=== PATIENT | female | born 1985 | race Caucasian/White ===

== ENCOUNTER 2023-03-07 10:08 | Outpatient (CLI) | payer BC, SELFPAY ==
--- NOTE | 2023-03-07 10:15 | CRLHL7_ITS ---
For Patients: As a result of the Century Cures Act, medical imaging exams and procedure reports are released immediately into your electronic medical record. You may view this report before your referring provider. If you have questions, please contact your health care provider. INDICATION: VAGINAL BLEEDING COMPARISON: None. TECHNIQUE: Real-time leonardo-scale imaging of the pelvis was performed. FINDINGS: Sonographic imaging demonstrates a single living intrauterine gestation. The embryo demonstrates a regular cardiac rate measuring 123 beats per minute. The embryo`s crown-rump length measurement of 0.7 cm corresponds to a gestational age of 6 weeks 4 days with a sonographic due date of 10/27/2023. There is a normal-appearing yolk sac. There are no gross abnormalities noted within the embryo at this early state of development. The gestational sac has a normal appearance. There is a 1.3 x 1.5 x 0.9 cm perigestational hemorrhage. The amount of fluid within the sac appears appropriate for gestational age. The cervix is closed. The myometrium appears normal. The ovaries are of normal size. Corpus luteal cyst left ovary. There are no suspicious fluid collections noted in the cul-de-sac. IMPRESSION: Single living intrauterine with sonographic gestational age 6 weeks 4 days and sonographic due date 10/27/2023. Left fundal subchorionic hemorrhage measuring 1.3 x 1.5 x 0.9 cm. Dictated by Koby Burks MD @ 03/07/2023 10:51:36 AM (Electronically Signed)
== END 2023-03-07 10:09 | disposition home or self-care (01) ==
LOC: US 10:09
PROVIDERS: Visit Provider Physician Assistant
DX: O09.521 Supervision of elderly multigravida, first trimester (principal); Z3A.01 Less than 8 weeks gestation of pregnancy
CPT/HCPCS: 76817; 86703; 86803; 86850; 86900; 86901; 87086; 87340

== ENCOUNTER 2023-03-07 11:25 | Outpatient (CLI) | payer BC, SELFPAY | END 2023-03-07 11:26 | disposition home or self-care (01) | PROVIDERS: Visit Provider Advanced Practice Midwife | DX: Z34.91 Encounter for supervision of normal pregnancy, unspecified, first trimester (principal); Z3A.01 Less than 8 weeks gestation of pregnancy | CPT/HCPCS: 86592; 86703; 86762; 86787; 86803; 86850; 86900; 86901; 87086; 87340 ==

== ENCOUNTER 2023-07-22 15:32 | Outpatient (CLI) | payer BC, SELFPAY ==
--- OUTSIDE RECORDS SUMMARY | 2023-07-22 15:36 | XMS_ITS | Clinical Summary ---
Author Name Unknown Organization [email or web address] [facility] Address [place], [place] [address] Care Team Providers Care Cello Teacher Name Role Phone Brayan, Jerri Petty CNM Primary Care Provider +1- [phone] Allergies No known active allergies Medications Medication Sig Dispensed Refills Start Date End Date Status PHENERGAN-CODEINE 6.25 MG-10 MG/5 ML SYRUP take 5 milliliters by oral route every 6 hours as needed, not to exceed 30 ml in 24 hours 180 0 11/18/2008 Active Active Problems Problem Noted Date Diagnosed Date Multigravida of advanced maternal age in second trimester 05/30/2023 History of delivery, antepartum 023 History of gestational hypertension 05/30/2023 MPP Supervision of high-risk 3 Overview: Bárbara Camposllo : 1985 MPP ULTRASOUND/TESTING PATIENT MPP CONSULT ON Support person name: ULTRASOUND TYPE: L2 REASON FOR VISIT: AMA NEXT VISIT ALERTS: NURSING VISIT ALERT: Create and link episode at day of visit. Document in Dating section. GA: 18w6d Final VON by LMP LMP Date: 01/18/23 VON: 10/25/23 Early US: Date: GA: 6w4d VON: 10/27/23 PrePregnancy Weight: 161 Height: 5'4 BMI: 27.6 PLANS & FUTURE APPOINTMENTS: ULTRASOUND/GROWTH PLAN: - Through: - Growth: Next TESTING PLAN: - Testing: Through DELIVERY PLAN: - Scheduled delivery: - Preferred delivery location: PRIMARY DIAGNOSIS: 37 y.o. . Estimated Date of Delivery: 10/25/23. MATERNAL AMA (38 at delivery) 202 - Term LTCS for NRFHT, GHTN, was on labetalol and stopped 6 weeks PREVIOUS ULTRASOUNDS: 03/07/23 6w4d CRL (PCP) ECHO: REFERRING PHYSICIAN/PHONE/LAST UPDATE: Marifer Morrissey Primary MD approves scheduling of recommended ultrasounds/testing: Not specified SPECIALISTS/CONSULTS: Include: Specialty MD Clinic Name Phone# [place] and ADDED TO PATIENT CARE TEAM GENETICS: Declines/Not Done CARE COORDINATION: PERTINENT LABS: Labs reviewed? Normal? Blood type: O Positive Antibody screen: Negative Non-[facility] labs need to be entered in [email or web address]? Yes PERTINENT MEDS: bASA PROCEDURES: IF FGR <10% or EFW <2000 grams: Add FGRPCOM PLAN OF CARE: Original and updated POC Comments Yes Encounters Date Type Department Care Team Description 06/03/2023 Telephone [facility] [address] [place] [phone] Jo Cueto MBBS Appointment 06/03/2023 Travel 05/30/2023 2:13 PM RECYCLING OPERATOR - 05/30/2023 11:59 PM RECYCLING OPERATOR Hospital Encounter [facility] [address] [place] [address] Jerri Schmidt CNM Supervision of high risk in second trimester (Primary Dx); High risk , antepartum; Multigravida of advanced maternal age in second trimester; History of delivery, antepartum; History of gestational hypertension 05/30/2023 Travel 04/30/2023 Transcribe Orders [facility] [address] [address] Jerri Schmidt CNM 04/30/2023 Transcribe Orders [facility] [address] [address] Consuelo Bailey HUC from Last 3 Months Immunizations Name Administration Dates Next Due Tdap 01/14/2008 Social History Tobacco Use Types Packs/Day Years Used Date Smoking Tobacco: Every Day Cigarettes Comments Yes Sex and Gender Information Value Date Recorded Sex Assigned at Not on file Gender Identity Not on file Sexual Orientation Not on file Obstetrics History Para Term AB IAB SAB Ectopic Multiple Livin g Live Births 4 1 1 2 1 1 1 1 Date Outcome GA Total Labor Labor/2nd/3rd Weight Sex Delivery Anes PTL Raina A1 A5 Name Cl in IAB SAB 03/09 Term 37w 1d 0h 02m 0h 02m 2.42 kg (5 lb 5.4 oz) M CS-Unspec Epidu ral N Brielle ng 9 9 LIANNA TOMI,B SAGE BOY David servin MD Complications:-alen barbara hypertension Delivery Location:[facility] [place]) Current Last Filed Vital Signs Vital Sign Reading Time Taken Comments Blood Pressure 120/70 11/18/2008 3:59 PM CDT Pulse - - Temperature 37.6 ??C (99.7 ??F) 11/18/2008 3:59 PM CD T Respiratory Rate - - Oxygen Saturation - - Inhaled Oxygen Concentration - - Weight 65.9 kg (145 lb 3.2 oz) 11/18/2008 3:59 P M CDT Height - - Body Mass Index - - Plan of Treatment Health Maintenance Due Date Last Done Comments Depression screening for age 12+ 1997 HIV for age 15-65 2000 BMI (ht and wt on same day) for age 18+ 2003 Hepatitis C screening for age 18-79 2003 Pap test for age 21-65 2006 Tetanus booster 01/13/2018 01/14/2008 Influenza for age 9-49 03/01/2023 Tdap Completed 01/14/2008 COVID-19 vaccine series Completed 05/17/20 23, 02/07/2022, 11/12/2020, Additional history exists Pneumococcal series for age 6-64 Aged Out No longer eligible based on patient's age to complete this topic Procedures Procedure Name Priority Date/Time Associated Diagnosis Comments US OB DETAIL ANATOMY SINGLE Routine 05/30/2023 3:14 PM RECYCLING OPERATOR High risk , antepartum from Last 3 Months Results * US OB DETAIL ANATOMY SINGLE (05/30/2023 3:14 PM RECYCLING OPERATOR) Anatomical Region Laterality Modality , 2or 3 TRIMESTER Ultrasound 05/30/2023 3:02 PM RECYCLING OPERATOR Narrative 05/30/2023 3:55 PM RECYCLING OPERATOR Referred By: JERRI ??BRAYAN ??CNM Indications Code 18 weeks gestation of Z3A.18 Advanced maternal age, multigravida 40806 Hx of small baby Previous C/S Low risk NIPT IMPRESSION: Intrauterine at 18w 6d. presentation is Variable. EFW 260 grams, percentile: 45. ?? Growth parameters and estimated weight are appropriate for gestational age. ? No major structural anomalies identified. No markers for aneuploidy identified. Normal Deepest Vertical Pocket of amniotic fluid: 4.8 ??cm. Placental location: Anterior. ?? There is no evidence of placenta previa. The placental edge is 2.0cm from the internal os. There are no signs of placenta accreta spectrum. The transabdominal cervical length is 3 cm. ?? RECOMMENDATIONS: -Return to primary provider for continued care. -No alterations in the delivery plan are necessary. -No medication changes are indicated. Continue aspirin until delivery. -No BPPs or NSTs suggested. -The option of amniocentesis was presented and Bárbara asked multiple thoughtful questions. For genetic counseling visit if she would like to pursue amniocentesis, she will call our office. -Recommend a growth ultrasound at 32-34 weeks' due to history of a prior SGA infant and hypertensive disorder of . -OK to perform the recommended follow up growth US in the primary OB office with referral back to [facility] if growth restriction is identified. COMMENT: The patient was seen by the Perinatologist today. ??The previous ultrasound and the records were reviewed. ??The results of today's ultrasound were communicated to the patient. ?? Alternatives available for detecting anomalies, aneuploidy and predicting developmental outcome for this were ??discussed as indicated. ??The risks, benefits and limitations of maternal serum screening, ultrasound, and genetic amniocentesis were reviewed with the patient. ??At the conclusion of our visit the patient declined any further genetic screening or testing, being satisfied by the risk reduction of today's normal ultrasound study. She reports a low risk NIPT result, though this was not sent to our office for review at the time of her referral. Bárbara asked multiple thoughtful questions about amniocentesis, including the information obtained, the risks of the procedure, and she is considering an amnio for reassurance purposes. We reviewed the option of a virtual genetic counseling appointment to further discuss the potential information gained from amnio, the risk of an uninterpretable or unclear result (such as a variant of unknown significance). Bárbara & her partner will discuss further and call our office if they would like to proceed with amniocentesis. We reviewed her history of gestational hypertension and SGA infant, her son was 5.5 lbs at at 37 weeks. She is taking low dose aspirin which I recommend she continue until delivery. Unclear if SGA was related to placental dysfunction or hypertension but, given the recurrence risk of poor growth, a 3rd trimester scan is reasonable. We reviewed her history of . No signs of placenta previa, placenta accreta spectrum, or complication of the prior hysterotomy. She is undecided on mode of delivery and will continue to discuss with the primary OB team. All questions answered. New government regulations related to the Cures act require that this note be released to the patient immediately, sometimes before the referring provider has been contacted. ??A portion of the information was presented verbally to the patient. ??The remainder is submitted as background for the referring provider, to be discussed as needed. Medical Decision Making: Moderate Level 79783 ?Multiple Diagnoses including with AMA, history of gHTN, history of SGA, history of ?Moderate Data including review of prior ultrasound and review of prior external notes, personal review/interpretation of labs and records ?Low risk of mortality to the fetus from amniocentesis which was considered and declined. Services Provided: Procedures Code DETAIL ANATOMY 76525.0 Procedure Note Maite Adamson MD - 05/30/2023 Referred By: JERRI SCHMIDT [facility] IndicationsCode 18 weeks gestation of cbdhgvfaxF1Q.18 Advanced maternal age, [id number] Hx of small baby Previous C/S Low risk NIPT IMPRESSION: Intrauterine at 18w 6d. presentation is Variable. EFW 260 grams, percentile: 45. Growth parameters and estimated weight are appropriate forgestational age. No major structural anomalies identified. No markers for aneuploidy identified. Normal Deepest Vertical Pocket of amniotic fluid: 4.8 cm. Placental location: Anterior. There is no evidence of placenta previa. The placental edge is 2.0cm fromthe internal os. There are no signs of placenta accreta spectrum. The transabdominal cervical length is 3 cm. RECOMMENDATIONS: -Return to primary provider for continued care. -No alterations in the delivery plan are necessary. -No medication changes are indicated. Continue aspirin until delivery. -No BPPs or NSTs suggested. -The option of amniocentesis was presented and Bárbara asked multiplethoughtful questions. For genetic counseling visit if she would like to pursue amniocentesis, [place] call our office. -Recommend a growth ultrasound at 32-34 weeks' due to history of a priorSGA infant and hypertensive disorder of . -OK to perform the recommended follow up growth US in the primary OBoffice with referral back to [facility] if growth restriction is identified. COMMENT: The patient was seen by the Perinatologist today. The previous ultrasoundand the records were reviewed. The results of today's ultrasound werecommunicated to the patient. Alternatives available for detecting anomalies, aneuploidy andpredicting developmental outcome for this were discussed as indicated. The risks,benefits and limitations of maternal serum screening, ultrasound, and genetic amniocentesis werereviewed with the patient. At the conclusion of our visit the patient declined any furthergenetic screening or testing, being satisfied by the risk reduction of today's normalultrasound study. She reports a low risk NIPT result, though this was not sent to our office for reviewat the time of her referral. Bárbara asked multiple thoughtful questions about amniocentesis,including the information obtained, the risks of the procedure, and she is consideringan amnio for reassurance purposes. We reviewed the option of a virtual geneticcounseling appointment to further discuss the potential information gained from amnio, the risk ofan uninterpretable or unclear result (such as a variant of unknown significance). Bárbara & herpartner will discuss further and call our office if they would like to proceed withamniocentesis. We reviewed her history of gestational hypertension and SGA , renetta was 5.5 lbs at at 37 weeks. She is taking low dose aspirin which I recommend shecontinue until delivery. Unclear if SGA was related to placental dysfunction orhypertension but, given the recurrence risk of poor growth, a 3rd trimester scan is reasonable. We reviewed her history of . No signs of placenta previa,placenta accreta spectrum, or complication of the prior hysterotomy. She is undecided on mode ofdelivery and will continue to discuss with the primary OB team. All questions answered. New government regulations related to the Cures act requirethat this note be released to the patient immediately, sometimes before the referringprovider has been contacted. A portion of the information was presented verbally to thepatient. The remainder is submitted as background for the referring provider, to be discussed asneeded. Medical Decision Making: Moderate Level 21843 Multiple Diagnoses including with AMA, history of gHTN,history of SGA, history of Moderate Data including review of prior ultrasound and review of priorexternal notes, personal review/interpretation of labs and records Low risk of mortality to the fetus from amniocentesis which wasconsidered and declined. Services Provided: ProceduresCode DETAIL [id number] Jerri Schmidt CNM from Last 3 Months Care Teams Cello Teacher Relationship Specialty Start Date End Date Jerri Schmidt CNM [address] [place] [phone] PCP - General Certified Nurse Alteration Tailor 05/30/23
== END 2023-07-22 15:33 | disposition home or self-care (01) ==
PROVIDERS: Visit Provider Advanced Practice Midwife
DX: O09.522 Supervision of elderly multigravida, second trimester (principal); O13.2 Gestational [pregnancy-induced] hypertension without significant proteinuria, second trimester; Z3A.26 26 weeks gestation of pregnancy
CPT/HCPCS: 82565; 82570; 84156; 84450; 84460; 84520; 84550

== ENCOUNTER 2023-07-25 06:00 | Outpatient (CLI) | payer BC, SELFPAY ==
--- OUTSIDE RECORDS SUMMARY | 2023-07-26 06:49 | XMS_ITS | Clinical Summary ---
Author Name Unknown Organization [employer] [facility] [employer] [facility] Address [place], [place] [address] Care Team Providers Care Dope Maintenance Worker Name Role Phone Brayan, Jerri Petty CNM Primary Care Provider +1- [phone] Allergies No known active allergies Medications Medication [...] MPP Supervision of high-risk 3 Overview: Bárbara Mix Fuller : 1985 MPP ULTRASOUND/TESTING PATIENT MPP CONSULT [...] [facility] labs need to be entered in [employer]? Yes PERTINENT MEDS: bASA PROCEDURES: IF FGR <10% or EFW <2000 grams: Add FGRPCOM PLAN OF CARE: Original and updated POC Comments Yes Encounters Date Type Department Care Team Description 06/03/2023 Telephone [facility] [address] [place] [phone] Jo Cueto MBBS Appointment 06/03/2023 Travel 05/30/2023 2:13 PM SOCIAL WORKER HEALTH SERVICES - 05/30/2023 11:59 PM SOCIAL WORKER HEALTH SERVICES Hospital Encounter [facility] [address] [place] [address] Jerri Schmidt CNM Supervision of high risk in second trimester (Primary Dx); High risk , antepartum; Multigravida of advanced maternal age in second trimester; History of delivery, antepartum; History of gestational hypertension 05/30/2023 Travel 04/30/2023 Transcribe Orders [facility] [address] [address] Jerri Schmidt CNM 04/30/2023 Transcribe Orders [facility] [address] [address] Consuelo Bailey HUC from Last 3 Months [...] David servin MD Complications:-alen barbara hypertension Delivery Location:[facility] [place]) Current Last Filed Vital Signs Vital [...] DETAIL ANATOMY SINGLE Routine 05/30/2023 3:14 PM SOCIAL WORKER HEALTH SERVICES High risk , antepartum from Last 3 Months Results * US OB DETAIL ANATOMY SINGLE (05/30/2023 3:14 PM SOC[facility]) Anatomical Region Laterality Modality , 2or 3 TRIMESTER Ultrasound 05/30/2023 3:02 PM SOCIAL WORKER [facility] Narrative 05/30/2023 3:55 PM SOCIAL WORKER HE[facility] SERVICES Referred By: JERRI ??BRAYAN ??CNM Indications Code 18 weeks gestation of Z3A.18 Advanced maternal age, multigravida 14096 Hx of small baby Previous C/S Low [...] primary OB office with referral back to [facility] if growth restriction is identified. COMMENT: The [...] as needed. Medical Decision Making: Moderate Level 46328 ?Multiple Diagnoses including with AMA, history of gHTN, history of SGA, history of ?Moderate Data including review of prior ultrasound and review of prior external notes, personal review/interpretation of labs and records ?Low risk of mortality to the fetus from amniocentesis which was considered and declined. Services Provided: Procedures Code DETAIL ANATOMY 22960.0 Procedure Note Maite Adamson MD - 05/30/2023 Referred By: JERRI SCHMIDT [facility] IndicationsCode 18 weeks gestation of rrckyyzbsI3F.18 Advanced maternal age, [id number] Hx of small baby Previous C/S Low [...] the primary OBoffice with referral back to [facility] if growth restriction is identified. COMMENT: The [...] discussed asneeded. Medical Decision Making: Moderate Level 85705 Multiple Diagnoses including with AMA, history of gHTN,history of SGA, history of Moderate Data including review of prior ultrasound and review of priorexternal notes, personal review/interpretation of labs and records Low risk of mortality to the fetus from amniocentesis which wasconsidered and declined. Services Provided: ProceduresCode DETAIL [id number] Jerri Shcmidt CNM from Last 3 Months Care Teams Dope Maintenance Worker Relationship Specialty Start Date End Date Jerri Schmidt CNM [address] [place] [phone] PCP - General Certified Nurse Insurance Representative 05/30/23
== END 2023-07-25 06:01 | disposition home or self-care (01) ==
LOC: NFLDREF 07-26 06:47
PROVIDERS: Visit Provider Advanced Practice Midwife
DX: O09.522 Supervision of elderly multigravida, second trimester (principal); G43.909 Migraine, unspecified, not intractable, without status migrainosus; R80.9 Proteinuria, unspecified
CPT/HCPCS: 82570; 84156

== ENCOUNTER 2023-08-02 14:49 | Outpatient (CLI) | payer BC, SELFPAY ==
--- OUTSIDE RECORDS SUMMARY | 2023-08-02 14:50 | XMS_ITS | Clinical Summary ---
Author Name Unknown Organization [employer] [facility] [employer] Address [place], [place] [address] Care Team Providers Care Psychiatric Orderly Name Role Phone Brayan, Jerri Petty CNM Primary Care Provider +1- [phone] Allergies No known active allergies Medications Medication [...] MPP Supervision of high-risk 3 Overview: Bárbara Fuller : 1985 MPP ULTRASOUND/TESTING PATIENT MPP [...] Delivery: 10/25/23. MATERNAL AMA (38 at delivery) 2021 - Term LTCS for NRFHT, GHTN, was [...] [facility] labs need to be entered in [employer]? Yes PERTINENT MEDS: bASA PROCEDURES: IF FGR <10% or EFW <2000 grams: Add FGRPCOM PLAN OF CARE: Original and updated POC Comments Yes Encounters Date Type Department Care Team Description 06/03/2023 Telephone [facility] [address] [place] [address] Jo Cueto MBBS Appointment 06/03/2023 Travel 05/30/2023 2:13 PM BARREL BUILDER - 05/30/2023 11:59 PM BARREL BUILDER Hospital Encounter [facility] [address] [facility] [address] [place], [place] [id number] Jerri Schmidt CNM Supervision of high risk in second trimester (Primary Dx); High risk , antepartum; Multigravida of advanced maternal age in second trimester; History of delivery, antepartum; History of gestational hypertension 05/30/2023 Travel from Last 3 Months Immunizations Name Administration [...] 9 9 LIANNA TOMI,B SAGE BOY David medel Zheng servin MD Complications:-alen barbara hypertension Delivery [facility]) Current Last Filed Vital Signs Vital [...] Tdap Completed 01/14/2008 COVID-19 vaccine series Completed 05/17/20, 02/07/2022, 11/12/2020, Additional history exists Pneumococcal series for age 6-64 Aged Out No longer eligible based on patient's age to complete this topic Procedures Procedure Name Priority Date/Time Associated Diagnosis Comments US OB DETAIL ANATOMY SINGLE Routine 05/30/2023 3:14 PM BARREL BUILDER High risk , antepartum from Last 3 Months Results * US OB DETAIL ANATOMY SINGLE (05/30/2023 3:14 PM BARREL BUILDER) Anatomical Region Laterality Modality , 2or 3 TRIMESTER Ultrasound 05/30/2023 3:02 PM BARREL BUILDER Narrative 05/30/2023 3:55 PM BARREL BUILDER Referred By: JERRI ??BRAYAN ??CNM Indications Code 18 weeks gestation of Z3A.18 Advanced maternal age, multigravida 86755 Hx of small baby Previous C/S Low [...] due to history of a prior SGA and hypertensive disorder of . -OK to perform the recommended follow up growth US in the primary OB office with referral back to [facility] if growth restriction is identified. COMMENT: [...] as needed. Medical Decision Making: Moderate Level 95649 ?Multiple Diagnoses including with AMA, history of gHTN, history of SGA, history of ?Moderate Data including review of prior ultrasound and review of prior external notes, personal review/interpretation of labs and records ?Low risk of mortality to the fetus from amniocentesis which was considered and declined. Services Provided: Procedures Code DETAIL ANATOMY 99471.0 Procedure Note Maite Adamson MD - 05/30/2023 Referred By: JERRI SCHMIDT [facility] IndicationsCode 18 weeks gestation of [id number].18 Advanced maternal age, [id number] Hx of small baby Previous C/S Low [...] weeks' due to history of a priorSGA and hypertensive disorder of . -OK to perform the recommended follow up growth US in the primary OBoffice with referral back to [facility] if growth restriction is identified. COMMENT: [...] a variant of unknown significance). Bárbara & ivon will discuss further and call our office if they would like to proceed withamniocentesis. We reviewed her history of gestational hypertension and SGA infant, renetta was 5.5 lbs at at 37 [...] answered. New government regulations related to the 21st Century Cures act requirethat this note be released to the patient immediately, sometimes before the referringprovider has been contacted. A portion of the information was presented verbally to thepatient. The remainder is submitted as background for the referring provider, to be discussed asneeded. Medical Decision Making: Moderate Level 10869 Multiple Diagnoses including with AMA, history of gHTN,history of SGA, history of Moderate Data including review of prior ultrasound and review of priorexternal notes, personal review/interpretation of labs and records Low risk of mortality to the fetus from amniocentesis which wasconsidered and declined. Services Provided: ProceduresCode DETAIL [id number] Jerri cShmidt CNM from Last 3 Months Care Teams Psychiatric Orderly Relationship Specialty Start Date End Date Jerri Schmidt CNM [address] [place] [phone] PCP - General Certified Nurse Plumbing Installer 05/30/23
--- NOTE | 2023-08-02 15:00 | CRLHL7_ITS ---
For Patients: As a result of the Cures Act, medical imaging exams and procedure reports are released immediately into your electronic medical record. You may view this report before your referring provider. If you have questions, please contact your health care provider. OB ULTRASOUND LMP: 01/18/2023. VON by LMP: 10/25/2023. GA: 28 w, 0 d. Single. COMPARISON: No. INDICATION: Essential hypertension. CERVIX: Not visualized. POSITIONING: Breech, transverse. AMNIOTIC FLUID: 7.4 cm. PLACENTA: Technique: Transabdominal. PLACENTA POSITION: Anterior. DOPPLER: heart rate: 132 bpm. Biometry: BPD: 7.3 cm. 29 w, 1 d, 75 percent. HC: 26.9 cm. 29 w, 2 d, 60 percent. AC: 24.6 cm. 28 w, 6 d, 67 percent. FL: 5.2 cm. 27 w, 4 d, 24 percent. FL/AC ratio: 21.06 percent. HC/AC ratio: 1.09. EFW: 1233 g. Weight: 2 lbs, 11 oz. age by this US: 28 w, 5 d. VON by this US: 10/20/2023. Percentile by VON: 56 percent. IMPRESSION: Single live intrauterine gestation at 28 weeks 5 days. VON of 10/20/2023. Single deepest pocket measures 7.4 cm bordering on polyhydramnios. Cristy Suarez M.D. Diagnostic/Breast Radiologist [email or web address] LEON/[email or web address] singh/Dictated by: Cristy Suarez MD @ 08/05/2023 5:55:00 AM (Electronically Signed)
== END 2023-08-02 14:50 | disposition home or self-care (01) ==
LOC: US 14:49
PROVIDERS: Visit Provider Obstetrics & Gynecology
DX: O10.913 Unspecified pre-existing hypertension complicating pregnancy, third trimester (principal); O40.3XX0 Polyhydramnios, third trimester, not applicable or unspecified; O09.523 Supervision of elderly multigravida, third trimester; Z3A.28 28 weeks gestation of pregnancy
CPT/HCPCS: 76815; 86592

== ENCOUNTER 2023-08-30 12:13 | Outpatient (CLI) | payer BC, SELFPAY ==
--- NOTE | 2023-08-30 12:15 | US_ITS ---
Patient: JODEE PEREZ Facility:?[facility] RIS Patient ID:?[id number] Site Patient ID:?[id number]. Site :?1985 Study:?US-OB Pelvis BPP W GROWTH-08/30/2023 12:49:39 PM Ordering Physician:?REJI SINGH Final Report: Indication: Gestational proteinuria Technique: Transabdominal grayscale and color Doppler ultrasound of the gravid uterus and fetus Comparison: None Findings: Provided gestational age: 32 weeks and 0 days. Intrauterine gestation in transverse lie. The heart rate is 145 beats per minute and regular. Biparietal diameter: 8.1 centimeters Head circumference: 30.4 centimeters Abdominal circumference: 29.4 centimeters Femur length: 6.0 centimeters. Composite sonographic estimated gestational age 32 weeks and 5 days. The estimated weight is 2037 grams or 4 pounds and 8 ounces. This is the 63rd percentile for gestational age. movement: 2/2 tone: 2/2 Respiratory activity: 2/2 Amniotic Fluid: 2/2 Deepest vertical pocket: 4.4 centimeters. Anterior placenta. No previa. The maternal cervix was not seen. Impression: Viable intrauterine gestation with growth concordant with dates and a biophysical profile score of 8/8. Dictated by Jerri Jules MD @ 08/31/2023 8:06:26 AM Signed by:?Jerri Jules MD @08/31/2023 8:06:26 AM (Electronic Signature)
== END 2023-08-30 12:14 | disposition home or self-care (01) ==
LOC: US 12:13
PROVIDERS: Visit Provider Obstetrics & Gynecology
DX: O12.13 Gestational proteinuria, third trimester (principal); Z3A.32 32 weeks gestation of pregnancy
CPT/HCPCS: 76816; 76819

== ENCOUNTER 2023-09-06 08:15 | Outpatient (CLI) | payer BC, SELFPAY ==
--- NOTE | 2023-09-06 08:15 | US_ITS ---
Patient: JODEE PEREZ Facility:?[facility] Patient ID:?[id number] Site Patient ID:?[id number]. Site :?1985 Study:?US-OB Pelvis BPP-09/06/2023 9:43:36 AM Ordering Physician:?Darya Thomson Final Report: INDICATION: Gestational Proteinuria COMPARISON: 08/30/2023 TECHNIQUE: Real time leonardo scale imaging of the fetus was performed. Without non-stress testing. FINDINGS: Sonographic imaging demonstrates a single living intrauterine gestation. Fetus demonstrates a regular cardiac rate of 135 beats per minute. Fetus has a vertex position. The amniotic fluid volume appears normal and there is a single deepest pocket measurement of 6.8 cm. The fetus was active and demonstrated normal breathing movements. There was normal flexion and extension of the trunk and extremities. IMPRESSION: Normal biophysical profile score of 8 out of 8. Dictated by Koby Burks MD @ 09/06/2023 10:06:10 AM Signed by:?Koby Burks MD @09/06/2023 10:06:10 AM (Electronic Signature)
== END 2023-09-06 08:16 | disposition home or self-care (01) ==
LOC: US 08:15
PROVIDERS: Visit Provider Obstetrics & Gynecology
DX: O12.10 Gestational proteinuria, unspecified trimester (principal)
CPT/HCPCS: 76819

== ENCOUNTER 2023-09-13 12:56 | Outpatient (CLI) | payer BC, SELFPAY ==
--- NOTE | 2023-09-13 13:00 | US_ITS ---
Patient: JODEE PEREZ Facility:?[facility] RIS Patient ID:?[id number] Site Patient ID:?[id number]. Site :?1985 Study:?US-OB Pelvis BPP-09/13/2023 1:33:31 PM Ordering Physician:?REJI SINGH Final Report: INDICATION: Gestational proteinuria. COMPARISON: OB ultrasound 09/06/2023. TECHNIQUE: Ultrasound OB pelvis biophysical profile. Real time leonardo scale imaging of the fetus was performed without non-stress testing. FINDINGS: Sonographic imaging demonstrates a single living intrauterine gestation. The fetus demonstrates a regular cardiac rate of 134 beats per minute. The fetus has a cephalic orientation. The placenta lies anteriorly. Single deepest pocket measures 6.8 cm (2/2). The fetus was active (2/2). There was normal flexion and extension of the trunk and extremities (2/2). The fetus demonstrated normal breathing movements (2/2). IMPRESSION: Normal biophysical profile score 8 out of 8. Dictated by Rosa Parry MD @ 09/14/2023 2:49:46 AM Signed by:?Rosa Parry MD @09/14/2023 2:49:46 AM (Electronic Signature)
== END 2023-09-13 12:57 | disposition home or self-care (01) ==
LOC: US 12:57
PROVIDERS: Visit Provider Obstetrics & Gynecology
DX: O12.10 Gestational proteinuria, unspecified trimester (principal)
CPT/HCPCS: 76819; 82565; 82570; 84156

== ENCOUNTER 2023-09-19 12:14 | Outpatient (CLI) | payer BC, SELFPAY ==
--- NOTE | 2023-09-19 12:15 | US_ITS ---
Patient: JODEE PEREZ Facility:?[facility] Patient ID:?[id number] Site Patient ID:?[id number]. Site :?1985 Study:?US-OB Pelvis BPP-09/19/2023 1:02:26 PM Ordering Physician:?Darya Thomson Final Report: INDICATION: Hypertension COMPARISON: 09/13/2019 TECHNIQUE: Real time leonardo scale imaging of the fetus was performed. Without non-stress testing. FINDINGS: Sonographic imaging demonstrates a single living intrauterine gestation. Fetus demonstrates a regular cardiac rate of 149 beats per minute. Fetus has a vertex position. The amniotic fluid volume appears normal and there is a single deepest pocket measurement of 5.0 cm. The fetus was active and demonstrated normal breathing movements. There was normal flexion and extension of the trunk and extremities. IMPRESSION: Normal biophysical profile score of 8 out of 8. Dictated by Koby Burks MD @ 09/20/2023 9:56:03 AM Signed by:?Koby Burks MD @09/20/2023 9:56:03 AM (Electronic Signature)
== END 2023-09-19 12:15 | disposition home or self-care (01) ==
LOC: US 12:15
PROVIDERS: Visit Provider Obstetrics & Gynecology
DX: O16.9 Unspecified maternal hypertension, unspecified trimester (principal); O12.10 Gestational proteinuria, unspecified trimester
CPT/HCPCS: 76819; 80069; 82043; 82570; 87086

== ENCOUNTER 2023-09-27 13:01 | Outpatient (CLI) | payer BC, SELFPAY ==
--- NOTE | 2023-09-27 13:00 | US_ITS ---
Patient: JODEE PEREZ Facility:?[facility] RIS Patient ID:?[id number] Site Patient ID:?[id number]. Site :?1985 Study:?US-OB Pelvis BPP W GROWTH-09/27/2023 1:46:21 PM Ordering Physician:?REJI SINGH Final Report: BIOPHYSICAL PROFILE AND FOLLOW-UP LIMITED OB US INDICATION: Chronic HTN in . VON by LMP: 10/25/2023. GA: 36 weeks 0 days. Christensen. COMPARISON: 09/19/2023, 09/13/2023 and 09/06/2023. CERVIX: Not visualized. Positioning: Vertex. Amniotic Fluid: 7 cm SDP. Placenta Technique: TA. Placenta Position: Anterior. Heart Rate: 144 bpm. BPD: 8.7 cm, 35 weeks 2 days, 36%. HC: 32.5, 36 weeks 6 days, 38%. AC: 33.5 cm, 37 weeks 3 days, 90%. FL: 6.9 cm, 35 weeks 4 days, 34%. FL/AC Ratio: 20.71. HC/AC Ratio Percentage: 0.97. EFW: 2988 grams, 6 lb, 9 oz. Age by this US: 36 weeks 2 days. VON by this US: 10/23/2023. Percentile by VON: 69%. BIOPHYSICAL PROFILE Gross Body Movements: 2. Tone: 2. Respiratory Activity: 2. Amniotic Fluid SDP: 2. TOTAL: 8/8. IMPRESSION: 1. Single live intrauterine gestation at 36 weeks 2 days. VON of 10/23/2023. 2. Biophysical profile score 8 out of 8. Cristy Suarez M.D. Diagnostic/Breast Radiologist [email or web address] LEON/[email or web address] / DW/Dictated by: Cristy Suarez MD @ 09/29/2023 8:42:00 AM Signed by:Antonio Suarez MD @09/29/2023 5:35:13 PM (Electronic Signature)
== END 2023-09-27 13:02 | disposition home or self-care (01) ==
LOC: US 13:01
PROVIDERS: Visit Provider Obstetrics & Gynecology
DX: O10.913 Unspecified pre-existing hypertension complicating pregnancy, third trimester (principal); Z3A.36 36 weeks gestation of pregnancy
CPT/HCPCS: 76816; 76819; 87081; 87653

== ENCOUNTER 2023-10-18 15:18 | Outpatient (CLI) | payer BC, SELFPAY ==
--- OUTSIDE RECORDS SUMMARY | 2023-10-18 15:21 | XMS_ITS | Referral Summary ---
Author Name Unknown Organization [facility] Address [address] [place] [address] Care Team Providers Care Atmospheric Sciences Professor Name Role Phone Unavailable Primary Care Provider Unavailabl e Source Comments Patient records contain information from all sites at [facility]. For routine questions regarding patient records, call [phone] during business hours, M-F 8:00 AM - 5:00 PM Central Time. Record requests for emergency care only can be directed to [phone] at any time.[facility] Encounters Date Type Department Care Team Description 09/30/2023 2:30 PM CDT External Outreach Division of Nephrology and Hypertension in [place], [place] [address] [place] [phone] Abhishek Bullock Jr., D.O. Gestational Proteinuria First Trimester (HCC) (Primary Dx) 08/20/2023 2:30 PM PRECISION AIRCRAFT STRUCTURE ASSEMBLER External Outreach Division of Nephrology and Hypertension in [place], [place] [address] [place] [phone] Liliana Lee M.D., Ph.D. Proteinuria (Primary Dx); With Personal History Gestational Hypertension (HCC) from Last 3 Months Active Problems Problem Noted Date Diagnosed Date Gestational Proteinuria First Trimester 09/30/19 24 Comments Yes Social History Tobacco Use Types Packs/Day Years Used Date Smoking Tobacco: Never Assessed Nutrition Answer Date Recorded Nutrition: EVOO Fat Source Unknown 08/15 Nutrition: Servings of Fruits/Vegetables per Day Not on file 08/15/2023 Dental Answer Date Recorded Dental: Regular Dentist Unknown 08/15/19 24 Comments Yes Sex and Gender Information Value Date Recorded Sex Assigned at Not on file Gender Identity Not on file Sexual Orientation Not on file Last Filed Vital Signs Vital Sign Reading Time Taken Comments Blood Pressure 122/72 09/30/2023 2:59 PM CDT Pulse 97 09/30/2023 2:59 PM CDT Temperature - - Respiratory Rate - - Oxygen Saturation - - Inhaled Oxygen Concentration - - Weight - - Height 162.5 cm (5' 3.98) 09/30/2023 2:59 PM CD T Body Mass Index - - Plan of Treatment Not on file
--- OUTSIDE RECORDS SUMMARY | 2023-10-18 15:21 | XMS_ITS ---
Author Name Unknown Organization [facility] Address [address] [place] [address] Care Team Providers Care Set Up Inspector Name Role Phone Unavailable Unavailable Unavailable Surgery Details Not on file Complications Check Surgery Details section. Procedure Estimated Blood Loss Check Surgery Details section. Procedure Findings Check Surgery Details section. Procedure Specimens Taken Check Surgery Details section.
--- OUTSIDE RECORDS SUMMARY | 2023-10-18 15:21 | XMS_ITS | Encounter Summary ---
Author Name Unknown Organization [facility] Address [address] [place] [address] Care Team Providers Care Whiskey Regauger Name Role Phone Unavailable Primary Care Provider Unavailabl e Reason for Visit * Appointment Request (Routine) - Closed Specialty Diagnoses / Procedures Referred By Contjulia teague Referred To Contact Nephrology and Hypertension Referral ID Status Reason Start Date Expiration Date Visits Re quested Visits Authorized [id number] Closed 08/29/2023 08/28/2024 1 1 Encounter Details Date Type Department Care Team (Latest Contact Info) Description 09/30/2023 2:30 PM CDT External Outreach Division of Nephrology and Hypertension in [place], [place] [address] [place] [phone] Abhishek Bullock Jr., D.O. [address] [place] [phone] Gestational Proteinuria First Trimester (HCC) (Primary Dx) Social History Tobacco Use Types Packs/Day Years [...] on file Sexual Orientation Not on file documented as of this encounter Last Filed Vital Signs Vital Sign Reading Time Taken Comments Blood Pressure 122/72 09/30/2023 2:59 PM CDT Pulse 97 09/30/2023 2:59 PM CDT Temperature - - Respiratory Rate - - Oxygen Saturation - - Inhaled Oxygen Concentration - - Weight - - Height 162.5 cm (5' 3.98) 09/30/2023 2:59 PM CD T Body Mass Index - - documented in this encounter Progress Notes * Abhishek Bullock Jr., D.O. - 09/30/2023 2:30 PM CDT Referring Provider: DR Sam SUBJECTIVE REASON FOR VISIT [facility] Follow-up regards proteinuria in HISTORY OF PRESENT ILLNESS Ms. Fuller is a 38 y.o. female who presents with proteinuria complicating her current . This is her 4th , she had 1 live . She is currently at 36 weeks. We are visiting with her on the background of proteinuria discovered at 26 weeks, which was over 400 mg in 24 hours. She was subsequently rechecked at 518 mg in 24 hours on the 12 of September. She hasnot had lower extremity swelling, she has not had any elevation blood pressure. Home blood pressures have been in the 118-120 range. She does not have any right upper quadrant pain, she does not haveany shortness of breath at rest. She is feeling quite nauseated often, and has GERD symptoms. During her which completed in March of 2022, she underwent C- section and had elevatedblood pressures without proteinuria during that . Unfortunately baseline proteinuria was not done between her 2021 and the current . She is currently being treated with asp irin. She is excellent movements, and the size seems to be appropriate. She is planning on a on the 10 of October, likely [facility] where there is a intensive care unit. She is drinking plenty of fluids, no changes in urine character or quantity, her urine is not foamy, she does not have any dysuria urgency or frequency, no fevers no chills. Appreciate she saw obstetrics team on the 26 of September. No past medical history on file. No current outpatient medications on file. REVIEW OF SYSTEMS All other systems reviewed and are negative. OBJECTIVE BP 122/72 Pulse 97 Ht 162.5 cm PHYSICAL EXAMINATION General: Awake alert oriented HEENT: BAM, EOMI, Mucous membranes moist, no oral lesions Neck: No Masses, No Bruits Lungs: Clear to ascultation Heart: Regular Rate and Rhythm, No ectopy Murmurs or rubs Abdomen: Gravid abdomen Extremities: No cyanosis, No clubbing: No edema Neuro: Cranial Nerves intact, Gait is normal, strength grossly normal Skin: no suspicious lesions identified Psychiatric: Normal affect DIAGNOSTICS Note hemoglobin 11.6, serum sodium 132, creatinine 0.6 mg/dL, on the background of a substantial urine volume of over 3.9 L, she has 518 mg of proteinuria in 24 hours, of September 13, 2023 her protein to creatinine ratio 0.4 milligrams/gram ASSESSMENT / PLAN #1 Gestational Proteinuria First Trimester (HCC) She is sub nephrotic range proteinuria associated with the . Her previous in March of 2022 was complicated by hypertension, without proteinuria. Going forward: 1. Daily blood pressure management, initiate labetalol if blood pressure rises above 140 systolic 2. Continue aspirin 3. Continue vitamins 4. Continue with plan towards delivery in a center with capacity to handle NICU. She is planning toproceed with a trial of labor prior to the . 5. No NSAIDs or Mims 2 inhibitors 6. I have asked her to be extremely careful with sodium 7. Agree with her drinking fluids to the extent that she is manufacturing at least 3.5 L of urine. 8. Agree with a urinalysis with microalbumin to creatinine ratio and a 24 hour urine proximally 2-3months following her delivery. This was ordered by Dr. Stone. Total time: 30 minutes Counseling Time: 20 minutes Abhishek Bullock Jr., D.O. documented in this encounter Plan of Treatment Not on file documented as of this encounter Visit Diagnoses Diagnosis Gestational Proteinuria First Trimester (HCC)- Primary documented in this encounter
--- OUTSIDE RECORDS SUMMARY | 2023-10-18 15:21 | XMS_ITS | Encounter Summary ---
Author Name Unknown Organization [facility] Address [address] [place] [id number] Care Team Providers Care Bingo Manager Name Role Phone Unavailable Primary Care Provider Unavailabl e Reason for Visit * Appointment Request (Routine) - Closed Specialty Diagnoses / Procedures Referred By Sultana t Referred To Contact Nephrology and Hypertension Fallon Rueda M.D. [address] [place] [address] Referral ID Status Reason Start Date Expiration Date Visits Re quested Visits Authorized [id number] Closed 08/15/2023 08/14/2024 1 1 Encounter Details Date Type Department Care Team (Latest Contact Info) Description 08/20/2023 2:30 PM BLEACH LIQUOR MAKER External Outreach Division of Nephrology and Hypertension in [place], [place] [address] [place] [phone] Liliana Lee M.D., Ph.D. [address] [place] [phone] Proteinuria (Primary Dx); With Personal History Gestational Hypertension (HCC) Social History Tobacco Use Types Packs/Day Years Used Date Smoking Tobacco: Never Assessed Nutrition Answer Date Recorded Nutrition: EVOO Fat Source Unknown 08/15 Nutrition: Servings of Fruits/Vegetables per Day Not on file 08/15/2023 Dental Answer Date Recorded Dental: Regular Dentist Unknown 08/15/19 Comments Yes Sex and Gender Information Value Date Recorded Sex Assigned at Not on file Gender Identity Not on file Sexual Orientation Not on file documented as of this encounter Last Filed Vital Signs Vital Sign Reading Time Taken Comments Blood Pressure 130/80 08/20/2023 3:24 PM BLEACH LIQUOR MAKER Pulse 90 08/20/2023 3:24 PM BLEACH LIQUOR MAKER Temperature - - Respiratory Rate - - Oxygen Saturation - - Inhaled Oxygen Concentration - - Weight - - Height - - Body Mass Index - - documented in this encounter Consult Notes * Liliana Lee M.D., Ph.D. - 08/20/2023 2:30 PM CST Referring Provider: Fallon Rueda M.D. SUBJECTIVE REASON FOR CONSULT Proteinuria during . HISTORY OF PRESENT ILLNESS Mrs. Fuller is a 38-year-old lady with a prior history of gestational hypertension during her last . Patient recalls presenting uncontrolled hypertension by the end of her previous , and she was started on labetalol in the period, which was discontinued by 6 weeks after delivery. Last was complicated with small gestational age and she delivered at 37 weeksand baby weight was 5 pounds and 5 ounces. Patient was found to have proteinuria, first noticed at 26 weeks of gestation during her current . However, no prior baseline proteinuria measurement at the beginning of or prior to this . She has been monitoring her blood pressure at home, and it has been at goal. She remains normotensive, without requiring antihypertensive medications. She is taking aspirin 81 mg daily. She is monitored by our colleagues in [facility]. She is referred to Nephrology for monitoring and evaluation of her sub-nephrotic range proteinuria.Her proteinuria has remained unchanged, with a voocbxv-dm-eiozgrqwct ratio of 0.3, and she had a 24-hour collection that showed a proteinuria of 120 mg in 24 hours. She feels well and does not have any current concerns. She does not have any family history of preeclampsia and no family history of CKD, although her maternal grandmother was found to have renal cancer in her late 70s. REVIEW OF SYSTEMS All other systems were reviewed and are negative, rest as per HPI. OBJECTIVE BP 130/80 Pulse 90 PHYSICAL EXAMINATION General: No acute distress, breathing comfortably. Heart: Regular rate and rhythm. No murmurs, rubs or gallops. Respiratory: Regular inspiratory effort. No wheezes, no rhonchi. Abdomen: Soft, not tender, not distended. Present bowel sounds. Extremities: Full range of motion. Normal gait. No edema in lower extremities Neuro: No focal deficits. Alert and oriented X 4. Skin: Warm. No rashes. Psych: Answers questions appropriately. No signs of anxiety or depression noted. DIAGNOSTICS Labs: I have reviewed available labs in detail with patient. ASSESSMENT / PLAN #1 Proteinuria #2 Thirty weeks of gestational age #3 History of gestational hypertension The patient is referred to Nephrology for evaluation of her proteinuria during . It is sub-nephrotic ranging in the 400 mg by PCR, and 700 confirmed by 24 hour urine collection. I have recommended the patient to continue close monitoring. We will order labs for next month to repeat 24-hoururine collection and creatinine in serum and posteriorly, in September, we will repeat a creatinine along with a wnxvkuy-ya-qqagfuylub ratio. She is expected to deliver mid-September. She will follow up with my colleague, Dr. Bullock, in the week of September, expected to be seen prior to her delivery date. I appreciate Dr. Bullock's coverage during that week. I will follow up with her after delivery to monitor her proteinuria after . I have recommended the patient to continue to monitor her blood pressure at home. We have discussedproper blood pressure measurement technique. She will keep a log and keep us informed if her blood pressure presents to be elevated above 140/90 persistently, at which time I will recommend starting a ntihypertensive therapy. I have also recommended her to follow a low-salt diet and to increase her fruits and vegetables in her diet, as studies have shown that a plant-based diet may be beneficial to prevent preeclampsia and improve outcomes during . All questions were answered. Marli Correa M.D., Ph.D. CT CT Job ID: [id number] CH LIQUOR MAKER documented in this encounter Plan of Treatment Not on file documented as of this encounter Visit Diagnoses Diagnosis Proteinuria- Primary With Personal History Gestational Hypertension (HCC) documented in this encounter
--- OUTSIDE RECORDS SUMMARY | 2023-10-18 15:21 | XMS_ITS | Clinical Summary ---
Author Name Unknown Organization [facility] Address [address] [place] [id number] Care Team Providers Care Permit Review Assistant Name Role Phone Unavailable Primary Care Provider Unavailabl e Source Comments Patient records contain information from all sites at [facility]. For routine questions regarding patient records, call [phone] during business hours, M-F 8:00 AM - 5:00 PM Central Time. Record requests for emergency care only can be directed to [phone] at any time.[facility] Active Problems Problem Noted Date Diagnosed Date Gestational Proteinuria First Trimester 09/30/19 24 Comments Yes Encounters Date Type Department Care Team Description 09/30/2023 2:30 PM CDT External Outreach Division of Nephrology and Hypertension in [place], [place] [address] [place] [address] Abhishek Bullock Jr., D.O. Gestational Proteinuria First Trimester (HCC) (Primary Dx) 08/20/2023 2:30 PM FISH PITCHER External Outreach Division of Nephrology and Hypertension in [place], [place] [address] [place] [phone] Liliana Lee M.D., Ph.D. Proteinuria (Primary Dx); With Personal History Gestational Hypertension (HCC) from Last 3 Months Social History Tobacco Use Types Packs/Day Years [...] Health Maintenance Due Date Last Done Comments HIV Screening 1985 Hepatitis C Screening 1985 Lipid (Cholesterol) Screening 1985 Cervical Cancer Screening 03/11/2022 03/11/2019 Depression Screening (Annual PHQ-2) 07/01/2023 DTaP,Tdap,and Td Vaccines (10 - Td or Tdap) 08/15/2033 08/15/2023, 01/04/2022, 02/17/2018, Additional history exists RSV vaccine - (32-36 weeks) or 60+ years (1 - 1-dose 60+ series) 2045 Hepatitis B Vaccines Completed 03/29/1997, 10/22/1996, 10/13/1994, Additional history exists COVID-19 Vaccine Completed 05/17/2023, 03/2022, 11/12/2020, Additional history exists Influenza Vaccine Completed 05/17/2023 HPV Vaccines Aged Out No longer eligi ble based on patient's age to complete this topic Pneumococcal vaccine (0-64 years) Aged Out No longer eligible based on patient's age to complete this topic
--- OUTSIDE RECORDS SUMMARY | 2023-10-18 15:22 | XMS_ITS | Encounter Summary ---
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 Name Role Phone No Ref-Primary, Physician Primary Care Provider Reason for Visit * Auth/Cert (Routine) Specialty Diagnoses / Procedures Referred By Contjulia t Referred To Contact entry writer Diagnoses Previous section Sterilization Previous section [Z98.891] Sterilization [Z30.2] Procedures SC LIGATION,FALLOPIAN TUBE W/ SC REMOVAL OF FALLOPIAN TUBE SC W/ASSIST SPLIT SC DELIVERY ONLY SC DELIVERY+ CARE Repeat Section, bilateral Salpingectomy [facility] Delivery [address] [place] [address] Referral ID Status Reason Start Date Expiration Date Visits Re quested Visits Authorized [id number] 1 1 Encounter Details Date Type Department Care Team (Late st Contact Info) Description 10/11/2023 8:54 AM CDT Anesthesia Event [facility] [address] [place] [address] Mukesh Moralez MD [facility] [id number] [place], [place] [address] Derrick Cottrell MD [facility] [address] [place], [place] [id number] Anesthesia Record Procedure Summary Procedure Name Responsible Anesthesiologist Anesthesia Start Time Anesthesia Stop Time Repeat Section, bilateral Salpingectomy (Abdomen) Mukesh Moralez MD 10/11/23 0854 10/11/23 1023 Events Date Time Event Comment 10/11/2023 0804 0854 An Start 0854 An Start Data 0854 AN REASSESS I attest that I have identified and re-evaluated the patient immediately before the induction of anesthesia and I am satisfied that the anesthetic plan is suitable for the patient's condition and procedure. The first vital signs recorded are pre- induction. Angie Beach APRN [facility] 0854 Anesthesia Ready for Procedu re 0854 MD Present 0854 MD Present 0859 MD Present 0903 MD Present 0907 MD Present 0914 MD Present 0920 Uterine Incision 0921 MD Present 0921 Baby Delivered 09 MD Present 0923 Placenta Delivered 09 [facility] Ready for Procedure 0929 MD Present 0931 MD Present 0938 MD Present 1019 an stop data 1023 An Stop Electronically signed by Angie Beach APRN [facility] on October 11, 2023 10:26 AM Meds Name Total ketorolac 30 mg/mL 30 mg phenylephrine (JESUS-SYNEPHRINE) injection 300 mcg phenylephrine 0.1 mg/mL infusion (mcg/kg /min) 0.77 mg dexamethasone (DECADRON) 4 mg/mL 4 mg ondansetron 2 mg/mL 4 mg oxytocin 30 units in 500 mL 0.9% NaCl in fusion 500 mL 0.75% Hyperbaric Bupivacaine (Intratheca l) 1.8 mL Morphine PF 1 mg/mL (Intrathecal) 0.15 m g ceFAZolin Sodium (ANCEF) injection 2 g 2 g lactated ringers infusion 1,300 mL * Agents Name O2 N2O Air * Blood No blood administrations on file. Lines, Drains, and Airways Type Details Placement Removal Incision/Surgical Site 10/11/23; 1003; Lower; Abdomen; sutures/dermabond 10/11/23 1003 by Nicki Vazquez RN Peripheral IV 10/11/23; 0745; 20 G ; Right, Dorsal; Hand; Chlorhexidine; 1 10/11/23 0745 by Jordyn Espinosa RN 10/12/23 1040 by Vianca Coreas RN Urethral Catheter 10/11/23; 0902; Surgical procedure; 16 fr; POD 1 10/11/23 0902 by Nicki Vazquez RN 10/11/23 1820 by Kate Acosta RN documented in this encounter Social History Tobacco Use Types Packs/Day Years Used Date Smoking Tobacco: Former Cigarettes Alcohol Use Standard Drinks/Week Comments Not Currently 0 (1 standard drink = 0.6 oz pur e alcohol) Adolescent Education Answer Date Record ed Getting School Help Needed Not on file 10/02 Sex and Gender Information Value Date Recorded Sex Assigned at Not on file Gender Identity Not on file Sexual Orientation Not on file documented as of this encounter OR Notes * Anesthesia Postprocedure Evaluation - Mukesh Moralez MD - 10/11/2023 1:49 PM CDT Patient: Bárbara Fuller Procedure: Procedure(s): Repeat Section, bilateral Salpingectomy Anesthesia Type: Spinal Note: Disposition: Inpatient Postop Pain Control: Uneventful Sign Out: Well controlled pain PONV: No Neuro/Psych: Uneventful Sign Out: Acceptable/Baseline neuro status Airway/Respiratory: Uneventful Sign Out: Acceptable/Baseline resp. status CV/Hemodynamics: Uneventful Sign Out: Acceptable CV status Other NRE: NONE DID A NON-ROUTINE EVENT OCCUR? No Last vitals: Vitals Value Taken Time BP 95/51 10/11/23 1123 Temp 96.7 ??F (35.9 ??C) 10/11/23 1038 Pulse Resp 17 10/11/23 1053 SpO2 98 % 10/11/23 1123 Electronically Signed By: Mukesh Moralez MD October 11, 2023 1:49 PM * Anesthesia Procedure Notes - Angie Beach APRN [facility] - 10/11/2023 9:01 AM CDTAssociated Order(s): Spinal Block Intrathecal injection Procedure Note Pre-Procedure Staff - Anesthesiologist: Derrick Cottrell MD Performed By: anesthesiologist Pre-Anesthestic Checklist: patient identified, IV checked, risks and benefits discussed, informed consent, monitors and equipment checked, pre-op evaluation, at physician/surgeon's request and post-op pain management Timeout: Correct Patient: Yes Correct Procedure: Yes Correct Site: Yes Correct Position: Yes Procedure Documentation Procedure: intrathecal injection Patient Position: sitting Patient Prep/Sterile Barriers: sterile gloves, mask Skin prep: Betadine Insertion Site: L3-4. (midline approach). Needle Gauge: 24. Needle Length (Inches): 3.5 Spinal Needle Type: Pencan Introducer used Introducer: 20 G # of attempts: 3 and # of redirects: 3 Assessment/Narrative Paresthesias: No. CSF fluid: clear. Medication(s) Administered 0.75% Hyperbaric Bupivacaine (Intrathecal) - Intrathecal 1.8 mL - 10/11/2023 9:02:00 AM Morphine PF 1 mg/mL (Intrathecal) - Intrathecal 0.15 mg - 10/11/2023 9:02:00 AM FOR [facility] ([facility]) ONLY: Pain Team Contact information: please page the Pain Team Via [employer] Pain. During daytime hours, please page the attending first. At night please page the resident first. * Anesthesia Preprocedure Evaluation - Derrick Cottrell MD - 10/11/2023 8:02 AM CDT Anesthesia Pre-Procedure Evaluation Patient: Bárbara Fuller : 1985 Procedure : Procedure(s): Repeat Section, bilateral Salpingectomy Past Medical History: Diagnosis Date Hypertension during Past Surgical History: Procedure Laterality Date C/SECTION, CLASSICAL No Known Allergies Social History Tobacco Use Smoking status: Former Types: Cigarettes Smokeless tobacco: Not on file Substance Use Topics Alcohol use: Not Currently Wt Readings from Last 1 Encounters: 11/22/15 70.3 kg (155 lb) Anesthesia Evaluation Pt has had prior anesthetic. Type: Regional. ROS/MED HX ENT/Pulmonary: - neg pulmonary ROS Neurologic: - neg neurologic ROS Cardiovascular: (+) hypertension- - - - - METS/Exercise Tolerance: Hematologic: Comments: Lab Test 10/10/23 10/07/23 10/01/23 1239 1407 1121 WBC 14.1* 10.8 11.9* HGB 11.5* 11.2* 12.0 MCV 88 90 89 PLT 364 327 352 Lab Test 04/02/2110/01/23 03/16/22 1407 1121 1551 CR 0.61 0.63 0.67 - neg hematologic ROS Musculoskeletal: - neg musculoskeletal ROS GI/Hepatic: - neg GI/hepatic ROS Renal/Genitourinary: - neg Renal ROS Endo: - neg endo ROS Psychiatric/Substance Use: - neg psychiatric ROS Infectious Disease: - neg infectious disease ROS Malignancy: - neg malignancy ROS Other: (+) Possibly , , , Physical Exam Airway Mallampati: II TM distance: > 3 FB Neck ROM: full Mouth opening: > 3 cm Respiratory Devices and Support Dental (+) Minor Abnormalities - some fillings, tiny chips Cardiovascular cardiovascular exam normal Pulmonary pulmonary exam normal OUTSIDE LABS: CBC: Lab Results Component Value Date WBC 14.1 (H) 10/10/2023 WBC 10.8 10/07/2023 HGB 11.5 (L) 10/10/2023 HGB 11.2 (L) 10/07/2023 HCT 36.6 10/10/2023 HCT 34.6 (L) 10/07/2023 PLT 364 10/10/2023 PLT 327 10/07/2023 BMP: Lab Results Component Value Date CR 0.61 10/07/2023 CR 0.63 10/01/2023 COAGS: No results found for: PTT, INR, FIBR POC: Lab Results Component Value Date BGM 91 11/22/2015 HCG Negative 01/10/2005 HEPATIC: Lab Results Component Value Date ALT 11 10/07/2023 AST 18 10/07/2023 OTHER: No results found for: PH, LACT, A1C, DANNY, PHOS, MAG, LIPASE, AMYLASE, TSH,T4, T3, CRP, SED Anesthesia Plan ASA Status: 2 Anesthesia Type: Spinal. Induction: N/a. Maintenance: N/A. Consents Anesthesia Plan(s) and associated risks, benefits, and realistic alternatives discussed. Questions answered and patient/insurance account representative(s) expressed understanding. - Discussed: - Discussed with: Patient - Extended Intubation/Ventilatory Support Discussed: No. - Patient is DNR/DNI Status: No Use of blood products discussed: Yes. - Discussed with: Patient. - Consented: consented to blood products Postoperative Care Pain management: IV analgesics. PONV prophylaxis: Dexamethasone or Solumedrol, Ondansetron (or other 5HT-3) Comments: Derrick Cottrell MD I have reviewed the pertinent notes and labs in the chart from the past 30 days and (re)examined the patient. Any updates or changes from those notes are reflected in this note. # Drug Induced Platelet Defect: home medication list includes an antiplatelet medication documented in this encounter Miscellaneous Notes * Anesthesia Care Transfer Note - Angie Beach APRN CRNA - 10/11/2023 10:25 AM CDT Patient: Bárbara Fuller Procedure: Procedure(s): Repeat Section, bilateral Salpingectomy Diagnosis: Previous section [Z98.891] Sterilization [Z30.2] Diagnosis Additional Information: No value filed. Anesthesia Type: Spinal Note: Oropharynx: oropharynx clear of all foreign objects Level of Consciousness: awake Oxygen Supplementation: room air Independent Airway: airway patency satisfactory and stable Dentition: dentition unchanged Vital Signs Stable: post-procedure vital signs reviewed and stable Report to RN Given: handoff report given Patient transferred to: Labor and Delivery Handoff Report: Identifed the Patient, Identified the Reponsible Provider, Reviewed the pertinent medical history, Discussed the surgical course, Reviewed Intra-OP anesthesia mangement and issues during anesthesia, Set expectations for post-procedure period and Allowed opportunity for questions andacknowledgement of understanding Vitals: Vitals Value Taken Time BP 95/53 10/11/23 1023 Temp Pulse Resp SpO2 94 % 10/11/23 1022 Vitals shown include unfiled device data. Electronically Signed By: Angie Beach APRN CRNA October 11, 2023 10:25 AM documented in this encounter Plan of Treatment Not on file documented as of this encounter Procedures Procedure Name Priority Date/Time Associated Diagnosis Comments ANE SPINAL BLOCK FORM Routine 10/11/2023 9:01 AM CDT documented in this encounter Results * Spinal Block (10/11/2023 9:01 AM CDT) Narrative Angie Beach APRN CRNA - 10/11/2023 9:01 AM CDT Angie Beach APRN CRNA ? 10/11/2023 ??9:02 AM Intrathecal injection Procedure Note Pre-Procedure Staff - ? Anesthesiologist: ??Derrick Cottrell MD ? Performed By: anesthesiologist ? Pre-Anesthestic Checklist: patient identified, IV checked, risks and benefits discussed, informed consent, monitors and equipment checked, pre-op evaluation, at physician/surgeon's request and post-op pain management Timeout: ? Correct Patient: Yes ? Correct Procedure: Yes ? Correct Site: Yes ? Correct Position: Yes Procedure Documentation Procedure: intrathecal injection ? Patient Position: sitting ? Patient Prep/Sterile Barriers: sterile gloves, mask ? Skin prep: Betadine ? Insertion Site: L3-4. (midline approach). ? Needle Gauge: 24. ? Needle Length (Inches): 3.5 ? Spinal Needle Type: Pencan ? Introducer used ? Introducer: 20 G ? # of attempts: 3 and ??# of redirects: ??3 Assessment/Narrative ? Paresthesias: No. ? CSF fluid: clear. Medication(s) Administered 0.75% Hyperbaric Bupivacaine (Intrathecal) - Intrathecal 1.8 mL - 10/11/2023 9:02:00 AM Morphine PF 1 mg/mL (Intrathecal) - Intrathecal 0.15 mg - 10/11/2023 9:02:00 AM FOR [facility] ([facility]) ONLY: ?? Pain Team Contact information: please page the Pain Team Via [employer] Search Pain. During daytime hours, please page the attending first. At night please page the resident first. Derrick Cottrell MD [facility] documented in this encounter Visit Diagnoses Not on filedocumented in this encounter Administered Medications Inactive Administered Medications - up to 3 most recent administrations Medication Order MAR Action Action Date Dose Rate Site BUPivacaine 0.75% in dextrose 8.25% (intrathecal) (SENSORCAINE) 0.75-8.25 % injection Intrathecal, Starting on Sat10/11/23 at 0902, Anesthesia Intra-op $Given 10/11/2023 9:02 AM CDT 1.8 mLs ceFAZolin Sodium (ANCEF) injection 2 g Routine, 2 g, Intravenous, PRE-OP/PRE-PROCEDURE, Starting on Sat10/11/23 at 0756, For 1 dose, Give no sooner than 60 minutes prior to incision., Indications: Perioperative Pharmacoprophylaxis, Pre-procedure $Given 10/11/2023 8:54 AM CDT 2 g dexAMETHasone (DECADRON) injection Intravenous, PRN, Administer over 1 Minutes, Starting on Sat10/11/23 at 0908, Anesthesia Intra-op $Given 10/11/2023 9:08 AM CDT 4 mg ketorolac (TORADOL) injection Intravenous, PRN, Administer over 2 Minutes, Starting on Sat10/11/23 at 0956, Anesthesia Intra-op $Given 10/11/2023 9:56 AM CDT 30 mg lactated ringers infusion at 100 mL/hr, Intravenous, CONTINUOUS, Pre-operative maintenance fluid., Pre-procedure, Starting on Sat10/11/23 at 0800, Until Sat10/11/23 at 1058 $New Bag 10/11/2023 9:40 AM CDT Rate/Dose Change 10/11/2023 8:30 AM CDT 100 mL/ hr morphine (PF) (DURAMORPH) injection Intrathecal, Administer over 4-5 Minutes, Starting on Sat10/11/23 at 0902, Anesthesia Intra-op $Given 10/11/2023 9:02 AM CDT 0.15 mg ondansetron (ZOFRAN) injection Intravenous, PRN, Administer over 2-5 Minutes, Starting on Sat10/11/23 at 0857, Anesthesia Intra-op $Given 10/11/2023 8:57 AM CDT 4 mg oxytocin (PITOCIN) 30 units in 500 mL 0.9% NaCl infusion Intravenous, PRN, Starting on Sat10/11/23 at 0923, Anesthesia Intra-op $Given 10/11/2023 9:23 AM CDT 500 mLs phenylephrine (JESUS-SYNEPHRINE) injection Intravenous, CONTINUOUS PRN, Starting on Sat10/11/23 at 0904, Anesthesia Intra-op $Bolus 10/11/2023 9:05 AM CDT 200 mcg $New Bag 10/11/2023 9:04 AM CDT 100 mcg phenylephrine 0.1 mg/mL infusion (mcg/kg/min) Intravenous, CONTINUOUS PRN, Starting on Sat10/11/23 at 0904, Anesthesia Intra-op Rate/Dose Change 10/11/2023 9:37 AM CDT 0.1 mcg/kg/min 4.2 mL/hr Rate/Dose Change 10/11/2023 9:32 AM CDT 0.15 mcg/kg/min 6. 3 mL/hr Rate/Dose Change 10/11/2023 9:25 AM CDT 0.2 mcg/kg/min 8.4 mL/hr documented in this encounter Additional Health Concerns Infection Onset Date Last Indicated Resolved Time Rule Out COVID-19 10/11/2023 10/11/2023 10/11/2023 9:17 AM CDT documented as of this encounter Care Teams Machinist Job Setter Relationship Specialty Start Date End Date No Ref-Primary, Physician PCP - General 10/11/23 documented as of this encounter
--- OUTSIDE RECORDS SUMMARY | 2023-10-18 15:22 | XMS_ITS | Clinical Summary ---
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 Role Phone No Ref-Primary, Physician Primary Care Provider Allergies No known active allergies Medications Medication Sig Dispensed Refills Start Date End Date Status aspirin 81 MG EC tablet Take 81 mg by mouth daily Active magnesium oxide 400 MG CAPS Take 1 capsule by mouth daily Active Vit-Fe Fumarate-FA ( MULTIVITAMIN PLUS IRON) 27-1 MG TABS Take 1 tablet by mouth daily Active acetaminophen (TYLENOL) 325 MG tabletIndications:S /P section Take 3 tablets (975 mg) by mouth every 6 hours 10/13/2023 Active ibuprofen (ADVIL/MOTRIN) 800 MG tabletIndications:S /P section Take 1 tablet (800 mg) by mouth every 6 hours 10/13/2023 Active oxyCODONE (ROXICODONE) 5 MG tabletIndications:S /P section Take 1 tablet (5 mg) by mouth every 4 hours as needed 8 tablet 10/13/2023 Active Ferrous Sulfate (IRON PO) Take 1 tablet by mouth daily 10/04/2023 Discontinued (Med Rec(No AVS / No eCancel)) Active Problems Problem Noted Date Diagnosed Date Chronic hypertension affecting 024 S/P 10/11/2023 Encounters Date Type Department Care Team Description 10/13/2023 Encounter [facility] [address] [place] [address] 10/11/2023 9:00 AM CDT - 10/11/2023 10:30 AM CDT Surgery [facility] [address] [place] [address] Brittany Fenton MD Repeat Section, bilateral Salpingectomy 10/11/2023 8:54 AM CDT Anesthesia Event [facility] [address] [place] [address] Mukesh Moralez MD Allen, Brian J, MD 10/11/2023 7:05 AM CDT - 10/13/2023 12:13 PM CDT Hospital Encounter [facility] [address] [place] [address] Brittany Fenton MD S/P section (Primary Dx) Discharge Disposition: Home or Self Care 10/08/2023 1:30 PM CDT - 10/08/2023 11:59 PM CDT Hospital Encounter [facility] [id number] [place] [address] [address] [place] [address] Brittany Fenton MD Chest pain Discharge Disposition: Home or Self Care 10/08/2023 12:13 PM CDT - 10/08/2023 1:29 PM CDT Hospital Encounter [facility] [id number] [place] [address] [address] [place] [address] Brittany Fenton MD Chest pain Discharge Disposition: Home or Self Care 10/08/2023 Orders Only [address] [place] [address] Brittany Fenton MD Chest pain (Primary Dx) 10/08/2023 Orders Only [facility] [address] [place] [address] Brittany Fenton MD Chest pain (Primary Dx) 10/08/2023 Travel 10/07/2023 External Order Results [facility] [address] [place] [phone] Outside, Provider 10/04/2023 Travel 10/03/2023 Orders Only [facility] [address] [place] [phone] Brittany Fenton MD Pre-op exam (Primary Dx) from Last 3 Months Social History Tobacco Use Types Packs/Day Years Used Date Smoking Tobacco: Former Cigarettes Tobacco Cessation:Counseling Given: Not Answered Alcohol Use Standard Drinks/Week Comments Not Currently 0 (1 standard drink = 0.6 oz pur e alcohol) Thebes Depression Scale Answer Date Recorded Last EPDS Total Score Not on file 10/13/2023 The thought of harming myself has occurred to me . Never 10/13/2023 Adolescent Education Answer Date Record ed Getting School Help Needed Not on file 10/02 Sex and Gender Information Value Date Recorded Sex Assigned at Not on file Gender Identity Not on file Sexual Orientation Not on file Last Filed Vital Signs Vital Sign Reading Time Taken Comments Blood Pressure 138/79 10/13/2023 10:37 AM CDT Pulse 89 10/13/2023 10:37 AM CDT Temperature 36.6 ??C (97.8 ??F) 10/13/2023 1:14 AM CD T Respiratory Rate 18 10/13/2023 10:37 AM CDT Oxygen Saturation 98% 10/12/2023 12:25 AM CDT Inhaled Oxygen Concentration - - Weight 90.4 kg (199 lb 4.8 oz) 10/13/2023 11:00 AM CDT Height 162.6 cm (5' 4) 10/11/2023 10:38 AM CDT Body Mass Index 34.21 10/11/2023 10:38 AM CDT Plan of Treatment Health Maintenance Due Date Last Done Comments ADVANCE CARE PLANNING 1985 ANNUAL REVIEW OF HM ORDERS 1985 Pneumococcal Vaccine: Pediatrics (0 to 5 Years) and At-Risk Patients (6 to 64 Years) (1 of 2 - PCV) 1991 HEPATITIS C SCREENING 2003 GLUCOSE 11/21/2018 11/22/2015 YEARLY PREVENTIVE VISIT 02/15/2022 02/16/20, 03/11/2019, 02/17/2018, Additional history exists PAP 03/11/2022 03/11/2019 PHQ-2 (once per calendar year) 2023 DTAP/TDAP/TD IMMUNIZATION (11 - Td or Tdap) 08/15/2033 08/15/2023, 01/04/2022, 02/17/2018, Additional history exists IPV IMMUNIZATION Completed 02/10/1987, , 02/15/1986, Additional history exists HEPATITIS B IMMUNIZATION Completed 997, 10/22/1996, 10/13/1994, Additional history exists HIV SCREENING Completed 03/07/2023 COVID-19 Vaccine Completed 05/17/2023, 03/2022, 11/12/2020, Additional history exists INFLUENZA VACCINE Completed 05/17/2023 HPV IMMUNIZATION Aged Out No longer e ligible based on patient's age to complete this topic MENINGITIS IMMUNIZATION Aged Out No l onger eligible based on patient's age to complete this topic RSV MONOCLONAL ANTIBODY Aged Out No l onger eligible based on patient's age to complete this topic Procedures Procedure Name Priority Date/Time Associated Diagnosis Comments HEMOGLOBIN Routine 10/12/2023 6:46 AM CDT SURGICAL PATHOLOGY EXAM Routine 10/11/2023 9:33 AM CDT ANE SPINAL BLOCK FORM Routine 10/11/2023 9:01 AM CDT SECTION, WITH BILATERAL SALPINGECTOMY 10/11/2023 8:54 AM CDT Previous section Sterilization Special Needs 90min req INFLUENZA A/B, RSV, & SARS-COV2 PCR STAT 10/11/2023 8:25 AM CDT COVID-19 VIRUS (CORONAVIRUS) BY PCR STAT 10/11/2023 8:25 AM CDT ABO/RH TYPE AND SCREEN Routine 10/10/2023 12:39 PM CDT Encounter for other specified screening TYPE AND SCREEN, ADULT Routine 10/10/2023 12:39 PM CDT Encounter for other specified screening CBC WITH PLATELETS Routine 10/10/2023 12:39 PM CDT Encounter for other specified screening RAPID PLASMA REAGIN WITH REFLEX TO TITER AND TREPONEMA ANTIBODIES - OUTREACH ONLY Routine 10/10/2023 12:39 PM CDT Encounter for other specified screening EKG 12-LEAD, TRACING ONLY STAT 10/08/2023 1:44 PM CDT Chest pain ECHO COMPLETE STAT 10/08/2023 1:05 PM CDT Chest pain TROPONIN T, HIGH SENSITIVITY Routine 10/07/2023 3:27 PM CDT Other chest pain CBC WITH PLATELETS Routine 10/07/2023 2: 07 PM CDT Excessive weight gain in , third trimester CREATININE Routine 10/07/2023 2:07 PM CDT Excessive weight gain in , third trimester ALT Routine 10/07/2023 2:07 PM CDT Excessive weight gain in , third trimester AST Routine 10/07/2023 2:07 PM CDT Excessive weight gain in , third trimester EXTRA GREEN TOP TUBE (LAB USE ONLY) Routine 10/01/2023 11:21 AM CDT Pre-existing hypertensive heart disease complicating , third trimester (CODE) CREATININE Routine 10/01/2023 11:21 AM CDT Pre-existing hypertensive heart disease complicating , third trimester (CODE) CBC WITH PLATELETS Routine 10/01/2023 11:21 AM CDT Pre-existing hypertensive heart disease complicating , third trimester (CODE) AST Routine 10/01/2023 11:21 AM CDT Pre-existing hypertensive heart disease complicating , third trimester (CODE) ALT Routine 10/01/2023 11:21 AM CDT Pre-existing hypertensive heart disease complicating , third trimester (CODE) URIC ACID Routine 10/01/2023 11:21 AM CDT Pre-existing hypertensive heart disease complicating , third trimester (CODE) PROTEIN RANDOM URINE Routine 10/01/2023 11:20 AM CDT Pre-existing hypertensive heart disease complicating , third trimester (CODE) HIV 1&2 ANTIBODY (EXTERNAL RESULT) Routine 03/07/2023 12:16 PM CDT GROUP B STREP PCR Routine 03/01/2022 2:0 4 PM CDT Encounter for screening for Streptococcus B [ICD-10-CM] GLUCOSE BY METER Routine 11/22/2015 12:56 PM CDT from Last 3 Months or Most Recently Relevant to Health Maintenance Results * (ABNORMAL) Hemoglobin (10/12/2023 6:46 AM CDT) Hemoglobin 8.6(L) 11.7 - 15.7 g/dL 10/12/2023 7:36 AM CDT LABORATORY Blood STRUCTURE OF LEFT UPPER LIMB / Unknown Venipuncture / Unknown 10/12/2023 6:46 AM CDT 10/12/2023 7:34 AM CDT Brittany Fenton MD LAB - BLOOD ORDERA BLES LABORATORY [facility] [address] [facility] (1st floor, no room number) [place] [address], [facility] * Surgical Pathology Exam (10/11/2023 9:33 AM CDT) Case Report Surgical Pathology Report ? Case: [id number] ? Authorizing Provider: ??Brittany Fenton MD ?Collected: ? 10/11/2023 09:33 AM ? Ordering Location: ? [facility] ?? Received: ?10/11/2023 09:54 AM ? [facility] ? Pathologist: ? Rosa Alonzo MD ? Specimen: ?Fallopian Tube, Bilateral ? 10/14/2023 1:46 PM CDT LABORATORY Final Diagnosis A. Bilateral fallopian tubes, bilateral salpingectomy: -Complete cross section of both fallopian tubes identified. -Fimbriated ends of both fallopian tubes without histopathologic abnormality. -Benign paratubal cysts. 10/14/2023 1:46 PM CDT LABORATORY Clinical Information pt desires permanent sterilization 10/14/2023 1:46 PM CDT LABORATORY Gross Description A(A). Fallopian Tube, Bilateral, : The specimen is received in formalin, labeled with the patient's name, medical record number and other identifying information designated bilateral fallopian tubes. It consists of bilateral unoriented fallopian tubes. The first, 8.5 x 0.8 cm purple-pink, fimbriated fallopian tube is entirely inked black, sectioned and displays a stellate lumen. The second, 8.3 x 1.0 cm purple-pink, fimbriated fallopian tube has two, 0.1 cm paratubal cysts, is sectioned and displays a stellate lumen. Janitor sections of the specimen are submitted as follows: A1-first described unoriented fallopian tube (inked black-fimbriated end submitted entirely) [id number] described unoriented fallopian tube to include paratubal cysts (paratubal cysts and fimbriated end submitted entirely) (ROBERT Smith (ASCP) 10/14/2023 1:46 PM CDT LABORATORY Microscopic Description Microscopic examination was performed. Results are incorporated into the final diagnosis. All controls stained appropriately. 10/14/2023 1:46 PM CDT LABORATORY Performing Labs The technical component of this testing was completed at [facility] 10/14/2023 1:46 PM CDT LABORATORY Case Images 10/14/2023 1:46 PM CDT LABORATORY Tissue BOTH FALLOPIAN TUBES / Unknown Non-blood Collection / Unknown 10/11/2023 9:33 AM CDT 10/11/2023 9:54 AM CDT Brittany CLAUDIO - [facility] [address] 1st floor, [address] [place] [address], [facility] [address] [facility] (1st floor, no room number) [place] [address], [facility] * Spinal Block (10/11/2023 9:01 AM CDT) Narrative Angie Beach APRN SUGAR CONTROLLER - 10/11/2023 9:01 AM CDT Angie Beach APRN SUGAR CONTROLLER ? 10/11/2023 ??9:02 AM Intrathecal injection Procedure [...] 0.15 mg - 10/11/2023 9:02:00 AM FOR [facility] ([facility] ONLY: ?? Pain Team Contact information: please page the Pain Team Via [employer]. Search Pain. During daytime hours, please page the attending first. At night please page the resident first. Derrick Cottrell MD MS ANESTHESIA * Symptomatic COVID-19 Virus (Coronavirus) by PCR Nasopharyngeal (10/11/2023 8:25 AM CDT) SARS CoV2 PCR Negative Negative 10/11/2023 9:17 AM CDT LABORATORY Comment:NEGATIVE: SARS-CoV-2 (COVID-19) RNA not detected, presumed negative. Swab NASOPHARYNGEAL STRUCTURE / Unknown Non-blood Collection / Unknown 10/11/2023 8:25 AM CDT 10/11/2023 8:34 AM CDT Narrative LABORATORY - 10/11/2023 9:17 AM CDT Testing was performed using the Xpert Xpress SARS-CoV-2 Assay on the [employer]. Additional information about this Emergency Use Authorization (EUA) assay can be found via the Lab Guide. This test should be ordered for the detection of SARS-CoV-2 in individuals who meet SARS-CoV-2 clinical and/or epidemiological criteria as well as from individuals without symptoms or other reasons to suspect COVID-19. Test performance for asymptomatic patients has only been established in anterior nasal swab specimens. This test is for in vitro diagnostic use under the FDA EUA for laboratories certified under CLIA to perform high complexity testing. This test has not been FDA cleared or approved. A negative result does not rule out the presence of PCR inhibitors in the specimen or target RNA concentration below the limit of detection for the assay. The possibility of a false negative should be considered if the patient's recent exposure or clinical presentation suggests COVID-19. This test was validated by the [facility]. This laboratory is certified under the Clinical Laboratory Improvement Amendments (CLIA) as qualified to perform high complexity laboratory testing. Brittany Fenton MD LAB - MICRO GENERA L ORDERABLES [facility] [address] [facility] (1st floor, no room number) [place] [address], [facility] * Symptomatic Influenza A/B, RSV, & SARS-CoV2 PCR (COVID-19) Nasopharyngeal (10/11/2023 8:25 AM CDT) Influenza A PCR Negative Negative 10/11/2023 9:17 AM CDT LABORATORY Influenza B PCR Negative Negative 10/11/2023 9:17 AM CDT LABORATORY RSV PCR Negative Negative 10/11/2023 9:17 AM CDT LABORATORY SARS CoV2 PCR Negative Negative 10/11/2023 9:17 AM CDT LABORATORY Comment:NEGATIVE: SARS-CoV-2 (COVID-19) RNA not detected, presumed negative. Swab NASOPHARYNGEAL STRUCTURE / Unknown Non-blood Collection / Unknown 10/11/2023 8:25 AM CDT 10/11/2023 8:34 AM CDT [facility] LABORATORY - 10/11/2023 9:17 AM CDT Testing was performed using the Xpert Xpress CoV2/Flu/RSV Assay on the [employer] Instrument. This test should be ordered for the detection of SARS-CoV-2, influenza, and RSV viruses in individuals who meet clinical and/or epidemiological criteria. Test performance is unknown in asymptomatic patients. This test is for in vitro diagnostic use under the FDA EUA for laboratories certified under CLIA to perform high or moderate complexity testing. This test has not been FDA cleared or approved. A negative result does not rule out the presence of PCR inhibitors in the specimen or target RNA in concentration below the limit of detection for the assay. If only one viral target is positive but coinfection with multiple targets is suspected, the sample should be re-tested with another FDA cleared, approved, or authorized test, if coinfection would change clinical management. This test was validated by the [facility]. These laboratories are certified under the Clinical Laboratory Improvement Amendments of 1988 (CLIA-88) as qualified to perform high complexity laboratory testing. Brittany Fenton MD LAB - MICRO GENERA L ORDERABLES [facility] [address] [facility] (1st floor, no room number) [place] [address] * Adult Type and Screen (10/10/2023 12:39 PM CDT) ABO/RH(D) O POS 10/10/2023 11:24 PM CDT [facility] B[facility]OD BANK Antibody Screen Negative Negative 10/10/2023 11:24 PM CDT [facility] BLO[facility] BANK SPECIMEN EXPIRATION DATE [id number] 10/10/2023 11:24 PM CDT [facility] BLOOD B[facility] Blood BLOOD SPECIMEN / Unknown Client Draw / Unknown 10/10/2023 12:39 PM CDT 10/10/2023 2:35 PM CDT Shanta Denis MD LAB - BLOOD BANK TE ST ORDER [facility] [address] [place] [address] * Rapid Plasma Reagin with Reflex to Titer and Treponema Antibodies (10/10/2023 12:39 PM CDT) [facility] Rapid Plasma Reagin Nonreactive Nonreactive 10/11/2023 10:28 AM CDT SPECIALTY CORE/PROT/EN DO Blood BLOOD SPECIMEN / Unknown Client Draw / Unknown 10/10/2023 12:39 PM CDT 10/10/2023 2:35 PM CDT Narrative SPECIALTY CORE/PROT/ENDO - 10/11/2023 10:28 AM CDT Biological false-positive reactions with cardiolipin-type antigens have been reported in disease such as infectious mononucleosis, leprosy, malaria, lupus erythematosus, vaccinia, and viral pneumonia. ??, autoimmune diseases, and narcotic additions may give false-positives. Pinta, yaws, bejel, and other treponemal diseases may also produce false-positive results with this test. Shanta Denis MD LAB - BLOOD ORDERAB LES SPECIALTY CORE/PROT/ENDO Specialty Core/Prot/Endo [address] [facility], Room [address] * (ABNORMAL) CBC with platelets (10/10/2023 12:39 PM CDT) Only the most recent of3 resultswithin the time period is included. [facility] WBC Count 14.1(H) 4.0 - 11.0 10e3/uL 10/10/2023 3:04 PM CDT [facility] LABORATORY RBC Count 4.17 3.80 - 5.20 10e6/uL 10/10/2023 3:04 PM CDT [facility] LAB[facility]ATORY Hemoglobin 11.5(L) 11.7 - 15.7 g/dL 10/10/2023 3:04 PM CDT [facility] LAB[facility] Hematocrit 36.6 35.0 - 47.0 % 10/10/2023 3:04 PM CDT [facility] MCV 88 78 - 100 fL 10/10/2023 3:04 PM CDT [facility] MCH 27.6 26.5 - 33.0 pg 10/10/2023 3:04 PM CDT [facility] MCHC 31.4(L) 31.5 - 36.5 g/dL 10/10/2023 3:04 PM CDT [facility] RDW 13.2 10.0 - 15.0 % 10/10/2023 3:04 PM CDT [facility] Platelet Count 364 150 - 450 10e3/uL 10/10/2023 3:04 PM CDT [facility] LAB[facility]ATORY Blood BLOOD SPECIMEN / Unknown Client Draw / Unknown 10/10/2023 12:39 PM CDT 10/10/2023 2:35 PM CDT Shanta Denis MD LAB - BLOOD ORDERAB LES [facility] LABORATORY [facility] [place] [facility] [address] [facility], Room [address] [id number] * EKG 12-lead, tracing only (10/08/2023 1:44 PM CDT) Systolic Blood Pressure mmHg RADIOLOGY RESULTS Diastolic Blood Pressure mmHg RADIOLOGY RESULTS Ventricular Rate 75 BPM RAD IOLOGY RESULTS Atrial Rate 75 BPM RADIOLOG Y RESULTS MS Interval 138 ms RADIOLOG Y RESULTS QRS Duration 80 ms RADIOLO GY RESULTS QT 388 ms RADIOLOGY RESULTS QTc 433 ms RADIOLOGY RESULTS P [place] 35 degrees RADIOLOGY RESULTS R AXIS 21 degrees RADIOLOGY RESULTS T [place] 8 degrees RADIOLOGY RESULTS Interpretation ECG Sinus rhythm Normal ECG Confirmed by MD YOLY, NOELLE ([id number]) on 10/11/2023 4:21:24 PM RADIOLOGY RESULTS 10/08/2023 1:44 PM CDT 10/11/2023 4:21 PM CDT Brittany Fenton MD ECG ORDERABLES RADIOLOGY RESULTS * ECHO COMPLETE (10/08/2023 1:05 PM CDT) LVEF 55-60% CARDIOLOGY RESULTS Anatomical Region Laterality Modality Echocardiography 10/08/2023 12:2 7 PM CDT Narrative 10/08/2023 1:40 PM T [id number]^ELICEO^BRITTANY^[facility] [address] [place] [address] Name: BÁRBARA PEREZ : 1985 Study Date: 10/08/2023 12:27 PM Age: 38 yrs Gender: Female Patient Location: [facility] Reason For Study: Chest pain Ordering Physician: BRITTANY FENTON Referring Physician: BRITTANY FENTON Performed By: Srini Laura RDCS BSA: 1.8 m2 Height: 64 in Weight: 155 lb HR: 77 BP: 124/67 mmHg Procedure Complete Echo Adult. Interpretation Summary The visual ejection fraction is 55-60%. Left ventricular systolic function is normal. There is mild to moderate (1-2+) tricuspid regurgitation. Left Ventricle The left ventricle is normal in size. There is normal left ventricular wall thickness. Diastolic Doppler findings (E/E' ratio and/or other parameters) suggest left ventricular filling pressures are normal. Left ventricular systolic function is normal. The visual ejection fraction is 55-60%. Right Ventricle The right ventricle is normal in size and function. Atria Normal left atrial size. Right atrial size is normal. There is no color Doppler evidence of an atrial shunt. Mitral Valve There is trace mitral regurgitation. Tricuspid Valve There is mild to moderate (1-2+) tricuspid regurgitation. Aortic Valve The aortic valve is not well visualized. No aortic regurgitation is present. No hemodynamically significant valvular aortic stenosis. Pulmonic Valve There is trace pulmonic valvular regurgitation. Normal pulmonic valve velocity. Vessels The aortic root is normal size. IVC diameter <2.1 cm collapsing >50% with sniff suggests a normal RA pressure of 3 mmHg. Pericardium There is no pericardial effusion. Rhythm Sinus rhythm was noted. MMode/2D Measurements & Calculations IVSd: 1.0 cm LVIDd: 4.4 cm LVPWd: 0.77 cm IVC diam: 1.2 cm LV mass(C)d: 127.5 grams LV mass(C)dI: 72.6 grams/m2 Ao root diam: 2.5 cm LVOT diam: 1.8 cm LVOT area: 2.6 cm2 Ao root diam index Ht(cm/m): 1.5 Ao root diam index BSA (cm/m2): 1.4 LA Volume (BP): 36.9 ml LA Volume Index (BP): 21.0 ml/m2 RWT: 0.34 TAPSE: 2.1 cm Time Measurements Aortic HR: 87.0 BPM Doppler Measurements & Calculations MV E max selwyn: 84.4 cm/sec MV A max selwyn: 78.6 cm/sec MV E/A: 1.1 MV max P.4 mmHg MV mean P.4 mmHg MV V2 VTI: 28.2 cm MVA(VTI): 2.0 cm2 MV dec time: 0.21 sec LV V1 max P.2 mmHg LV V1 max: 114.0 cm/sec LV V1 VTI: 21.9 cm CO(LVOT): 5.0 l/min CI(LVOT): 2.8 l/min/m2 SV(LVOT): 56.9 ml SI(LVOT): 32.4 ml/m2 TR max selwyn: 251.9 cm/sec TR max P.4 mmHg E/E' av.1 Lateral E/e': 4.0 Medial E/e': 8.2 RV S Selwyn: 14.0 cm/sec Report approved by: Lizbeth Nieves 10/08/2023 01:40 PM Procedure Note Shakeel Burrows MD - 10/08/2023 [id number]^ELICEO^BRITTANY^[facility] [address] [place] [address] Name: BÁRBARA PEREZ : 1985 Study Date: 10/08/2023 12:27 PM Age: 38 yrs Gender: Female Patient Location: [facility] Reason For Study: Chest pain Ordering Physician: BRITTANY FENTON Referring Physician: BRITTANY FENTON Performed By: Srini Laura RDCS BSA: 1.8 m2 Height: 64 in Weight: 155 lb HR: 77 BP: 124/67 mmHg Procedure Complete Echo Adult. Interpretation Summary The visual ejection fraction is 55-60%. Left ventricular systolic function is normal. There is mild to moderate (1-2+) tricuspid regurgitation. Left Ventricle The left ventricle is normal in size. There is normal left ventricularwall thickness. Diastolic Doppler findings (E/E' ratio and/or otherparameters) suggest left ventricular filling pressures are normal. Left ventricular systolic function is normal. The visual ejection fraction is 55-60%. Right Ventricle The right ventricle is normal in size and function. Atria Normal left atrial size. Right atrial size is normal. There is no color Doppler evidence of an atrial shunt. Mitral Valve There is trace mitral regurgitation. Tricuspid Valve There is mild to moderate (1-2+) tricuspid regurgitation. Aortic Valve The aortic valve is not well visualized. No aortic regurgitation ispresent. No hemodynamically significant valvular aortic stenosis. Pulmonic Valve There is trace pulmonic valvular regurgitation. Normal pulmonic valve velocity. Vessels The aortic root is normal size. IVC diameter <2.1 cm collapsing >50%with sniff suggests a normal RA pressure of 3 mmHg. Pericardium There is no pericardial effusion. Rhythm Sinus rhythm was noted. MMode/2D Measurements & Calculations IVSd: 1.0 cm LVIDd: 4.4 cm LVPWd: 0.77 cm IVC diam: 1.2 cm LV mass(C)d: 127.5 grams LV mass(C)dI: 72.6 grams/m2 Ao root diam: 2.5 cm LVOT diam: 1.8 cm LVOT area: 2.6 cm2 Ao root diam index Ht(cm/m): 1.5 Ao root diam index BSA (cm/m2): 1.4 LA Volume (BP): 36.9 ml LA Volume Index (BP): 21.0 ml/m2 RWT: 0.34 TAPSE: 2.1 cm Time Measurements Aortic HR: 87.0 BPM Doppler Measurements & Calculations MV E max selwyn: 84.4 cm/sec MV A max selwyn: 78.6 cm/sec MV E/A: 1.1 MV max P.4 mmHg MV mean P.4 mmHg MV V2 VTI: 28.2 cm MVA(VTI): 2.0 cm2 MV dec time: 0.21 sec LV V1 max P.2 mmHg LV V1 max: 114.0 cm/sec LV V1 VTI: 21.9 cm CO(LVOT): 5.0 l/min CI(LVOT): 2.8 l/min/m2 SV(LVOT): 56.9 ml SI(LVOT): 32.4 ml/m2 TR max selwyn: 251.9 cm/sec TR max P.4 mmHg E/E' av.1 Lateral E/e': 4.0 Medial E/e': 8.2 RV S Selwyn: 14.0 cm/sec Report approved by: Lizbeth Nieves 10/08/2023 01:40 PM Brittany Fenton MD CV ECHO ORDERABLES * Troponin T, High Sensitivity (10/07/2023 3:27 PM CDT) Troponin T, High Sensitivity <6 <=14 ng/L 10/07/2023 4:13 PM CDT [facility] Comment: Either a High Sensitivity Troponin T baseline (0 hours) value = 100 ng/L, or an increase in High Sensitivity Troponin T = 7 ng/L at 2 hours compared to 0 hours (2-0 hours), suggests myocardial injury, and urgent clinical attention is required. ?? If the 2-0 hours increase is <7 ng/L, a High Sensitivity Troponin T result above gender-specific reference ranges warrants further evaluation. Recommendations for further evaluation include correlation with clinical decision-making tool (e.g., HEART), a 3rd High Sensitivity Troponin T test 2 hours after the 2nd (a 20% change from baseline would represent concern), admission for observation, close PCC/cardiology follow-up, or urgent outpatient provocative testing. Blood BLOOD SPECIMEN / Unknown Client Draw / Unknown 10/07/2023 3:27 PM CDT 10/07/2023 3:29 PM CDT Brittany Fenton MD LAB - BLOOD ORDERA BLES Performing Organization Address City/[facility]/ZIP Co de Phone Number U [facility] [place] [facility] [address] [facility], [address] [id number] * Creatinine (10/07/2023 2:07 PM CDT) Only the most recent of2 resultswithin the time period is included. Creatinine 0.61 0.51 - 0.95 mg/dL 10/07/2023 4:17 PM CDT [facility] GFR Estimate >90 >60 mL/min/1.73 m2 10/07/2023 4:17 PM CDT [facility] Blood BLOOD SPECIMEN / Unknown Client Draw / Unknown 10/07/2023 2:07 PM CDT 10/07/2023 3:46 PM CDT Brittany Fenton MD LAB - BLOOD ORDERA BLES [facility] [place] [facility] [address] [facility], [address] [id number] * AST (10/07/2023 2:07 PM CDT) Only the most recent of2 resultswithin the time period is included. AST 18 0 - 45 U/L 10/07/2023 4:1 7 PM CDT U LABORATORY Blood BLOOD SPECIMEN / Unknown Client Draw / Unknown 10/07/2023 2:07 PM CDT 10/07/2023 3:46 PM CDT Brittany Fenton MD LAB - BLOOD ORDERA BLES [facility]ATORY [facility] [place] [facility] [address] [facility], [address] * ALT (10/07/2023 2:07 PM CDT) Only the most recent of2 resultswithin the time period is included. ALT 11 0 - 50 U/L 10/07/2023 4:1 7 PM CDT LABORATORY Blood BLOOD SPECIMEN / Unknown Client Draw / Unknown 10/07/2023 2:07 PM CDT 10/07/2023 3:46 PM CDT Brittany Fenton MD LAB - BLOOD ORDERA BLES [facility]AT[facility] [place] [facility] [address] [facility], [address] [id number] * Extra Green Top Tube (LAB USE ONLY) (10/01/2023 11:21 AM CDT) Hold Specimen JIC 10/01/2023 4:08 PM CDT LABORATORY Blood BLOOD SPECIMEN / Unknown Client Draw / Unknown 10/01/2023 11:21 AM CDT 10/01/2023 3:03 PM CDT Hanna JALLOH LAB - BLOOD ORDE TIFFANIE LABORATORY [facility] [place] [facility] [address] [facility] [address], [address] [id number] * Uric acid (10/01/2023 11:21 AM CDT) Uric Acid 4.2 2.4 - 5.7 mg/dL 10/01/2023 6:53 PM CDT [facility] Blood BLOOD SPECIMEN / Unknown Client Draw / Unknown 10/01/2023 11:21 AM CDT 10/01/2023 3:03 PM CDT Hanna Jerome APRN [facility] LAB - BLOOD ORDE TIFFANIE [facility] [place] [facility] [address] [facility], [address] * Protein random urine (10/01/2023 11:20 AM CDT) Total Protein Urine mg/dL 6.4 mg/dL 10/01/2023 3:38 PM CDT [facility] Comment:The reference ranges have not been established in urine protein. The results should be integrated into the clinical context for interpretation. Total Protein Urine mg/mg Creat 0.17 0.00 - 0.20 mg/mg Cr 10/01/2023 3:38 PM CDT [facility] Creatinine Urine mg/dL 36.7 mg/dL 10/01/2023 3:38 PM CDT [facility] Comment:The reference ranges have not been established in urine creatinine. The results should be integrated into the clinical context for interpretation. Urine MID-STREAM URINE SPECIMEN / Unknown Non-blood Collection / Unknown 10/01/2023 11:20 AM CDT 10/01/2023 3:02 PM CDT Hanna Jerome APRN [facility] LAB - URINE ORDE IVAALEXSANDRA [facility] [place] [facility] [address] [facility], [address] [phone] * HIV-1 Antibody (External Result) (03/07/2023 12:16 PM CDT) HIV 1&2 Antibody (External) Negative Nonreactive EXTERNAL LAB 03/07/2023 12:1 6 PM CDT Patient Reported LAB - HIM EXTERNAL R ESULT EXTERNAL LAB External Lab * (ABNORMAL) Group B strep PCR (03/01/2022 2:04 PM CDT) Pathologist [facility] Group B Strep PCR Positive( A) Negative 03/03/2022 12:07 AM CDT [facility] Comment:ALERT: Streptococcus agalactiae (Group B Streptococcus) has a high rate of resistance to clindamycin. Therefore, clindamycin is not recommended for treatment unless susceptibility testing has been performed. Swab STRUCTURE OF RECTOVAGINAL SEPTUM / Unknown Non-blood Collection / Unknown 03/01/2022 2:04 PM CDT 03/01/2022 9:17 PM CDT Narrative [facility] - 03/03/2022 12:07 AM CDT The [employer] L[employer]creen[employer] Xpert GBS LB Assay, performed on the [employer], is a qualitative in vitro diagnostic test designed to detect Group B Streptococcus (GBS) DNA from enriched vaginal/rectal swab specimens, using fully automated, real- time polymerase chain reaction (PCR) with fluorogenic detection of the amplified DNA. Xpert GBS LB Assay testing is indicated as an aid in determining GBS colonization status in antepartum women. This assay does not diagnose or monitor treatment for GBS infections. The [employer] Xpert GBS LB Assay is intended for use in hospital, reference or state laboratory settings. The device is not intended for ojuwa-[id number] use. Ruthie Spangler DO LAB - MICRO GE NERAL ORDERABLES [facility] Lab [address] [facility], [address] [place] [address], [facility] [phone] * Glucose by meter (11/22/2015 12:56 PM CDT) Glucose 91 70 - 99 mg/dL POINT OF CARE TEST, GLUCOSE 11/22/2015 12:5 6 PM CDT 11/22/2015 1:00 PM CDT Provider Unknown LAB - BEAKER POCT POINT OF CARE TEST, GLUCOSE from Last 3 Months or Most Recently Relevant to Health Maintenance Advance Directives For more information, please contact: [phone] * Full Code (Latest Code Status on File) Date Activated Date Inactivated Comments 10/11/2023 11:20 AM 10/13/2023 2:14 PM All basic a nd advanced life-sustaining interventions are performed as appropriate Question Answer Comments Code status determined by: Discussion with cathye nt/ legal decision maker Care Teams Spinning Supervisor Relationship Specialty Start Date End Date No Ref-Primary, Physician PCP - General 10/11/23
--- OUTSIDE RECORDS SUMMARY | 2023-10-18 15:22 | XMS_ITS | Encounter Summary ---
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 Diagnoses Previous section Sterilization Previous section [Z98.891] Sterilization [Z30.2] Procedures NH LIGATION,FALLOPIAN TUBE W/ NH REMOVAL OF FALLOPIAN TUBE NH W/ASSIST SPLIT NH DELIVERY ONLY NH DELIVERY+ CARE Repeat Section, bilateral Salpingectomy [facility] Labor [facility] Delivery [address] [place] [address] Referral ID Status Reason Start Date Expiration Date Visits Re quested Visits Authorized [id number] 1 1 Encounter Details Date Type Department Care Team (Latest Contact Info) Description 10/11/2023 7:05 AM CDT - 10/13/2023 12:13 PM CDT Hospital Encounter [facility] [address] [place] [id number] Brittany Cotto MD [address] [place] [phone] S/P section (Primary Dx) Discharge Disposition: Home or Self Care Social History Tobacco Use Types Packs/Day Years Used Date Smoking Tobacco: Former Cigarettes Tobacco Cessation:Counseling Given: Not Answered Alcohol Use Standard Drinks/Week Comments Not Currently 0 (1 standard drink = 0.6 oz pur e alcohol) [place] Depression Scale Answer Date Recorded Last EPDS [...] Mass Index 34.21 10/11/2023 10:38 AM CDT documented in this encounter Discharge Instructions * Discharge Instructions* Kate Acosta RN - 10/13/2023 9:18 AM CDT Images from the original note were not included. Warning Signs after Having a Baby Keep this paper on your fridge or somewhere else where you can see it. Call your provider if you have any of these symptoms up to 12 weeks after having your baby. Thoughts of hurting yourself or your baby Pain in your chest or trouble breathing Severe headache not helped by pain medicine Eyesight concerns (blurry vision, seeing spots or flashes of light, other changes to eyesight) Fainting, shaking or other signs of a seizure Call if you feel that it is an emergency. The symptoms below can happen to anyone after giving . They can be very serious. Call your provider if you have any of these warning signs. My provider???s phone number: Losing too much blood (hemorrhage) Call your provider if you soak through a pad in less than an hour or pass blood clots bigger than agolf ball. These may be signs that you are bleeding too much. Blood clots in the legs or lungs After you give , your body naturally clots its blood to help prevent blood loss. Sometimes this increased clotting can happen in other areas of the body, like the legs or lungs. This can block your blood flow and be very dangerous. Call your provider if you: Have a red, swollen spot on the back of your leg that is warm or painful when you touch it. Are coughing up blood. Infection Call your provider if you have any of these symptoms: Fever of 100.4 F (38 C) or higher. Pain or redness around your stitches if you had an incision. Any yellow, white, or green fluid coming from places where you had stitches or surgery. Mood Problems ( depression) Many people feel sad or have mood changes after having a baby. But for some people, these mood swings are worse. Call your provider right away if you feel so anxious or nervous that you can't care for yourself oryour baby. Preeclampsia (high blood pressure) Even if you didn't have high blood pressure when you were , you are at risk for the high blood pressure disease called preeclampsia. This risk can last up to 12 weeks after giving . Call your provider if you have: Pain on your right side under your rib cage Sudden swelling in the hands and face Remember: You know your body. If something doesn't feel right, get medical help. For informational purposes only. Not to replace the advice of your health care provider. Copyright 2020 [facility] [employer]. All rights reserved. Clinically reviewed by Maddy Vickers, SAHARAC-OB, MSN. [employer] [id number] - Rev 08/23. Section: What to Expect at Home Your Recovery A section, or , is surgery to deliver your baby through a cut that the doctor makes in your lower belly and uterus. The cut is called an incision. You may have some pain in your lower belly and need pain medicine for 1 to 2 weeks. You can expect some vaginal bleeding for several weeks. You will probably need about 6 weeks to fully recover. It's important to take it easy while the incision heals. Avoid heavy lifting, strenuous activities,and exercises that strain the belly muscles while you recover. Ask a family member or friend for help with housework, cooking, and shopping. This care sheet gives you a general idea about how long it will take for you to recover. But each person recovers at a different pace. Follow the steps below to get better as quickly as possible. How can you care for yourself at home? Activity Rest when you feel tired. Getting enough sleep will help you recover. Try to walk each day. Start by walking a little more than you did the day before. Bit by bit, increase the amount you walk. Walking boosts blood flow and helps prevent pneumonia, constipation, and blood clots. Avoid strenuous activities, such as bicycle riding, jogging, weightlifting, and aerobic exercise, for 6 weeks or until your doctor says it is okay. Until your doctor says it is okay, do not lift anything heavier than your baby. Do not do sit-ups or other exercises that strain the belly muscles for 6 weeks or until your doctorsays it is okay. Hold a pillow over your incision when you cough or take deep breaths. This will support your belly and decrease your pain. You may shower as usual. Pat the incision dry when you are done. You will have some vaginal bleeding. Wear sanitary pads. Do not douche or use tampons until your doctor says it is okay. Ask your doctor when you can drive again. You will probably need to take at least 6 weeks off work. It depends on the type of work you do andhow you feel. Ask your doctor when it is okay for you to have sex. Diet You can eat your normal diet. If your stomach is upset, try bland, low-fat foods like plain rice, broiled chicken, toast, and yogurt. Drink plenty of fluids (unless your doctor tells you not to). You may notice that your bowel movements are not regular right after your surgery. This is common. Try to avoid constipation and straining with bowel movements. You may want to take a fiber supplement every day. If you have not had a bowel movement after a couple of days, ask your doctor about taking a mild laxative. If you are , limit alcohol. Alcohol can cause a lack of energy and other health problems for the baby when a woman drinks heavily. It can also get in the way of a mom's ability to feed her baby or to care for the child in other ways. There isn't a lot of research about exactly how much alcohol can harm a baby. Having no alcohol is the safest choice for your baby. If youchoose to have a drink now and then, have only one drink, and limit the number of occasions that you have a drink. Wait to breastfeed at least 2 hours after you have a drink to reduce the amount of alcohol the baby may get in the milk. Medicines Your doctor will tell you if and when you can restart your medicines. You will also get instructions about taking any new medicines. If you stopped taking aspirin or some other blood thinner, your doctor will tell you when to start taking it again. Take pain medicines exactly as directed. If the doctor gave you a prescription medicine for pain, take it as prescribed. If you are not taking a prescription pain medicine, ask your doctor if you can take an lzeb-diu-ekocult medicine. If you think your pain medicine is making you sick to your stomach: Take your medicine after meals (unless your doctor has told you not to). Ask your doctor for a different pain medicine. If your doctor prescribed antibiotics, take them as directed. Do not stop taking them just because you feel better. You need to take the full course of antibiotics. Incision care If you have strips of tape on the incision, leave the tape on for a week or until it falls off. Wash the area daily with warm, soapy water, and pat it dry. Don't use hydrogen peroxide or alcohol,which can slow healing. You may cover the area with a gauze bandage if it weeps or rubs against clothing. Change the bandage every day. Keep the area clean and dry. Other instructions If you breastfeed your baby, you may be more comfortable while you are healing if you don't rest your baby on your belly. Try tucking your baby under your arm, with your baby's body along the side you will be feeding on. Support your baby's upper body with your arm. With that hand you can control your baby's head to bring your baby's mouth to your breast. This is sometimes called the football hold. Follow-up care is a damon part of your treatment and safety. Be sure to make and go to all appointments, and call your doctor if you are having problems. It's also a good idea to know your test resultsand keep a list of the medicines you take. When should you call for help? Share this information with your partner, family, or a friend. They can help you watch for warning signs. Call 911 anytime you think you may need emergency care. For example, call if: You feel you cannot stop from hurting yourself, your baby, or someone else. You passed out (lost consciousness). You have chest pain, are short of breath, or cough up blood. You have a seizure. Where to get help 24 hours a day, 7 days a week If you or someone you know talks about suicide, self-harm, a mental health crisis, a substance use crisis, or any other kind of emotional distress, get help right away. You can: Call the Suicide and Crisis Lifeline at 988. Call 5-910-753-WLQE ( ). Text HOME to 516207 to access the Crisis Text Line. Consider saving these numbers in your phone. Go to [employer] for more information or to chat online. Call your doctor or wrong address clerk now or seek immediate medical care if: You have loose stitches, or your incision comes open. You have signs of hemorrhage (too much bleeding), such as: Heavy vaginal bleeding. This means that you are soaking through one or more pads in an hour. Or youpass blood clots bigger than an egg. Feeling dizzy or lightheaded, or you feel like you may faint. Feeling so tired or weak that you cannot do your usual activities. A fast or irregular heartbeat. New or worse belly pain. You have symptoms of infection, such as: Increased pain, swelling, warmth, or redness. Red streaks leading from the incision. Pus draining from the incision. A fever. Frequent or painful urination or blood in your urine. Vaginal discharge that smells bad. New or worse belly pain. You have symptoms of a blood clot in your leg (called a deep vein thrombosis), such as: Pain in the calf, back of the knee, thigh, or groin. Swelling in the leg or groin. A color change on the leg or groin. The skin may be reddish or purplish, depending on your usual skin color. You have signs of preeclampsia, such as: Sudden swelling of your face, hands, or feet. New vision problems (such as dimness, blurring, or seeing spots). A severe headache. You have signs of heart failure, such as: New or increased shortness of breath. New or worse swelling in your legs, ankles, or feet. Sudden weight gain, such as more than 2 to 3 pounds in a day or 5 pounds in a week. Feeling so tired or weak that you cannot do your usual activities. You had spinal or epidural pain relief and have: New or worse back pain. Increased pain, swelling, warmth, or redness at the injection site. Tingling, weakness, or numbness in your legs or groin. Watch closely for changes in your health, and be sure to contact your doctor or wrong address clerk if: Your vaginal bleeding isn't decreasing. You feel sad, anxious, or hopeless for more than a few days. You are having problems with your breasts or . Where can you learn more? Go to https://www.[employer]/patiented Enter M806 in the search box to learn more about Section: What to Expect at Home. Current as of: January 07, 2023 Content Version: 14.0 ?? [employer]. Care instructions adapted under license by your healthcare professional. If you have questions about a medical condition or this instruction, always ask your healthcare professional. [employer] disclaims any warranty or liability for your use of this information. documented in this encounter Medications at Time of Discharge Medication Sig Dispensed Refills Start Date End Date acetaminophen (TYLENOL) 325 MG tabletIndications:S/P section Take 3 tablets (975 mg) by mouth every 6 hours 10/13/2023 aspirin 81 MG EC tablet Take 81 mg by mouth daily ibuprofen (ADVIL/MOTRIN) 800 MG tabletIndications:S/P section Take 1 tablet (800 mg) by mouth every 6 hours 10/13/2023 magnesium oxide 400 MG CAPS Take 1 capsule by mouth daily oxyCODONE (ROXICODONE) 5 MG tabletIndications:S/P section Take 1 tablet (5 mg) by mouth every 4 hours as needed 8 tablet 10/13/2023 Vit-Fe Fumarate-FA ( MULTIVITAMIN PLUS IRON) 27-1 MG TABS Take 1 tablet by mouth daily documented as of this encounter Progress Notes * Lupe Fishman MD - 10/13/2023 8:34 AM CDT OB Post-op Section Progress Note POD# 2 S: Patient doing well. Pain well controlled with oral pain medication. Ambulating. Tolerating reg diet. No N/V. Passing flatus. Voiding. Bleeding is normal. . Denies dizziness/lightheadedness O: Vitals: 10/12/23 0947 10/12/23 1556 10/13/23 0114 10/13/23 0730 BP: 128/76 127/60 119/74 133/84 BP Location: Left arm Left arm Left arm Left arm Patient Position: Semi-Cool's Semi-Cool's Semi-Cool's Semi-Cool's Cuff Size: Adult Regular Adult Regular Adult Regular Adult Regular Pulse: 94 80 79 Resp: 20 18 16 18 Temp: 97.8 ??F (36.6 ??C) TempSrc: Oral SpO2: Height: Gen- A&O, NAD Abd- soft, non tender, non distended Fundus- firm, non tender Incision/Dressing- C/D/I (glue in place) Ext- non-tender, no edema. Recent Labs Lab 10/12/23 0646 10/10/23 1239 10/07/23 1407 HGB 8.6* 11.5* 11.2* O POS Rubella immune A/P: 38 year old POD# 2 s/p repeat LTCS and BTL. Doing well postoperatively. Hx cHTN - no BP issues this , no meds 1. Routine post-op cares 2. Analgesia adequate 3. Acute blood loss anemia: Hgb 11.5 --> 8.6 (EBL 1228mL), denies dizziness/lightheadedness. Recommend oral iron on discharge 4. 5. Rh pos, rubella immune Dispo: Discharge today pending next few BPs. Plan BP check within 1 wk. Discharge precautions reviewed. Lupe Fishman MD 10/13/2023 * Margot Min MD - 10/12/2023 10:30 AM CDT OB Post-op Section Progress Note POD# 1 S: Patient doing well. Pain well controlled with oral and IV pain medication. Ambulating. Tolerating reg diet. No N/V. Passing flatus. Voiding. Bleeding is normal. . Just showered. Denies dizziness/lightheadedness O: BP 128/76 (BP Location: Left arm, Patient Position: Semi-Cool's, Cuff Size: Adult Regular) Pulse 94 Temp 97.5 ??F (36.4 ??C) (Oral) Resp 20 Ht 1.626 m (5' 4) SpO2 98% Unknown BMI 26.61 kg/m?? Gen- A&O, NAD Abd- soft, non tender, non distended Fundus- firm, non tender Incision/Dressing- C/D/I (glue in place) Ext- non-tender, no edema. Recent Labs Lab 10/12/23 0646 10/10/23 1239 10/07/23 1407 HGB 8.6* 11.5* 11.2* O POS Rubella immune A/P: 38 year old POD# 1 s/p repeat LTCS and BTL Hx cHTN - no BP issues this , no meds 1. Routine post-op cares 2. Analgesia adequate 3. Acute blood loss anemia: Hgb 11.5 --> 8.6 (EBL 1228mL), denies dizziness/lightheadedness. Recommend oral iron on discharge 4. Discharge POD#2 if BP's WNL, will need BP check in office Margot Min MD 10/12/2023 10:31 AM documented in this encounter H&P Notes * Brittany Cotto MD - 10/11/2023 8:23 AM CDT OB Brief Admit H&P No significant change in general health status based on examination of the patient, review of Nursing Admission Database and record. Pt is a 38 year old @ 38w0d who presented to L&D for repeat section. Patient's course has been complicated by 1.cHTN - history of high BP outside of , mild range (130s/80) in , not on meds currently. IOL for GHTN with last and was on PP labetalol x 6 weeks 2.history of section 3.prior - fetus SGA, this , normally grown fetus 4.GBS+ 5. Proteinuria at 28 weeks 6. AMA- level II normal, NIPT normal Labs: Blood type O+/antibody negative Hep Bs Ag neg HIV neg RPR NR Hep C antibody negative Rubella immune GCT passed GBS positive S/p tdap BP 126/65 Temp 97.8 ??F (36.6 ??C) (Oral) Resp 22 EFM: 130 +accels, no decels, mod variability [place]: quiet Assessment: 38 year old @ 38w0d admitted for rpt c/s, h/o cHTN at term. Plan: 1. Admit to labor and delivery 2. Planned rpt c/s. Would like tubal ligation for sterilization. Patient consented for repeat section. Risk, benefits, alternatives discussed with patient to include, but not limited to bleeding requiring further surgery including a hysterectomy or blood transfusion (blood transfusion risk 1 in 2 million HIV and 1 in 250K Hep C), infection, damage to surrounding organs, hysterectomy, injury, risk of anesthesia including stroke/[place]/.All questions answered. Consent form signed. She is aware a tubal ligation is permanent and she is done with childbearing. Aware that occasionally we cannot do the tubal in case of scar tissue. Has keloid scar, will plan for scar revision with removal of keloid, discussed with patient who would like this. She is aware that keloid may reform. 3.upper respiratory sx, will swab for COVID/RSV/flu. Brittany Cotto MD 10/11/2023 8:23 AM documented in this encounter Miscellaneous Notes * Plan of Care - Kate Acosta RN - 10/13/2023 10:53 AM CDT Goal Outcome Evaluation: Plan of Care Reviewed With: patient Overall Patient Progress: improving Outcome Evaluation: BP's 130s; Fundal checks WNL; Bonding with baby VSS, BP's in the 130s. assessment WDL. Uterine fundus is firm and midline. Scant vaginalbleeding. Using Tylenol and Ibuprofen for pain management. Incision assessment WDL. , plan to start supplementing with formula post breastfeed. Has a breast pump at home. Questions/concerns addressed. Plan to discharge to home today. Problem: Adult Inpatient Plan of Care Goal: Plan of Care Review Description: The Plan of Care Review/Shift note should be completed every shift. The Outcome Evaluation is a brief statement about your assessment that the patient is improving, declining, or no change. This information will be displayed automatically on your shift note. Outcome: Progressing Flowsheets (Taken 10/13/2023 1052) Outcome Evaluation: BP's 130s Fundal checks WNL Bonding with baby Plan of Care Reviewed With: patient Overall Patient Progress: improving Goal: Patient-Specific Goal (Individualized) Description: You can add care plan individualizations to a care plan. Examples of Individualizationmight be: Parent requests to be called daily at 9am for status, I have a hard time hearing out of my right ear, or Do not touch me to wake me up as it startles me. Outcome: Progressing Goal: Absence of Hospital-Acquired Illness or Injury Outcome: Progressing Intervention: Prevent Skin Injury Recent Flowsheet Documentation Taken 10/13/2023 0730 by Kate Acosta RN Body Position: position changed independently Goal: Optimal Comfort and Wellbeing Outcome: Progressing Intervention: Monitor Pain and Promote Comfort Recent Flowsheet Documentation Taken 10/13/2023 1037 by Kate Acosta route sales person Interventions: medication (see MAR) Taken 10/13/2023 0730 by Kate Acosta route sales person Interventions: medication (see MAR) Intervention: Provide Person-Centered Care Recent Flowsheet Documentation Taken 10/13/2023 0730 by Kate Acosta RN Trust Relationship/Rapport: care explained choices provided questions answered questions encouraged Goal: Readiness for Transition of Care Outcome: Progressing Flowsheets Taken 10/13/2023917 Anticipated Changes Related to Illness: none Concerns to be Addressed: all concerns addressed in this encounter Taken 10/13/2023912 Concerns to be Addressed: all concerns addressed in this encounter Intervention: Mutually Develop Transition Plan Recent Flowsheet Documentation Taken 10/13/2023917 by Kate Acosta RN Anticipated Changes Related to Illness: none Concerns to be Addressed: all concerns addressed in this encounter Taken 10/13/2023912 by Kate Acosta RN Concerns to be Addressed: all concerns addressed in this encounter Patient/Family Anticipated Services at Transition: none Patient/Family Anticipates Transition to: home with family Equipment Currently Used at Home: none Problem: Delivery Goal: Bleeding is Controlled Outcome: Progressing Goal: Stable Wellbeing Outcome: Progressing Intervention: Promote and Monitor Wellbeing Recent Flowsheet Documentation Taken 10/13/2023729 by Kate Acosta RN Body Position: position changed independently Goal: Absence of Infection Signs and Symptoms Outcome: Progressing Goal: Effective Oxygenation and Ventilation Outcome: Progressing Problem: ( Delivery) Goal: Successful Parent Role Transition Outcome: Progressing Goal: Hemostasis Outcome: Progressing Goal: Effective Bowel Elimination Outcome: Progressing Goal: Fluid and Electrolyte Balance Outcome: Progressing Goal: Absence of Infection Signs and Symptoms Outcome: Progressing Goal: Anesthesia/Sedation Recovery Outcome: Progressing Goal: Optimal Pain Control and Function Outcome: Progressing Intervention: Prevent or Manage Pain Recent Flowsheet Documentation Taken 10/13/2023 1037 by Kate Acosta RN Pain Management Interventions: medication (see MAR) Taken 10/13/2023729 by Kate Acosta RN Pain Management Interventions: medication (see MAR) Goal: Nausea and Vomiting Relief Outcome: Progressing Goal: Effective Urinary Elimination Outcome: Progressing Goal: Effective Oxygenation and Ventilation Outcome: Progressing Intervention: Optimize Oxygenation and Ventilation Recent Flowsheet Documentation Taken 10/13/2023729 by Kate Acosta RN Head of Bed (HOB) Positioning: HOB at 45 degrees * Plan of Care - Darya Knox RN - 10/13/2023 3:22 AM CDT Goal Outcome Evaluation: Plan of Care Reviewed With: patient Overall Patient Progress: improvingOverall Patient Progress: improving Patient's vital signs stable, up independently in room. Voiding adequately and drinking adequate fluids. Pain managed with scheduled pain medications. baby every 2-3 hours and on demand. Spouse at bedside, supportive of patient and baby. Would like to discharge home 10/12. Problem: Adult Inpatient Plan of Care Goal: Plan of Care Review Description: The Plan of Care Review/Shift note should be completed every shift. The Outcome Evaluation is a brief statement about your assessment that the patient is improving, declining, or no change. This information will be displayed automatically on your shift note. Outcome: Progressing Flowsheets (Taken 10/13/2023 0322) Plan of Care Reviewed With: patient Overall Patient Progress: improving Intervention: Prevent Skin Injury Recent Flowsheet Documentation Taken 10/13/2023113 by Darya Knox RN Body Position: position changed independently Goal: Optimal Comfort and Wellbeing Outcome: Progressing Intervention: Monitor Pain and Promote Comfort Recent Flowsheet Documentation Taken 10/13/2023113 by Darya Knox, route sales person Interventions: medication (see MAR) Taken 10/12/20232205 by Darya Knox, route sales person Interventions: medication (see MAR) Intervention: Provide Person-Centered Care Recent Flowsheet Documentation Taken 10/13/2023113 by Darya Knox RN Trust Relationship/Rapport: care explained choices provided questions answered questions encouraged thoughts/feelings acknowledged Goal: Readiness for Transition of Care Outcome: Progressing Problem: Delivery Goal: Bleeding is Controlled Outcome: Progressing Goal: Stable Wellbeing Outcome: Progressing Intervention: Promote and Monitor Wellbeing Recent Flowsheet Documentation Taken 10/13/2023113 by Darya Knox, RN Body Position: position changed independently Goal: Absence of Infection Signs and Symptoms Outcome: Progressing Goal: Effective Oxygenation and Ventilation Outcome: Progressing Problem: ( Delivery) Goal: Successful Parent Role Transition Outcome: Progressing Goal: Hemostasis Outcome: Progressing Goal: Effective Bowel Elimination Outcome: Progressing Goal: Fluid and Electrolyte Balance Outcome: Progressing Goal: Absence of Infection Signs and Symptoms Outcome: Progressing Goal: Anesthesia/Sedation Recovery Outcome: Progressing Goal: Optimal Pain Control and Function Outcome: Progressing Intervention: Prevent or Manage Pain Recent Flowsheet Documentation Taken 10/13/2023 011 by Darya Knox route sales person Interventions: medication (see MAR) Taken 10/12/20232205 by Darya Knox RN Pain Management Interventions: medication (see MAR) Goal: Nausea and Vomiting Relief Outcome: Progressing Goal: Effective Urinary Elimination Outcome: Progressing Goal: Effective Oxygenation and Ventilation Outcome: Progressing Intervention: Optimize Oxygenation and Ventilation Recent Flowsheet Documentation Taken 10/13/2023 011 by Darya Knox RN Head of Bed (HOB) Positioning: HOB at 20-30 degrees * Plan of Care - Kate Acosta RN - 10/12/2023 5:29 PM CDT Goal Outcome Evaluation: Plan of Care Reviewed With: patient Overall Patient Progress: improving Outcome Evaluation: VSS; Reports minimal pain; Fundal checks WNL Vital signs stable. assessment WDL. Uterine fundus is firm and midline. Scant vaginal bleeding. Using Tylenol and Ibuprofen for pain management. Ice packs and heat packs used interchangeably. Incision assessment WDL. going well. Questions/concerns addressed. Spouse at bedside, supportive. Problem: Adult Inpatient Plan of Care Goal: Plan of Care Review Description: The Plan of Care Review/Shift note should be completed every shift. The Outcome Evaluation is a brief statement about your assessment that the patient is improving, declining, or no change. This information will be displayed automatically on your shift note. Outcome: Progressing Flowsheets (Taken 10/12/2023 1729) Outcome Evaluation: VSS Reports minimal pain Fundal checks WNL Plan of Care Reviewed With: patient Overall Patient Progress: improving Goal: Patient-Specific Goal (Individualized) Description: You can add care plan individualizations to a care plan. Examples of Individualizationmight be: Parent requests to be called daily at 9am for status, I have a hard time hearing out of my right ear, or Do not touch me to wake me up as it startles me. Outcome: Progressing Goal: Absence of Hospital-Acquired Illness or Injury Outcome: Progressing Intervention: Prevent Skin Injury Recent Flowsheet Documentation Taken 10/12/2023 1556 by Kate Acosta RN Body Position: position changed independently Taken 10/12/2023 0947 by Kate Acosta RN Body Position: position changed independently Goal: Optimal Comfort and Wellbeing Outcome: Progressing Intervention: Monitor Pain and Promote Comfort Recent Flowsheet Documentation Taken 10/12/2023 1556 by Kate Acosta RN Pain Management Interventions: medication (see AUG) cold applied Taken 10/12/2023 0855 by Kate Acosta RN Pain Management Interventions: medication (see AUG) Intervention: Provide Person-Centered Care Recent Flowsheet Documentation Taken 10/12/2023 1556 by Kate Acosta RN Trust Relationship/Rapport: care explained choices provided questions answered questions encouraged Taken 10/12/2023 0947 by Kate Acosta RN Trust Relationship/Rapport: care explained choices provided questions answered questions encouraged Goal: Readiness for Transition of Care Outcome: Progressing Problem: Delivery Goal: Bleeding is Controlled Outcome: Progressing Goal: Stable Wellbeing Outcome: Progressing Intervention: Promote and Monitor Wellbeing Recent Flowsheet Documentation Taken 10/12/2023 1556 by Kate Acosta RN Body Position: position changed independently Taken 10/12/2023 0947 by Kate Acosta RN Body Position: position changed independently Goal: Absence of Infection Signs and Symptoms Outcome: Progressing Goal: Effective Oxygenation and Ventilation Outcome: Progressing Problem: ( Delivery) Goal: Successful Parent Role Transition Outcome: Progressing Goal: Hemostasis Outcome: Progressing Goal: Effective Bowel Elimination Outcome: Progressing Goal: Fluid and Electrolyte Balance Outcome: Progressing Goal: Absence of Infection Signs and Symptoms Outcome: Progressing Goal: Anesthesia/Sedation Recovery Outcome: Progressing Goal: Optimal Pain Control and Function Outcome: Progressing Intervention: Prevent or Manage Pain Recent Flowsheet Documentation Taken 10/12/2023 1556 by Kate Acosta RN Pain Management Interventions: medication (see AUG) cold applied Taken 10/12/2023 0855 by Kate Acosta RN Pain Management Interventions: medication (see AUG) Goal: Nausea and Vomiting Relief Outcome: Progressing Goal: Effective Urinary Elimination Outcome: Progressing Goal: Effective Oxygenation and Ventilation Outcome: Progressing Intervention: Optimize Oxygenation and Ventilation Recent Flowsheet Documentation Taken 10/12/2023 155 by Kate Acosta RN Head of Bed (HOB) Positioning: HOB at 30-45 degrees Taken 10/12/2023 0947 by Kate Acosta, RN Head of Bed (HOB) Positioning: HOB at 30-45 degrees * Plan of Care - Sonja Chávez RN - 10/12/2023 5:19 AM CDT Goal Outcome Evaluation: Plan of Care Reviewed With: patient Overall Patient Progress: no changeOverall Patient Progress: no change Pt meeting expected goals for shift. Positive attachment behaviors noted with . VS WDL. 1 beat of clonus noted on left. Pt denies preeclampsia symptoms. Pain managed with scheduled meds-See MAR. Support person Herson, at bedside and supportive . Will continue to monitor and adjust plan as needed. * Plan of Care - Darya Knox RN - 10/11/2023 11:14 PM CDT Goal Outcome Evaluation: Plan of Care Reviewed With: patient, spouse Overall Patient Progress: improvingOverall Patient Progress: improving Patient's vital signs stable, up independently in room. Patient is voiding adequately and drinking adequate fluids. Pain is managed with scheduled pain medication and ice packs. She is breast feedingbaby girl every 2-3 hours and on demand. at bedside, supportive of patient and baby. Problem: Adult Inpatient Plan of Care Goal: Plan of Care Review Description: The Plan of Care Review/Shift note should be completed every shift. The Outcome Evaluation is a brief statement about your assessment that the patient is improving, declining, or no change. This information will be displayed automatically on your shift note. Outcome: Progressing Flowsheets (Taken 10/11/2023 2314) Plan of Care Reviewed With: patient spouse Overall Patient Progress: improving Goal: Absence of Hospital-Acquired Illness or Injury Outcome: Progressing Intervention: Prevent Skin Injury Recent Flowsheet Documentation Taken 10/11/20232236 by Darya Knox, RN Body Position: position changed independently Goal: Optimal Comfort and Wellbeing Outcome: Progressing Intervention: Monitor Pain and Promote Comfort Recent Flowsheet Documentation Taken 10/11/20232236 by Darya Knox RN Pain Management Interventions: medication (see MAR) cold applied Intervention: Provide Person-Centered Care Recent Flowsheet Documentation Taken 10/11/20232236 by Darya Knox RN Trust Relationship/Rapport: care explained choices provided questions answered questions encouraged thoughts/feelings acknowledged Goal: Readiness for Transition of Care Outcome: Progressing Problem: Delivery Goal: Bleeding is Controlled Outcome: Progressing Goal: Stable Wellbeing Outcome: Progressing Intervention: Promote and Monitor Wellbeing Recent Flowsheet Documentation Taken 10/11/20232236 by Darya Knox RN Body Position: position changed independently Goal: Absence of Infection Signs and Symptoms Outcome: Progressing Goal: Effective Oxygenation and Ventilation Outcome: Progressing Problem: ( Delivery) Goal: Successful Parent Role Transition Outcome: Progressing Goal: Hemostasis Outcome: Progressing Goal: Effective Bowel Elimination Outcome: Progressing Goal: Fluid and Electrolyte Balance Outcome: Progressing Goal: Absence of Infection Signs and Symptoms Outcome: Progressing Goal: Anesthesia/Sedation Recovery Outcome: Progressing Goal: Optimal Pain Control and Function Outcome: Progressing Intervention: Prevent or Manage Pain Recent Flowsheet Documentation Taken 10/11/20232236 by Darya Knox RN Pain Management Interventions: medication (see MAR) cold applied Goal: Nausea and Vomiting Relief Outcome: Progressing Goal: Effective Urinary Elimination Outcome: Progressing Goal: Effective Oxygenation and Ventilation Outcome: Progressing Intervention: Optimize Oxygenation and Ventilation Recent Flowsheet Documentation Taken 10/11/20232236 by Darya Knox RN Head of Bed (HOB) Positioning: HOB at 30-45 degrees * Plan of Care - Kate Acosta RN - 10/11/2023 6:45 PM CDT Goal Outcome Evaluation: Plan of Care Reviewed with: Patient Overall Patient Progress: Progressing Outcome Evaluation: VSS; Fundus firm, midline, scant bleeding; Bonding with baby in room Vital signs stable, BPs 130s/70s. assessment WDL. Uterine fundus is firm and midline. Scant vaginal bleeding. Using Tylenol and Toradol for pain management. Incision assessment WDL. Pt ambulated to bathroom at 1820, Mederos removed. Adequate U/O. Tolerating a regular diet. well so far, minimal assistance needed with positioning. Questions/concerns addressed. Spouse at bedside, supportive. * Plan of Care - Jordyn Espinosa RN - 10/11/2023 1:20 PM CDT Goal Outcome Evaluation: Plan of Care Reviewed With: patient, spouse Overall Patient Progress: improvingOverall Patient Progress: improving Outcome Evaluation: Pain minimal at 2/10. stable post op section Data: Bárbara Fuller transferred to 442 via wheelchair at 1255. Baby transferred via parent's arms. Action: Receiving unit notified of transfer: Yes. Patient and family notified of room change. Report given to Kate SHOEMAKER at 1155. Belongings sent to receiving unit. Accompanied by Registered Nurse. Oriented patient to surroundings. Call light within reach. ID bands double-checked with receiving RN. Response: Patient tolerated transfer and is stable. Turned in bed and pericare done. * Brief Op Note - Brittany Cotto MD - 10/11/2023 11:15 AM CDT [facility] Brief Operative Note Pre-operative diagnosis: Previous section [Z98.891] Sterilization [Z30.2] Post-operative diagnosis Same Procedure: Procedure(s): Repeat Section, bilateral Salpingectomy Scar revision- excision of keloid scar Surgeon(s): Surgeons and Role: * Brittany Cotto MD - Primary Estimated blood loss: 1228 ml Specimens: ID Type Source Tests Collected by Time Destination A : Cord blood Umbilical Cord OR DOCUMENTATION ONLY Brittany Cotto MD 10/11/2023 9:23 AM B : Tissue Umbilical Cord OR DOCUMENTATION ONLY Brittany Cotto MD 10/11/2023 9:23 AM C : Placenta Placenta OR DOCUMENTATION ONLY Brittany Cotto MD 10/11/2023 9:23 AM D : Tissue Fallopian Tube, Bilateral SEE PROVIDERS ORDERS Brittany Cotto MD 10/11/2023 9:24 AM Findings: see op note UOP 100 ml clear yellow IVF 1300 ml Brittany Cotto MD 10/11/2023 11:16 AM * Pharmacy-Admission Medication History - Ru Jacobs RPH - 10/08/2023 2:52 PM CDT Pre-Admission Medication History Medication history and patient interview completed by pre-admitting RN or pre- op/CORPORATE BOND TRADER. Reviewed by pharmacist, including [facility] dispense records, [facility] Care Everywhere, and chart review. Ru Jacobs, Pharm.D., [facility] Last Reviewed by Dionisio Sage RN on 10/04/2023 at 12:15 PM [employer]PER[employer]LL[employer] Med List Medication Sig Last Dose aspirin 81 MG EC tablet Take 81 mg by mouth daily magnesium oxide 400 MG CAPS Take 1 capsule by mouth daily Vit-Fe Fumarate-FA ( MULTIVITAMIN PLUS IRON) 27-1 MG TABS Take 1 tablet by mouth daily documented in this encounter Plan of Treatment Not on file documented as of this encounter Procedures Procedure Name Priority Date/Time Associated Diagnosis Comments HEMOGLOBIN Routine 10/12/2023 6:46 AM CDT SURGICAL PATHOLOGY EXAM Routine 10/11/2023 9:33 AM CDT SECTION, WITH BILATERAL SALPINGECTOMY 10/11/2023 8:54 AM CDT Previous section Sterilization Special Needs 90min req COVID-19 VIRUS (CORONAVIRUS) BY PCR STAT 10/11/2023 8:25 AM CDT INFLUENZA A/B, RSV, & SARS-COV2 PCR STAT 10/11/2023 8:25 AM CDT HEPATITIS B SURFACE ANTIGEN (EXTERNAL RESULT) Routine 03/07/2023 12:16 PM CDT HIV 1&2 ANTIBODY (EXTERNAL RESULT) Routine 03/07/2023 12:16 PM CDT RUBELLA ANTIBODY IGG (EXTERNAL RESULT) Routine 03/07/2023 12:16 PM CDT GROUP B STREPTOCOCCUS (EXTERNAL RESULT) Routine 09/26/2022 3:00 PM CDT documented in this encounter Results * (ABNORMAL) Hemoglobin (10/12/2023 6:46 AM CDT) Hemoglobin 8.6(L) 11.7 - 15.7 g/dL 10/12/2023 7:36 AM CDT LABORATORY Blood STRUCTURE OF LEFT UPPER LIMB / Unknown Venipuncture / Unknown 10/12/2023 6:46 AM CDT 10/12/2023 7:34 AM CDT Brittany Cotto MD LAB - BLOOD ORDERA [facility] Performing Organization Address City/State/[facility] Co de Phone Number LABORATORY [facility] [address] Lab (1st floor, no room number) [place] [address] * Surgical Pathology Exam (10/11/2023 9:33 AM CDT) Case Report Surgical Pathology Report ? Case: [id number] ? Authorizing Provider: ??Brittany Cotto MD ?Collected: ? 10/11/2023 09:33 AM ? Ordering Location: ? [facility] ?? Received: ?10/11/2023 09:54 AM ? Birthplace [...] is sectioned and displays a stellate lumen. Health Services Director sections of the specimen are submitted as follows: A1-first described unoriented fallopian tube (inked black-fimbriated end submitted entirely) T1-A8-lomrce described unoriented fallopian tube to include paratubal cysts (paratubal cysts and fimbriated end submitted entirely) (ROBERT Smith (ASCP) 10/14/2023 1:46 PM CDT LABORATORY Microscopic Description Microscopic examination was performed. Results are incorporated into the final diagnosis. All controls stained appropriately. 10/14/2023 1:46 PM CDT LABORATORY Performing Labs The technical component of this testing was completed at [facility] 10/14/2023 1:46 PM CDT LABORATORY Case Images 10/14/2023 1:46 PM CDT LABORATORY Tissue BOTH FALLOPIAN TUBES / Unknown Non-blood Collection / Unknown 10/11/2023 9:33 AM CDT 10/11/2023 9:54 AM CDT Brittany CLAUDIO - MRACOS LABORATORY [facility] Lab [address] 1[address] floor, [address] [place] [address] LABORATORY [facility] [address] Lab (1st floor, no room number) [place] [address] * Symptomatic Influenza A/B, RSV, & SARS-CoV2 [...] the Xpert Xpress CoV2/Flu/RSV Assay on the [employer] GeneXpert Instrument. This test should be ordered [...] management. This test was validated by the [facility] renal. These laboratories are certified under the Clinical Laboratory Improvement Amendments of 1988 (CLIA-88) as qualified to perform high complexity laboratory testing. Brittany Cotto MD LAB - MICRO GENERA L ORDERABLES [facility] Acute [facility] Lab [address] Lab (1st floor, no room number) [place] [address], [facility] * Symptomatic COVID-19 Virus (Coronavirus) by PCR Nasopharyngeal (10/11/2023 8:25 AM CDT) [facility] SARS CoV2 PCR Negative Negative 10/11/2023 9:17 AM CDT LABORATORY Comment:NEGATIVE: SARS-CoV-2 (COVID-19) RNA not detected, presumed negative. Swab NASOPHARYNGEAL STRUCTURE / Unknown Non-blood Collection / Unknown 10/11/2023 8:25 AM CDT 10/11/2023 8:34 AM CDT [facility] LABORATORY - 10/11/2023 9:17 AM CDT Testing was performed using the Xpert Xpress SARS-CoV-2 Assay on the [employer] Gene-Xpert Instrument Systems. Additional information about this Emergency [...] COVID-19. This test was validated by the [facility]. This laboratory is certified under the Clinical Laboratory Improvement Amendments (CLIA) as qualified to perform high complexity laboratory testing. Brittany Cotto MD LAB - MICRO GENERA L ORDERABLES Performing Organization Address City/[facility]/ZIP Co de Phone Number [facility] Acute [facility] Lab [address] [facility] Lab (1st floor, no room number) [place] [address], [facility] * HIV-1 Antibody (External Result) (03/07/2023 12:16 PM CDT) HIV 1&2 Antibody (External) Negative Nonreactive EXTERNAL LAB 03/07/2023 12:1 6 PM CDT Patient Reported LAB - HIM EXTERNAL R ESULT Performing Organization Address [facility] Co de Phone Number EXTERNAL LAB External Lab * Hepatitis B Surface Antigen (External Result) (03/07/2023 12:16 PM CDT) Hepatitis B Surface Antigen (External) Negative Nonreactive EXTERNAL LAB 03/07/2023 12:1 6 PM CDT Patient Reported LAB - HIM EXTERNAL R ESULT Performing Organization Address City/[facility]/ZIP Co de Phone Number EXTERNAL LAB External Lab * Rubella Antibody IgG (External Result) (03/07/2023 12:16 PM CDT) Rubella Antibody IgG (External) Immune Nonreactive EXTERNAL LAB 03/07/2023 12:1 6 PM CDT Patient Reported LAB - HIM EXTERNAL R ESULT EXTERNAL LAB External Lab * (ABNORMAL) Group B Streptococcus (External Result) (09/26/2022 3:00 PM CDT) Group B Streptococcus (External) Positive( A) Negative EXTERNAL LAB 09/26/2022 3:00 PM CDT Patient Reported LAB - HIM EXTERNAL R ESULT EXTERNAL LAB External Lab documented in this encounter Visit Diagnoses Diagnosis S/P section- Primary Other postprocedural status S/P Other postprocedural status Chronic hypertension affecting documented in this encounter Administered Medications Inactive Administered Medications - up to 3 most recent administrations Medication Order MAR Action Action Date Dose Rate Site acetaminophen (TYLENOL) tablet 975 mg 975 mg, Oral, ONCE, On Sat10/11/23 at 0800, For 1 dose, Maximum acetaminophen dose from all sources = 75 mg/kg/day not to exceed 4 grams/day., Pre-procedure $Given 10/11/2023 8:28 AM CDT 975 mg acetaminophen (TYLENOL) tablet 975 mg 975 mg, Oral, EVERY 6 HOURS, First dose on Sat10/11/23 at 1430, Start 6 hours after pre-op dose (if given) Maximum acetaminophen dose from all sources = 75 mg/kg/day not to exceed 4 grams/day. $Given 10/13/2023 10:37 AM CDT 975 mg $Given 10/13/2023 4:31 AM CDT 975 mg $Given 10/12/2023 10:06 PM CDT 975 mg bisacodyl (DULCOLAX) suppository 10 mg 10 mg, Rectal, DAILY PRN, constipation, Starting on Sat10/13/23 at 0000, Start POD 2 Hold for loose stools. carboprost (HEMABATE) injection 250 mcg 250 mcg, Intramuscular, EVERY 15 MIN PRN, other, ONLY for uterine atony with significant bleeding POST-DELIVERY, Starting on Sat10/11/23 at 1120, Notify provider IF uterine atony and clarify with provider medication preference. Administer only if directed by provider. Give with caution in patients with asthma, active pulmonary, hepatic, renal or cardiovascular disease. dextrose 5% in lactated ringers infusion at 125 mL/hr, Intravenous, CONTINUOUS, Subsequent IV at nurse's discretion. DC IV when tolerating fluids or at nurse's discretion & saline lock., Starting on Sat10/11/23 at 1130, Until Sat10/13/23 at 1414 $New Bag 10/11/2023 12:20 PM CDT 125 mL/hr hydrocortisone (Perianal) (ANUSOL-HC) 2.5 % cream Rectal, 3 TIMES DAILY PRN, hemorrhoids, Starting on Sat10/11/23 at 1120, Apply to hemorrhoids. Send only if nurse requests. HYDROmorphone (DILAUDID) injection 0.2 mg 0.2 mg, Intravenous, EVERY 2 HOURS PRN, severe pain, Starting on Sat10/11/23 at 1114 ibuprofen (ADVIL/MOTRIN) tablet 800 mg 800 mg, Oral, EVERY 6 HOURS, First dose on Sat10/12/23 at 1130, Give with food. $Given 10/13/2023 7:30 AM CDT 800 mg $Given 10/13/2023 1:13 AM CDT 800 mg $Given 10/12/2023 5:53 PM CDT 800 mg ketorolac (TORADOL) injection 30 mg 30 mg, Intravenous, EVERY 6 HOURS, First dose on Sat10/11/23 at 1730, For 3 doses, Give first dose in PACU IF NOT given in OR. Can cause pain on injection. If ordered intravenously (IV) : administer through a running maintenance fluid over 1 minute followed by a flush. If patient complains of pain on injection, may dilute 15-30 mg in 5 mL and push over 1 to 2 minutes. $Given 10/12/2023 4:52 AM CDT 30 mg $Given 10/11/2023 10:41 PM CDT 30 mg $Given 10/11/2023 4:36 PM CDT 30 mg lactated ringers BOLUS 500 mL Intravenous, 500 mL, ONCE, at 1,000 mL/hr, Administer over 30 Minutes, On Sat10/11/23 at 0800, For 1 dose, Initiate within 60 minutes of surgical procedure, Pre-procedure $New Bag 10/11/2023 7:58 AM CDT 500 mLs 1000 mL/hr lactated ringers infusion at 100 mL/hr, Intravenous, CONTINUOUS, Pre-operative maintenance fluid., Pre-procedure, Starting on Sat10/11/23 at 0800, Until Sat10/11/23 at 1058 $New Bag 10/11/2023 9:40 AM CDT Rate/Dose Change 10/11/2023 8:30 AM CDT 100 mL/ hr lanolin cream Topical, EVERY 1 HOUR PRN, dry skin, soreness, Starting on Sat10/11/23 at 1120, Apply to sore nipples after feedings lidocaine (LMX4) cream Topical, EVERY 1 HOUR PRN, pain, with VAD insertion, Starting on Sat10/11/23 at 1120, Apply at least 30 minutes prior to VAD insertion in divided doses as needed for size of site for insertion. MAX Dose: 2.5 g (?? of 5 g tube) Do NOT give if patient has a history of allergy to any local anesthetic or any amauri product. Do NOT use both lidocaine intradermal/subcutaneous injection and the lidocaine cream on the same site. lidocaine 1 % 0.1-1 mL 0.1-1 mL, Other, EVERY 1 HOUR PRN, mild pain with VAD insertion, Starting on Sat10/11/23 at 1120, MAX dose 1 mL subcutaneous OR intradermal along the side of the vein in divided doses as needed for VAD insertion. Do NOT give if patient has a history of allergy to any local anesthetic or any amauri product. Do NOT use both lidocaine intradermal/subcutaneous injection and the lidocaine cream on the same site. loperamide (IMODIUM) capsule 2 mg 2 mg, Oral, EVERY 2 HOURS PRN, other, after each loose stool, Starting on Sat10/11/23 at 1120, May give only after delivery. For diarrhea occurring after carboprost (HEMABATE) administration ONLY. Maximum 16 mg/day. Do NOT give stool softeners or laxatives until diarrhea is resolved. loperamide (IMODIUM) capsule 4 mg 4 mg, Oral, ONCE PRN, other, Give with first dose of carboprost (HEMABATE), Starting on Sat10/11/23 at 1120, For 1 dose, May give only after delivery. methylergonovine (METHERGINE) injection 200 mcg 200 mcg, Intramuscular, EVERY 2 HOURS PRN, ONLY for uterine atony with significant bleeding POST-DELIVERY, Starting on Sat10/11/23 at 1120, Notify provider IF uterine atony and clarify with provider medication preference. Administer only if directed by provider. Contraindicated if Blood Pressure greater than 140/90, preeclampsia, or hypertension. metoclopramide (REGLAN) injection 10 mg 10 mg, Intravenous, Administer over 2 Minutes, EVERY 6 HOURS PRN, nausea, vomiting, Starting on Sat10/11/23 at 1120, This is Step 1 of OB nausea and vomiting management. If nausea is not resolved in 30 minutes, go to Step 2 (Zofran). Avoid use if patient has full bowel obstruction or perforation. Irritant. metoclopramide (REGLAN) tablet 10 mg 10 mg, Oral, EVERY 6 HOURS PRN, nausea and vomiting, Starting on Sat10/11/23 at 1120, This is Step 1 of OB nausea and vomiting management. If nausea is not resolved in 30 minutes, go to Step 2 (Zofran) Avoid use if patient has full bowel obstruction or perforation. misoprostol (CYTOTEC) tablet 400 mcg 400 mcg, Oral, GIVE ONCE PRN AND REPEAT ACCORDING TO INSTRUCTIONS, post- hemorrhage, Starting on Sat10/11/23 at 1120, Administer only if directed by provider. Max administrations: 4 doses misoprostol (CYTOTEC) tablet 800 mcg 800 mcg, Rectal, GIVE ONCE PRN AND REPEAT ACCORDING TO INSTRUCTIONS, post- hemorrhage, Starting on Sat10/11/23 at 1120, Give rectally if unable to take oral without complications. Administer only if directed by provider. Max administrations: 4 doses. No MMR Needed - Assessment: Patient does not need MMR vaccine CONTINUOUS PRN, Starting on Sat10/11/23 at 1120, Until 10/13/23 at 1414 No Tdap Needed - Assessment: Patient does not need Tdap vaccine CONTINUOUS PRN, Starting on Sat10/11/23 at 1120, Until 10/13/23 at 1414 ondansetron (ZOFRAN ODT) ODT tab 4 mg 4 mg, Oral, EVERY 6 HOURS PRN, nausea, vomiting, Starting on Sat10/11/23 at 1120, This is Step 2 of OB nausea and vomiting management. Give If nausea not resolved in 30 minutes after giving metoclopramide (REGLAN). If nausea is not resolved in 15 minutes, go to Step 3 (Compazine). With dry hands, peel back foil backing and gently remove tablet. Do not push oral disintegrating tablet through foil backing. Administer immediately on tongue and oral disintegrating tablet dissolves in seconds, then swallow with saliva. Liquid not required. ondansetron (ZOFRAN) injection 4 mg 4 mg, Intravenous, EVERY 6 HOURS PRN, nausea, vomiting, Administer over 2-5 Minutes, Starting on Sat10/11/23 at 1120, This is Step 2 of OB nausea and vomiting management. Give if nausea not resolved 30 minutes after giving metoclopramide (REGLAN). If nausea is not resolved in 15 minutes, go to Step 3 (Compazine). Irritant. oxyCODONE (ROXICODONE) tablet 5 mg 5 mg, Oral, EVERY 4 HOURS PRN, other, pain control or improvement in physical function. Hold dose for analgesic side effects., Starting on Sat10/11/23 at 1120, Notify provider to assess for uncontrolled pain or analgesic side effects. Hold while on PURLER or with regular IV opioid dosing. Maximum total is 60 mg in 24 hours. oxytocin (PITOCIN) 30 units in 500 mL 0.9% NaCl infusion 340 mL/hr, Intravenous, CONTINUOUS PRN, for hemorrhage (PPH) UNTIL bleeding subsided., Starting on Sat10/11/23 at 1120, When bleeding subsides decrease rate to 100 mL/hr. Notify provider immediately when infusion begun. Oxytocin is first line medication for PPH. oxytocin (PITOCIN) injection 10 Units 10 Units, Intramuscular, ONCE PRN, for hemorrhage (PPH), IF no IV access is available., Starting on Sat10/11/23 at 1120, For 1 dose, Notify provider immediately when injection given. Oxytocin is first line medication for PPH. prochlorperazine (COMPAZINE) injection 10 mg 10 mg, Intravenous, EVERY 6 HOURS PRN, nausea, vomiting, Administer over 2 Minutes, Starting on Sat10/11/23 at 1120, This is Step 3 of OB nausea and vomiting management. Give if nausea not resolved 15 minutes after giving ondansetron (ZOFRAN). If nausea is not resolved in 30 minutes, notify provider. prochlorperazine (COMPAZINE) suppository 25 mg 25 mg, Rectal, EVERY 12 HOURS PRN, nausea, vomiting, Starting on Sat10/11/23 at 1120, This is Step 3 of OB nausea and vomiting management. Give if nausea not resolved 15 minutes after giving ondansetron (ZOFRAN). If nausea is not resolved in 30 minutes, notify provider. prochlorperazine (COMPAZINE) tablet 10 mg 10 mg, Oral, EVERY 6 HOURS PRN, nausea, vomiting, Starting on Sat10/11/23 at 1120, This is Step 3 of OB nausea and vomiting management. Give if nausea not resolved 15 minutes after giving ondansetron (ZOFRAN). If nausea is not resolved in 30 minutes, notify provider. senna-docusate (SENOKOT-S/PERICOLACE) 8.6-50 MG per tablet 1 tablet 1 tablet, Oral, 2 TIMES DAILY, First dose on Sat10/11/23 at 2100, If no bowel movement in 24 hours, increase to 2 tablets PO. Hold for loose stools. Preferred agent for constipation related to opioids. Hold for loose stools. $Given 10/12/2023 8:55 AM CDT 1 tablet $Given 10/11/2023 8:39 PM CDT 1 tablet senna-docusate (SENOKOT-S/PERICOLACE) 8.6-50 MG per tablet 2 tablet 2 tablet, Oral, 2 TIMES DAILY, First dose on Sat10/11/23 at 2100, Hold for loose stools. Preferred agent for constipation related to opioids. Hold for loose stools. $Given 10/12/2023 10:06 PM CDT 2 tablets simethicone (MYLICON) chewable tablet 80 mg 80 mg, Oral, 4 TIMES DAILY PRN, other, gas, Starting on Sat10/11/23 at 1120, Chew. sodium chloride (PF) 0.9% PF flush 3 mL 3 mL, Intracatheter, EVERY 8 HOURS, First dose on Sat10/11/23 at 1130, to lock peripheral IV dormant line $Given 10/12/2023 12:40 AM CDT 3 mLs $Given 10/11/2023 10:41 PM CDT 3 mLs sodium chloride (PF) 0.9% PF flush 3 mL 3 mL, Intracatheter, EVERY 1 MIN PRN, line flush, other, to ensure patency or to lock dormant line, Starting on Sat10/11/23 at 1120 sodium citrate-citric acid (BICITRA) solution 30 mL 30 mL, Oral, PRE-OP/PRE-PROCEDURE, Starting on Sat10/11/23 at 0756, For 1 dose, For gastric pH neutralization. GIVE WITHIN 45 minutes PRIOR TO SURGICAL PROCEDURE., Pre-procedure $Given 10/11/2023 8:28 AM CDT 30 mLs sodium phosphate (FLEET ENEMA) 1 enema 1 enema, Rectal, DAILY PRN, constipation, , Starting on Sat10/13/23 at 0000, Use if bisacodyl not effective. Start POD 2. Hold for loose stools unless being administered as part of a bowel prep regimen prior to a procedure. tranexamic acid 1 g in 100 mL NS IV bag (premix) 1 g, Intravenous, Administer over 10 Minutes, EVERY 30 MIN PRN, Post- hemorrhage (PPH), Starting on Sat10/11/23 at 1120, For 2 doses, Provider consultation REQUIRED and MUST be administered as soon as the ONSET of bleeding AND within 3 hours of regardless of cause of the PPH (atony OR laceration). IF bleeding continues, a 2nd dose may be administered after 30 minutes. IF concern for DIC (Disseminated Intravascular Coagulation), obtain coagulation studies PRIOR to administration. Contraindications include: history of PE (Pulmonary Emboli), DVT (Deep Vein Thrombosis) and current Subarachnoid hemorrhage and active DIC. Administer only if directed by provider. documented in this encounter Active and Recently Administered Medications Times are shown in CDT. Scheduled Medication Order 10/11/2023 10/12/2023 10/13/2023 acetaminophen (TYLENOL) tablet 975 mg (COMPLETED) 975 mg, Oral, ONCE, On Sat10/11/23 at 0800, For 1 dose, Maximum acetaminophen dose from all sources = 75 mg/kg/day not to exceed 4 grams/day., Pre-procedure 0828 ($Given - Provider: Jordyn Espinosa RN) acetaminophen (TYLENOL) tablet 975 mg 975 mg, Oral, EVERY 6 HOURS, First dose on Sat10/11/23 at 1430, Start 6 hours after pre-op dose (if given) Maximum acetaminophen dose from all sources = 75 mg/kg/day not to exceed 4 grams/day. 1433 ($Given - Provider: Kate Acosta RN)2039 ($Given - Provider: Darya Knox, RN) 0232 ($Given - Provider: Sonja Chávez RN)0855 ($Given - Provider: Kate Acosta RN)1556 ($Given - Provider: Kate Acosta RN)2206 ($Given - Provider: Darya Knox, SAHARA) 0431 ($Given - Provider: Darya Knox, RN)1037 ($Given - Provider: Kate Acosta RN) ceFAZolin Sodium (ANCEF) injection 2 g (COMPLETED) Routine, 2 g, Intravenous, PRE-OP/PRE-PROCEDURE, Starting on Sat10/11/23 at 0756, For 1 dose, Give no sooner than 60 minutes prior to incision., Indications: Perioperative Pharmacoprophylaxis, Pre-procedure 0854 ($Given - Provider: Angie Beach APRN CRNA) ibuprofen (ADVIL/MOTRIN) tablet 800 mg 800 mg, Oral, EVERY 6 HOURS, First dose on Sat10/12/23 at 1130, Give with food. 1129 ($Given - Provider: Rahel Cruz RN)1753 ($Given - Provider: Kate Acosta RN) 0113 ($Given - Provider: Darya Knox, SAHARA)0730 ($Given - Provider: Kate Acosta RN)1315 (Canceled Entry - Provider: Orders Generic Provider - Comment: Automatically canceled at discontinue of medication order) ketorolac (TORADOL) injection 30 mg (COMPLETED) 30 mg, Intravenous, EVERY 6 HOURS, First dose on Sat10/11/23 at 1730, For 3 doses, Give first dose in PACU IF NOT given in OR. Can cause pain on injection. If ordered intravenously (IV) : administer through a running maintenance fluid over 1 minute followed by a flush. If patient complains of pain on injection, may dilute 15-30 mg in 5 mL and push over 1 to 2 minutes. 1636 ($Given - Provider: Kate Acosta RN)2241 ($Given - Provider: Darya Knox RN) 0452 ($Given - Provider: Sonja Chávez, RN) lactated ringers BOLUS 500 mL (COMPLETED) Intravenous, 500 mL, ONCE, at 1,000 mL/hr, Administer over 30 Minutes, On Sat10/11/23 at 0800, For 1 dose, Initiate within 60 minutes of surgical procedure, Pre-procedure 0758 ($New Bag - Provider: Jordyn Espinosa, RN) senna-docusate (SENOKOT-S/PERICOLACE) 8.6-50 MG per tablet 1 tablet(Linked Group 1) 1 tablet, Oral, 2 TIMES DAILY, First dose on Sat10/11/23 at 2100, If no bowel movement in 24 hours, increase to 2 tablets PO. Hold for loose stools. Preferred agent for constipation related to opioids. Hold for loose stools. 2038 ($Given - Provider: Darya Knox RN) 0855 ($Given - Provider: Kate Acosta RN)2206 (See Alternative - Provider: Darya Knox RN) 1038 (Not Given - Provider: Kate Acosta RN - Reason: Patient/family refused) senna-docusate (SENOKOT-S/PERICOLACE) 8.6-50 MG per tablet 2 tablet(Linked Group 1) 2 tablet, Oral, 2 TIMES DAILY, First dose on Sat10/11/23 at 2100, Hold for loose stools. Preferred agent for constipation related to opioids. Hold for loose stools. 2038 (See Alternative - Provider: Darya Knox RN) 0855 (See Alternative - Provider: Kate Acosta RN)2206 ($Given - Provider: Darya Knox RN) 1038 (See Alternative - Provider: Kate Acosta RN) sodium chloride (PF) 0.9% PF flush 3 mL (CANCELED) 3 mL, Intracatheter, EVERY 8 HOURS, First dose on Sat10/11/23 at 1130, to lock peripheral IV dormant line 1220 (Not Given - Provider: Jordyn Espinosa, RN - Reason: IV Infusing)2241 ($Given - Provider: Darya Knox RN) 0040 ($Given - Provider: Sonja Chávez, SAHARA)0630 (Canceled Entry - Provider: Sonja Chávez RN)1538 (Not Given - Provider: Kate Acosta RN - Reason: Patient sleeping)2212 (Not Given - Provider: Darya Knox RN - Reason: No IV Access) sodium citrate-citric acid (BICITRA) solution 30 mL (COMPLETED) 30 mL, Oral, PRE-OP/PRE-PROCEDURE, Starting on Sat10/11/23 at 0756, For 1 dose, For gastric pH neutralization. GIVE WITHIN 45 minutes PRIOR TO SURGICAL PROCEDURE., Pre-procedure 0828 ($Given - Provider: Jordyn Espinosa RN) Continuous Medication Order 10/11/2023 10/12/2023 10/13/2023 dextrose 5% in lactated ringers infusion at 125 mL/hr, Intravenous, CONTINUOUS, Subsequent IV at nurse's discretion. DC IV when tolerating fluids or at nurse's discretion & saline lock., Starting on Sat10/11/23 at 1130, Until Sat10/13/23 at 1414 1220 ($New Bag - Provider: Jordyn Espinosa RN) lactated ringers infusion (CANCELED) at 100 mL/hr, Intravenous, CONTINUOUS, Pre-operative maintenance fluid., Pre-procedure, Starting on Sat10/11/23 at 0800, Until Sat10/11/23 at 1058 0830 (Rate/Dose Change - Provider: Jordyn Espinosa RN)0939 (Paused - Provider: Angie Beach APRN CRNA - Comment: Switch to gravity)0940 ($New Bag - Provider: Angie Beach APRN CHART READER)1019 (Anesthesia Volume Adjustment - Provider: Angie Beach APRN CRNA) PRN Medication Order 10/11/2023 10/12/2023 10/13/2023 bisacodyl (DULCOLAX) suppository 10 mg 10 mg, Rectal, DAILY PRN, constipation, Starting on Sat10/13/23 at 0000, Start POD 2 Hold for loose stools. carboprost (HEMABATE) injection 250 mcg(Linked Group 2) 250 mcg, Intramuscular, EVERY 15 MIN PRN, other, ONLY for uterine atony with significant bleeding POST-DELIVERY, Starting on Sat10/11/23 at 1120, Notify provider IF uterine atony and clarify with provider medication preference. Administer only if directed by provider. Give with caution in patients with asthma, active pulmonary, hepatic, renal or cardiovascular disease. hydrocortisone (Perianal) (ANUSOL-HC) 2.5 % cream Rectal, 3 TIMES DAILY PRN, hemorrhoids, Starting on Sat10/11/23 at 1120, Apply to hemorrhoids. Send only if nurse requests. HYDROmorphone (DILAUDID) injection 0.2 mg 0.2 mg, Intravenous, EVERY 2 HOURS PRN, severe pain, Starting on Sat10/11/23 at 1114 lanolin cream Topical, EVERY 1 HOUR PRN, dry skin, soreness, Starting on Sat10/11/23 at 1120, Apply to sore nipples after feedings lidocaine (LMX4) cream Topical, EVERY 1 HOUR PRN, pain, with VAD insertion, Starting on Sat10/11/23 at 1120, Apply at least 30 minutes prior to VAD insertion in divided doses as needed for size of site for insertion. MAX Dose: 2.5 g (?? of 5 g tube) Do NOT give if patient has a history of allergy to any local anesthetic or any amauri product. Do NOT use both lidocaine intradermal/subcutaneous injection and the lidocaine cream on the same site. lidocaine 1 % 0.1-1 mL 0.1-1 mL, Other, EVERY 1 HOUR PRN, mild pain with VAD insertion, Starting on Sat10/11/23 at 1120, MAX dose 1 mL subcutaneous OR intradermal along the side of the vein in divided doses as needed for VAD insertion. Do NOT give if patient has a history of allergy to any local anesthetic or any amauri product. Do NOT use both lidocaine intradermal/subcutaneous injection and the lidocaine cream on the same site. loperamide (IMODIUM) capsule 2 mg 2 mg, Oral, EVERY 2 HOURS PRN, other, after each loose stool, Starting on Sat10/11/23 at 1120, May give only after delivery. For diarrhea occurring after carboprost (HEMABATE) administration ONLY. Maximum 16 mg/day. Do NOT give stool softeners or laxatives until diarrhea is resolved. loperamide (IMODIUM) capsule 4 mg(Linked Group 2) 4 mg, Oral, ONCE PRN, other, Give with first dose of carboprost (HEMABATE), Starting on Sat10/11/23 at 1120, For 1 dose, May give only after delivery. methylergonovine (METHERGINE) injection 200 mcg 200 mcg, Intramuscular, EVERY 2 HOURS PRN, ONLY for uterine atony with significant bleeding POST-DELIVERY, Starting on Sat10/11/23 at 1120, Notify provider IF uterine atony and clarify with provider medication preference. Administer only if directed by provider. Contraindicated if Blood Pressure greater than 140/90, preeclampsia, or hypertension. metoclopramide (REGLAN) injection 10 mg(Linked Group 3) 10 mg, Intravenous, Administer over 2 Minutes, EVERY 6 HOURS PRN, nausea, vomiting, Starting on Sat10/11/23 at 1120, This is Step 1 of OB nausea and vomiting management. If nausea is not resolved in 30 minutes, go to Step 2 (Zofran). Avoid use if patient has full bowel obstruction or perforation. Irritant. metoclopramide (REGLAN) tablet 10 mg(Linked Group 3) 10 mg, Oral, EVERY 6 HOURS PRN, nausea and vomiting, Starting on Sat10/11/23 at 1120, This is Step 1 of OB nausea and vomiting management. If nausea is not resolved in 30 minutes, go to Step 2 (Zofran) Avoid use if patient has full bowel obstruction or perforation. misoprostol (CYTOTEC) tablet 400 mcg(Linked Group 4) 400 mcg, Oral, GIVE ONCE PRN AND REPEAT ACCORDING TO INSTRUCTIONS, post- hemorrhage, Starting on Sat10/11/23 at 1120, Administer only if directed by provider. Max administrations: 4 doses misoprostol (CYTOTEC) tablet 800 mcg(Linked Group 4) 800 mcg, Rectal, GIVE ONCE PRN AND REPEAT ACCORDING TO INSTRUCTIONS, post- hemorrhage, Starting on Sat10/11/23 at 1120, Give rectally if unable to take oral without complications. Administer only if directed by provider. Max administrations: 4 doses. No MMR Needed - Assessment: Patient does not need MMR vaccine CONTINUOUS PRN, Starting on Sat10/11/23 at 1120, Until 10/13/23 at 1414 No Tdap Needed - Assessment: Patient does not need Tdap vaccine CONTINUOUS PRN, Starting on Sat10/11/23 at 1120, Until 10/13/23 at 1414 ondansetron (ZOFRAN ODT) ODT tab 4 mg(Linked Group 5) 4 mg, Oral, EVERY 6 HOURS PRN, nausea, vomiting, Starting on Sat10/11/23 at 1120, This is Step 2 of OB nausea and vomiting management. Give If nausea not resolved in 30 minutes after giving metoclopramide (REGLAN). If nausea is not resolved in 15 minutes, go to Step 3 (Compazine). With dry hands, peel back foil backing and gently remove tablet. Do not push oral disintegrating tablet through foil backing. Administer immediately on tongue and oral disintegrating tablet dissolves in seconds, then swallow with saliva. Liquid not required. ondansetron (ZOFRAN) injection 4 mg(Linked Group 5) 4 mg, Intravenous, EVERY 6 HOURS PRN, nausea, vomiting, Administer over 2-5 Minutes, Starting on Sat10/11/23 at 1120, This is Step 2 of OB nausea and vomiting management. Give if nausea not resolved 30 minutes after giving metoclopramide (REGLAN). If nausea is not resolved in 15 minutes, go to Step 3 (Compazine). Irritant. oxyCODONE (ROXICODONE) tablet 5 mg 5 mg, Oral, EVERY 4 HOURS PRN, other, pain control or improvement in physical function. Hold dose for analgesic side effects., Starting on Sat10/11/23 at 1120, Notify provider to assess for uncontrolled pain or analgesic side effects. Hold while on PURLER or with regular IV opioid dosing. Maximum total is 60 mg in 24 hours. oxytocin (PITOCIN) 30 units in 500 mL 0.9% NaCl infusion 340 mL/hr, Intravenous, CONTINUOUS PRN, for hemorrhage (PPH) UNTIL bleeding subsided., Starting on Sat10/11/23 at 1120, When bleeding subsides decrease rate to 100 mL/hr. Notify provider immediately when infusion begun. Oxytocin is first line medication for PPH. oxytocin (PITOCIN) injection 10 Units 10 Units, Intramuscular, ONCE PRN, for hemorrhage (PPH), IF no IV access is available., Starting on Sat10/11/23 at 1120, For 1 dose, Notify provider immediately when injection given. Oxytocin is first line medication for PPH. prochlorperazine (COMPAZINE) injection 10 mg(Linked Group 6) 10 mg, Intravenous, EVERY 6 HOURS PRN, nausea, vomiting, Administer over 2 Minutes, Starting on Sat10/11/23 at 1120, This is Step 3 of OB nausea and vomiting management. Give if nausea not resolved 15 minutes after giving ondansetron (ZOFRAN). If nausea is not resolved in 30 minutes, notify provider. prochlorperazine (COMPAZINE) suppository 25 mg(Linked Group 6) 25 mg, Rectal, EVERY 12 HOURS PRN, nausea, vomiting, Starting on Sat10/11/23 at 1120, This is Step 3 of OB nausea and vomiting management. Give if nausea not resolved 15 minutes after giving ondansetron (ZOFRAN). If nausea is not resolved in 30 minutes, notify provider. prochlorperazine (COMPAZINE) tablet 10 mg(Linked Group 6) 10 mg, Oral, EVERY 6 HOURS PRN, nausea, vomiting, Starting on Sat10/11/23 at 1120, This is Step 3 of OB nausea and vomiting management. Give if nausea not resolved 15 minutes after giving ondansetron (ZOFRAN). If nausea is not resolved in 30 minutes, notify provider. simethicone (MYLICON) chewable tablet 80 mg 80 mg, Oral, 4 TIMES DAILY PRN, other, gas, Starting on Sat10/11/23 at 1120, Chew. sodium chloride (PF) 0.9% PF flush 3 mL 3 mL, Intracatheter, EVERY 1 MIN PRN, line flush, other, to ensure patency or to lock dormant line, Starting on Sat10/11/23 at 1120 sodium phosphate (FLEET ENEMA) 1 enema 1 enema, Rectal, DAILY PRN, constipation, , Starting on Sat10/13/23 at 0000, Use if bisacodyl not effective. Start POD 2. Hold for loose stools unless being administered as part of a bowel prep regimen prior to a procedure. tranexamic acid 1 g in 100 mL NS IV bag (premix) 1 g, Intravenous, Administer over 10 Minutes, EVERY 30 MIN PRN, Post- hemorrhage (PPH), Starting on Sat10/11/23 at 1120, For 2 doses, Provider consultation REQUIRED and MUST be administered as soon as the ONSET of bleeding AND within 3 hours of regardless of cause of the PPH (atony OR laceration). IF bleeding continues, a 2nd dose may be administered after 30 minutes. IF concern for DIC (Disseminated Intravascular Coagulation), obtain coagulation studies PRIOR to administration. Contraindications include: history of PE (Pulmonary Emboli), DVT (Deep Vein Thrombosis) and current Subarachnoid hemorrhage and active DIC. Administer only if directed by provider. Linked Groups Order Group 1: senna-docusate (SENOKOT-S/PERICOLACE) 8.6-50 MG per tablet 1 tabletJump to med 1 tablet, Oral, 2 TIMES DAILY, First dose on Sat10/11/23 at 2100, If no bowel movement in 24 hours, increase to 2 tablets PO. Hold for loose stools. Preferred agent for constipation related to opioids. Hold for loose stools. Or senna-docusate (SENOKOT-S/PERICOLACE) 8.6-50 MG per tablet 2 tabletJump to med 2 tablet, Oral, 2 TIMES DAILY, First dose on Sat10/11/23 at 2100, Hold for loose stools. Preferred agent for constipation related to opioids. Hold for loose stools. Group 2: carboprost (HEMABATE) injection 250 mcgJump to med 250 mcg, Intramuscular, EVERY 15 MIN PRN, other, ONLY for uterine atony with significant bleeding POST-DELIVERY, Starting on Sat10/11/23 at 1120, Notify provider IF uterine atony and clarify with provider medication preference. Administer only if directed by provider. Give with caution in patients with asthma, active pulmonary, hepatic, renal or cardiovascular disease. And loperamide (IMODIUM) capsule 4 mgJump to med 4 mg, Oral, ONCE PRN, other, Give with first dose of carboprost (HEMABATE), Starting on Sat10/11/23 at 1120, For 1 dose, May give only after delivery. Group 3: metoclopramide (REGLAN) injection 10 mgJump to med 10 mg, Intravenous, Administer over 2 Minutes, EVERY 6 HOURS PRN, nausea, vomiting, Starting on Sat10/11/23 at 1120, This is Step 1 of OB nausea and vomiting management. If nausea is not resolved in 30 minutes, go to Step 2 (Zofran). Avoid use if patient has full bowel obstruction or perforation. Irritant. Or metoclopramide (REGLAN) tablet 10 mgJump to med 10 mg, Oral, EVERY 6 HOURS PRN, nausea and vomiting, Starting on Sat10/11/23 at 1120, This is Step 1 of OB nausea and vomiting management. If nausea is not resolved in 30 minutes, go to Step 2 (Zofran) Avoid use if patient has full bowel obstruction or perforation. Group 4: misoprostol (CYTOTEC) tablet 400 mcgJump to med 400 mcg, Oral, GIVE ONCE PRN AND REPEAT ACCORDING TO INSTRUCTIONS, post- hemorrhage, Starting on Sat10/11/23 at 1120, Administer only if directed by provider. Max administrations: 4 doses Or misoprostol (CYTOTEC) tablet 800 mcgJump to med 800 mcg, Rectal, GIVE ONCE PRN AND REPEAT ACCORDING TO INSTRUCTIONS, post- hemorrhage, Starting on Sat10/11/23 at 1120, Give rectally if unable to take oral without complications. Administer only if directed by provider. Max administrations: 4 doses. Group 5: ondansetron (ZOFRAN ODT) ODT tab 4 mgJump to med 4 mg, Oral, EVERY 6 HOURS PRN, nausea, vomiting, Starting on Sat10/11/23 at 1120, This is Step 2 of OB nausea and vomiting management. Give If nausea not resolved in 30 minutes after giving metoclopramide (REGLAN). If nausea is not resolved in 15 minutes, go to Step 3 (Compazine). With dry hands, peel back foil backing and gently remove tablet. Do not push oral disintegrating tablet through foil backing. Administer immediately on tongue and oral disintegrating tablet dissolves in seconds, then swallow with saliva. Liquid not required. Or ondansetron (ZOFRAN) injection 4 mgJump to med 4 mg, Intravenous, EVERY 6 HOURS PRN, nausea, vomiting, Administer over 2-5 Minutes, Starting on Sat10/11/23 at 1120, This is Step 2 of OB nausea and vomiting management. Give if nausea not resolved 30 minutes after giving metoclopramide (REGLAN). If nausea is not resolved in 15 minutes, go to Step 3 (Compazine). Irritant. Group 6: prochlorperazine (COMPAZINE) injection 10 mgJump to med 10 mg, Intravenous, EVERY 6 HOURS PRN, nausea, vomiting, Administer over 2 Minutes, Starting on Sat10/11/23 at 1120, This is Step 3 of OB nausea and vomiting management. Give if nausea not resolved 15 minutes after giving ondansetron (ZOFRAN). If nausea is not resolved in 30 minutes, notify provider. Or prochlorperazine (COMPAZINE) tablet 10 mgJump to med 10 mg, Oral, EVERY 6 HOURS PRN, nausea, vomiting, Starting on Sat10/11/23 at 1120, This is Step 3 of OB nausea and vomiting management. Give if nausea not resolved 15 minutes after giving ondansetron (ZOFRAN). If nausea is not resolved in 30 minutes, notify provider. Or prochlorperazine (COMPAZINE) suppository 25 mgJump to med 25 mg, Rectal, EVERY 12 HOURS PRN, nausea, vomiting, Starting on Sat10/11/23 at 1120, This is Step 3 of OB nausea and vomiting management. Give if nausea not resolved 15 minutes after giving ondansetron (ZOFRAN). If nausea is not resolved in 30 minutes, notify provider. documented in this encounter Additional Health Concerns Infection Onset Date Last Indicated Resolved Time Rule Out COVID-19 10/11/2023 10/11/2023 10/11/2023 9:17 AM CDT documented as of this encounter Care Teams Gl[facility] Pairer Relationship Specialty Start Date End Date No Ref-Primary, Physician PCP - General 10/11/23 documented as of this encounter
--- OUTSIDE RECORDS SUMMARY | 2023-10-18 15:22 | XMS_ITS | Referral Summary ---
Author Name Unknown Organization [facility] Address [address] [place] [address] Care Team Providers Care Co Founder & Ceo Name Role Phone No Ref-Primary, Physician Primary Care Provider Encounters Date Type Department Care Team Description 10/13/[address] [facility] [address] [place] [address] 10/11/2023 7:05 AM CDT - 10/13/2023 12:13 PM CDT Hospital Encounter [facility] [address] [place] [address] Brittany Fenton MD S/P section (Primary Dx) Discharge Disposition: Home or Self Care 10/11/2023 8:54 AM CDT Anesthesia Event [facility] [address] [place] [address] Mukesh Moralez MD Allen, Brian J, MD 10/11/2023 9:00 AM CDT - 10/11/2023 10:[address] [facility] [address] [place] [address] Brittany Fenton MD Repeat Section, bilateral Salpingectomy 10/08/2023 1:30 PM CDT - 10/08/2023 11:59 PM CDT Hospital Encounter [facility] [address] [place] [address] Brittany Fenton MD Chest pain Discharge Disposition: Home or Self Care 10/08/[address] [facility] [address] [place] [address] Brittany Fenton MD Chest pain (Primary Dx) 10/08/2023 Orders Only [facility] [address] [place] [address] Brittany Fenton MD Chest pain (Primary Dx) 10/08/2023 Travel 10/08/2023 12:13 PM CDT - 10/08/2023 1:29 PM CDT Hospital Encounter [facility] [address] [place] [address] Brittany Fenton MD Chest pain Discharge Disposition: Home or Self Care 10/07/2023 External Order Results [facility] [address] [place] [address] Outside, Provider 10/04/2023 Travel 10/03/2023 Orders Only [facility] [address] [place] [address] Brittany Fenton MD Pre-op exam (Primary Dx) from Last 3 Months Allergies No known active allergies Medications Medication [...] Date Chronic hypertension affecting 024 S/P 10/11/2023 Social History Tobacco Use Types Packs/Day Years Used Date Smoking Tobacco: Former Cigarettes Tobacco Cessation:Counseling Given: Not Answered Alcohol Use Standard Drinks/Week Comments Not Currently 0 (1 standard drink = 0.6 oz pur e alcohol) [place] Depression Scale Answer Date Recorded Last EPDS [...] 10/11/2023 10:38 AM CDT Plan of Treatment Not on file Procedures Procedure Name Priority Date/Time Associated Diagnosis [...] - 15.7 g/dL 10/12/2023 7:36 AM CDT [facility] Blood STRUCTURE OF LEFT UPPER LIMB / Unknown Venipuncture / Unknown 10/12/2023 6:46 AM CDT 10/12/2023 7:34 AM CDT Brittany Fenton MD LAB - BLOOD [facility] [address] Lab (1st floor, no room number) [place] [address], [facility] * Surgical Pathology Exam (10/11/2023 9:33 AM CDT) Case Report Surgical Pathology Report ? Case: [id number] ? Authorizing Provider: ??Brittany Fenton MD ?Collected: ? 10/11/2023 09:33 AM ? Ordering Location: ? [facility] ?? Received: ?10/11/2023 09:54 AM ? [facility] ? Pathologist: ? Rosa Alonzo MD ? Specimen: ?Fallopian Tube, Bilateral ? 10/14/2023 1:46 PM [facility] Final Diagnosis A. Bilateral fallopian tubes, bilateral salpingectomy: -Complete cross section of both fallopian tubes identified. -Fimbriated ends of both fallopian tubes without histopathologic abnormality. -Benign paratubal cysts. 10/14/2023 1:46 PM [facility] Clinical Information pt desires permanent sterilization 10/14/2023 1:46 PM [facility] Gross Description A(A). Fallopian Tube, Bilateral, [...] is sectioned and displays a stellate lumen. Signal Apprentice sections of the specimen are submitted as follows: A1-first described unoriented fallopian tube (inked black-fimbriated end submitted entirely) D4-I5-roqiqu described unoriented fallopian tube to include paratubal cysts (paratubal cysts and fimbriated end submitted entirely) (ROBERT Smith (ASCP) 10/14/2023 1:46 PM [facility] Microscopic Description Microscopic examination was performed. Results are incorporated into the final diagnosis. All controls stained appropriately. 10/14/2023 1:46 PM [facility] Performing Labs The technical component of this testing was completed at [facility] 10/14/2023 1:46 PM [facility] Case Images 10/14/2023 1:46 PM [facility] Tissue BOTH FALLOPIAN TUBES / Unknown Non-blood Collection / Unknown 10/11/2023 9:33 AM CDT 10/11/2023 9:54 AM CDT Brittany Fenton MD LAB - [facility] Lab [address] 1st floor, [address] [place] [address], [facility] Lab [address] [facility] Lab (1st floor, no room number) [place] [address], [facility] * Spinal Block (10/11/2023 9:01 AM CDT) Narrative Angie Beach APRN CHART SNATCHER - 10/11/2023 9:01 AM CDT Angie Beach APRN CHART SNATCHER ? 10/11/2023 ??9:02 AM Intrathecal injection Procedure [...] 0.15 mg - 10/11/2023 9:02:00 AM FOR [facility] ([facility]) ONLY: ?? Pain Team Contact information: please page the Pain Team Via Crovat. Search Pain. During daytime hours, please page the attending first. At night please page the resident first. Derrick Cottrell MD [facility] * Symptomatic COVID-19 Virus (Coronavirus) by [...] the Xpert Xpress SARS-CoV-2 Assay on the Recipharmert Instrument Systems. Additional information about this Emergency [...] COVID-19. This test was validated by the [facility]. This laboratory is certified under the Clinical Laboratory Improvement Amendments (CLIA) as qualified to perform high complexity laboratory testing. Brittany Fenton MD LAB - MICRO GENERA L ORDERABLES [facility] [address] [facility] Lab (1st floor, no room number) [place] [address], [facility] * Symptomatic Influenza A/B, RSV, & SARS-CoV2 PCR (COVID-19) Nasopharyngeal (10/11/2023 8:25 AM CDT) Influenza A PCR Negative Negative 10/11/2023 9:17 AM CDT [facility] Influenza B PCR Negative Negative 10/11/2023 9:17 AM CDT [facility] RSV PCR Negative Negative 10/11/2023 9:17 AM CDT [facility] SARS CoV2 PCR Negative Negative 10/11/2023 9:17 AM CDT [facility] Comment:NEGATIVE: SARS-CoV-2 (COVID-19) RNA not detected, presumed negative. Swab NASOPHARYNGEAL STRUCTURE / Unknown Non-blood Collection / Unknown 10/11/2023 8:25 AM CDT 10/11/2023 8:34 AM CDT [facility] - 10/11/2023 9:17 AM CDT Testing was performed using the Xpert Xpress CoV2/Flu/RSV Assay on the PrecisionDemand GeneXpert Instrument. This test should be ordered [...] management. This test was validated by the [facility]. These laboratories are certified under the Clinical Laboratory Improvement Amendments of 1988 (CLIA-88) as qualified to perform high complexity laboratory testing. Brittany Fenton MD LAB - MICRO GENERA L ORDERABLES LABORATORY [facility] Lab [address] [facility] Lab (1st floor, no room number) [place] [address], [facility] * Adult Type and Screen (10/10/2023 12:39 PM CDT) ABO/RH(D) O POS 10/10/2023 11:24 PM CDT [facility] Antibody Screen Negative Negative 10/10/2023 11:24 PM CDT U BLOOD BANK SPECIMEN EXPIRATION DATE [id number] 10/10/2023 11:24 PM CDT U BLOOD BANK Blood BLOOD SPECIMEN / Unknown Client Draw / Unknown 10/10/2023 12:39 PM CDT 10/10/2023 2:35 PM CDT Shanta Denis MD LAB - BLOOD BANK ST ORDER Performing Organization Address [facility]/ZIP Co de Phone Number U BLOOD BANK [phone] * Rapid Plasma Reagin with Reflex to Titer and Treponema Antibodies (10/10/2023 12:39 PM CDT) Rapid Plasma Reagin Nonreactive Nonreactive 10/11/2023 10:28 AM CDT [facility]/EN DO Blood BLOOD SPECIMEN / Unknown Client Draw / Unknown 10/10/2023 12:39 PM CDT 10/10/2023 2:35 PM CDT Narrative [facility]PROT/ENDO - 10/11/2023 10:28 AM CDT Biological false-positive reactions with cardiolipin-type antigens have been reported in disease such as infectious mononucleosis, leprosy, malaria, lupus erythematosus, vaccinia, and viral pneumonia. ??, autoimmune diseases, and narcotic additions may give false-positives. Pinta, yaws, bejel, and other treponemal diseases may also produce false-positive results with this test. Shanta Denis MD LAB - BLOOD ORDERAB LES [facility]PROT/ENDO Specialty Core/Prot/Endo [address] [facility] [address], [address] * (ABNORMAL) CBC with platelets (10/10/2023 12:39 PM CDT) Only the most recent of3 resultswithin the time period is included. WBC Count 14.1(H) 4.0 - 11.0 10e3/uL [...] LAB - BLOOD ORDERAB LES [facility] [address], [address] [place] [address] * EKG 12-lead, tracing only (10/08/2023 1:44 PM CDT) Systolic Blood Pressure mmHg RADIOLOGY RESULTS Diastolic Blood Pressure mmHg RADIOLOGY RESULTS Ventricular Rate 75 BPM RAD IOLOGY RESULTS Atrial Rate 75 BPM RADIOLOG Y RESULTS [place] Interval 138 ms RADIOLOG Y RESULTS QRS Duration 80 ms RADIOLO GY RESULTS QT 388 ms RADIOLOGY RESULTS QTc 433 ms RADIOLOGY RESULTS P [place] 35 degrees RADIOLOGY RESULTS R AXIS 21 degrees RADIOLOGY RESULTS T [place] 8 degrees RADIOLOGY RESULTS Interpretation ECG Sinus rhythm Normal ECG Confirmed by MD YOLY, NOELLE ([id number]) on 10/11/2023 4:21:24 PM RADIOLOGY RESULTS 10/08/2023 1:44 PM CDT 10/11/2023 4:21 PM CDT Brittany Fenton MD ECG ORDERABLES RADIOLOGY RESULTS * ECHO COMPLETE (10/08/2023 1:05 PM CDT) LVEF 55-60% CARDIOLOGY RESULTS Anatomical Region Laterality Modality Echocardiography 10/08/2023 12:2 7 PM CDT Narrative 10/08/2023 1:40 PM CDT [id number]^ELICEO^BRITTANY^Jannet [facility] Echocardiography Laboratory [address] [place] [address] Name: BÁRBARA PEREZ : 1985 Study Date: 10/08/2023 12:27 PM Age: 38 yrs Gender: Female Patient Location: [facility] Reason For Study: Chest pain Ordering [...] Procedure Note Shakeel Burrows MD - 10/08/2023 [id number]^ELICEO^BRITTANY^Jannet [facility] Echocardiography Laboratory [address] [place] [address] Name: BÁRBARA PEREZ : 1985 Study Date: 10/08/2023 12:27 PM Age: 38 yrs Gender: Female Patient Location: [facility] Reason For Study: Chest pain Ordering [...] LAB - BLOOD ORDERA BLES [facility] LAB[facility]ATORY [facility] [address], [address] [place] [address], [facility] * Creatinine (10/07/2023 2:07 PM CDT) Only [...] - BLOOD ORDERA BLES Performing Organization Address City/[facility]/ZIP Co de Phone Number [facility] [address], [address] [phone] * AST (10/07/2023 2:07 PM CDT) Only the most recent of2 resultswithin the time period is included. AST 18 0 - 45 U/L 10/07/2023 4:1 7 PM CDT [facility] Blood BLOOD SPECIMEN / Unknown Client Draw / Unknown 10/07/2023 2:07 PM CDT 10/07/2023 3:46 PM CDT Brittany Fenton MD LAB - BLOOD ORDERA BLES Performing Organization Address City/[facility]/ZIP Co de Phone Number U LABORATORY [facility] Lab [address] [facility], [address] [address] * ALT (10/07/2023 2:07 PM CDT) Only the most recent of2 resultswithin the time period is included. ALT 11 0 - 50 U/L 10/07/2023 4:1 7 PM CDT [facility] Blood BLOOD SPECIMEN / Unknown Client Draw / Unknown 10/07/2023 2:07 PM CDT 10/07/2023 3:46 PM CDT Brittany Fenton MD LAB - BLOOD ORDERA BLES [facility] [address] [facility], [address] * Extra Green Top Tube (LAB USE ONLY) (10/01/2023 11:21 AM CDT) Hold Specimen JIC 10/01/2023 4:08 PM CDT [facility] Blood BLOOD SPECIMEN / Unknown Client Draw / Unknown 10/01/2023 11:21 AM CDT 10/01/2023 3:03 PM CDT Hanna Jerome APRN [facility] LAB - BLOOD ORDE TIFFANIE [facility] LAB[facility]ATORY [facility] [address], [address] * Uric acid (10/01/2023 11:21 AM CDT) Uric Acid 4.2 2.4 - 5.7 mg/dL 10/01/2023 6:53 PM CDT [facility] LAB[facility]AT[facility] Blood BLOOD SPECIMEN / Unknown Client Draw / Unknown 10/01/2023 11:21 AM CDT 10/01/2023 3:03 PM CDT Hanna Jerome APRN [facility] LAB - BLOOD ORDE TIFFANIE [facility] LABORATORY [facility] [address], [address] * Protein random urine (10/01/2023 11:20 [...] AM CDT 10/01/2023 3:02 PM CDT Hanna Petty Queenie CARVER CNM LAB - URINE ORDE RABALEXSANDRA [facility] [address], [address] [place] [address] * HIV-1 Antibody (External Result) (03/07/2023 12:16 PM CDT) HIV 1&2 Antibody (External) Negative Nonreactive EXTERNAL LAB 03/07/2023 12:1 6 PM CDT Patient Reported LAB - HIM EXTERNAL R ESULT EXTERNAL LAB External Lab * (ABNORMAL) Group B strep PCR (03/01/2022 2:04 PM CDT) Group B Strep PCR Positive( A) Negative [...] LABORATORY - 03/03/2022 12:07 AM CDT The CepAntengoid Xpert GBS LB Assay, performed on the Magma HQ?? Instrument Systems, is a qualitative in vitro [...] or monitor treatment for GBS infections. The PrecisionDemand Xpert GBS LB Assay is intended for use in hospital, reference or state laboratory settings. The device is not intended for efinb-yd-ofku use. Ruthie Spangler DO LAB - MICRO GE NERAL ORDERABLES [facility] IDD [facility] Inf. Diseases Diag. Lab [address] [facility], [address] [place] [address], [facility] [phone] * Glucose by meter (11/22/2015 12:56 PM CDT) Glucose 91 70 - 99 mg/dL POINT OF CARE TEST, GLUCOSE 11/22/2015 12:5 6 PM CDT 11/22/2015 1:00 PM CDT Provider Unknown LAB - BEAKER POCT POINT OF CARE TEST, GLUCOSE from Last 3 Months or Most Recently Relevant to Health Maintenance Advance Directives For more information, please contact: [phone] * Full Code (Latest Code Status on File) Date Activated Date Inactivated Comments 10/11/2023 11:20 AM 10/13/2023 2:14 PM All basic a nd advanced life-sustaining interventions are performed as appropriate Question Answer Comments Code status determined by: Discussion with patie nt/ legal decision maker Care Teams Co Founder & Ceo Relationship Specialty Start Date End Date No Ref-Primary, Physician PCP - General 10/11/23
--- OUTSIDE RECORDS SUMMARY | 2023-10-18 15:22 | XMS_ITS | Encounter Summary ---
Author Name Unknown Organization [facility] Address [address] [place] [address] Care Team Providers Care Eyeglass Fitter Name Role Phone No Ref-Primary, Physician Primary Care Provider Encounter Details Date Type Department Care Team (Late st Contact Info) Description 10/13/2023 Encounter [facility] [address] [place] [address] Social History Tobacco Use Types Packs/Day Years Used Date Smoking Tobacco: Former Cigarettes Alcohol Use Standard Drinks/Week Comments Not Currently 0 (1 standard drink = 0.6 oz pur e alcohol) [place] Depression Scale Answer Date Recorded Last EPDS [...] on file documented as of this encounter Miscellaneous Notes * Note - Gertrude Tello RN - 10/13/2023 12:13 PM CDT This note was copied from a baby's chart. visit prior to discharge. at 10% weight loss at 48 hours of age. Bárbara reporting overall well but at times does not have deep latch- reinforced previous education on deep latch techniques and encouraged to break seal and re latch if narrow/tight on nipple. Bárbara reports cracked nipples- reinforced deep latch and gave mothers love nipple cream and hydrogel pads. Due to weight loss parents plan to supplement with formula via bottle at home. Encouraged pumping after breastfeed and paced bottle feeding. Offered to set up pump however Bárbara reports discharging and will start at home- has spectra and a wireless- discussed differences. Reviewed breast milk storage guidelines. All questions answered. documented in this encounter Plan of Treatment Not on file documented as of this encounter Visit Diagnoses Not on filedocumented in this encounter Care Teams Eyeglass Fitter Relationship Specialty Start Date End Date No Ref-Primary, Physician PCP - General 10/11/23 documented as of this encounter
--- OUTSIDE RECORDS SUMMARY | 2023-10-18 15:23 | XMS_ITS | Encounter Summary ---
Author Name Unknown Organization [place] Address [address] [place] [address] Care Team Providers Care Mine Motor Engineer Name Role Phone No Ref-Primary, Physician Primary Care Provider Encounter Details Date Type Department Care Team (Late st Contact Info) Description 10/03/2023 Orders Only [facility] [address] [place] [address] Brittany Cotto MD [address] [address] [place] [address] Pre-op exam (Primary Dx) Social History Tobacco Use Types Packs/Day Years Used Date Smoking Tobacco: Never Assessed Adolescent Education Answer Date Record ed Getting School Help Needed Not on file 10/02 Sex and Gender Information Value Date Recorded Sex Assigned at Not on file Gender Identity Not on file Sexual Orientation Not on file documented as of this encounter Plan of Treatment Scheduled Orders Name Type Priority Associated Diagnoses Orde r Schedule Hemoglobin Lab STAT Pre-op exam Expected: 10/10/2023 (Approximate), Expires: 10/02/2024 ABO/Rh type and screen Lab Panel STAT Pre-op exam Expected: 10/10/2023 (Approximate), Expires: 10/02/2024 Treponema Abs w Reflex to RPR and Titer Lab STAT Pre-op exam Expected: 10/10/2023 (Approximate), Expires: 10/02/2024 documented as of this encounter Visit Diagnoses Diagnosis Pre-op exam- Primary Preoperative examination, unspecified documented in this encounter Additional Health Concerns Infection Onset Date Last Indicated Resolved Time Rule Out COVID-19 10/11/2023 10/11/2023 10/11/2023 9:17 AM CDT documented as of this encounter Care Teams Mine Motor Engineer Relationship Specialty Start Date End Date No Ref-Primary, Physician PCP - General 10/11/23 documented as of this encounter
--- OUTSIDE RECORDS SUMMARY | 2023-10-18 15:23 | XMS_ITS | Encounter Summary ---
Author Name Unknown Organization [facility] Address [address] [place] [address] Care Team Providers Care Silver Miner Blasting Name Role Phone Unavailable Primary Care Provider Unavailabl e Encounter Details Date Type Department Care Team (Latest Contact Info) Description 10/08/2023 Travel Social History Tobacco Use Types Packs/Day Years Used Date Smoking Tobacco: Former Cigarettes Alcohol Use Standard Drinks/Week Comments Not Currently 0 (1 standard drink = 0.6 oz pur e alcohol) Adolescent Education Answer Date Record ed Getting School Help Needed Not on file 10/02 Comments Yes Sex and Gender Information Value Date Recorded Sex Assigned at Not on file Gender Identity Not on file Sexual Orientation Not on file documented as of this encounter Plan of Treatment Not on file documented as of this encounter Visit Diagnoses Not on filedocumented in this encounter
--- OUTSIDE RECORDS SUMMARY | 2023-10-18 15:23 | XMS_ITS | Encounter Summary ---
Author Name Unknown Organization [place] [facility] Address [address] [place] [address] Care Team Providers Care Slitter Service And Setter Name Role Phone Unavailable Primary Care Provider Unavailabl e Encounter Details Date Type Department Care Team (Latest Contact Info) Description 10/08/2023 1:30 PM CDT - 10/08/2023 11:59 PM CDT Hospital Encounter [facility] [address] [place] [address] Brittany Cotto MD [address] [place] [address] Chest pain Discharge Disposition: Home or Self Care Social [...] on file documented as of this encounter Medications at Time of Discharge [...] mouth daily documented as of this encounter Plan of Treatment Not on file documented as of this encounter Procedures Procedure Name Priority Date/Time Associated Diagnosis Comments EKG 12-LEAD, TRACING ONLY STAT 10/08/2023 1:44 PM CDT Chest pain documented in this encounter Results * EKG 12-lead, tracing only (10/08/2023 1:44 PM CDT) Systolic Blood Pressure mmHg RADIOLOGY RESULTS Diastolic Blood Pressure mmHg RADIOLOGY RESULTS Ventricular Rate 75 BPM RAD IOLOGY RESULTS Atrial Rate 75 BPM RADIOLOG Y RESULTS DC Interval 138 ms RADIOLOG Y RESULTS QRS Duration 80 ms RADIOLO GY RESULTS QT 388 ms RADIOLOGY RESULTS QTc 433 ms RADIOLOGY RESULTS P [place] 35 degrees RADIOLOGY RESULTS R AXIS 21 degrees RADIOLOGY RESULTS T [place] 8 degrees RADIOLOGY RESULTS Interpretation ECG Sinus rhythm Normal ECG Confirmed by MD YOLY, NOELLE ([id number]) on 10/11/2023 4:21:24 PM RADIOLOGY RESULTS 10/08/2023 1:44 PM CDT 10/11/2023 4:21 PM CDT Brittany Cotto MD ECG ORDERABLES RADIOLOGY RESULTS documented in this encounter Visit Diagnoses Diagnosis Chest pain Chest pain, unspecified documented in this encounter
--- OUTSIDE RECORDS SUMMARY | 2023-10-18 15:23 | XMS_ITS | Encounter Summary ---
Author Name Unknown Organization [facility] Address [address] [place] [address] Care Team Providers Care Ruby Engineer Name Role Phone Unavailable Primary Care Provider Unavailabl e Encounter Details Date Type Department Care Team (Late st Contact Info) Description 10/08/2023 Orders Only [facility] [address] [place] [address] Brittany Cotto MD [address] [address] [place] [address] Chest pain (Primary Dx) Social History Tobacco Use Types [...] on file documented as of this encounter Results * EKG 12-lead, tracing only (10/08/2023 1:44 PM CDT) Systolic Blood Pressure mmHg RADIOLOGY RESULTS Diastolic Blood Pressure mmHg RADIOLOGY RESULTS Ventricular Rate 75 BPM RAD IOLOGY RESULTS Atrial Rate 75 BPM RADIOLOG Y RESULTS SD Interval 138 ms RADIOLOG Y RESULTS QRS Duration 80 ms RADIOLO GY RESULTS QT 388 ms RADIOLOGY RESULTS QTc 433 ms RADIOLOGY RESULTS P [place] 35 degrees RADIOLOGY RESULTS R AXIS 21 degrees RADIOLOGY RESULTS T [place] 8 degrees RADIOLOGY RESULTS Interpretation ECG Sinus rhythm Normal ECG Confirmed by MD FREDERICK STEVEN ([id number]) on 10/11/2023 4:21:24 PM RADIOLOGY RESULTS 10/08/2023 1:44 PM CDT 10/11/2023 4:21 PM CDT Brittany Cotto MD ECG ORDERABLES RADIOLOGY RESULTS documented in this encounter Visit Diagnoses Diagnosis Chest pain- Primary Chest pain, unspecified documented in this encounter
--- OUTSIDE RECORDS SUMMARY | 2023-10-18 15:23 | XMS_ITS | Encounter Summary ---
Author Name Unknown Organization [facility] Address [address] [place] [address] Care Team Providers Care Psychiatric Assistant Name Role Phone Unavailable Primary Care Provider Unavailabl e Encounter Details Date Type Department Care Team (Latest Contact Info) Description 10/04/2023 Travel Social History Tobacco Use Types Packs/Day [...]
--- OUTSIDE RECORDS SUMMARY | 2023-10-18 15:23 | XMS_ITS | Encounter Summary ---
Author Name Unknown Organization [place] Address [address] [place] [address] Care Team Providers Care Claim Taker Name Role Phone No Ref-Primary, Physician Primary Care Provider Encounter Details Date Type Department Care Team (Late st Contact Info) Description 10/07/2023 External Order Results [facility] [address] [place] [address] Outside, Provider Social History Tobacco Use Types Packs/Day Years [...] Diagnoses Not on filedocumented in this encounter Additional Health Concerns Infection Onset Date Last Indicated Resolved Time Rule Out COVID-19 10/11/2023 10/11/2023 10/11/2023 9:17 AM CDT documented as of this encounter Care Teams Claim Taker Relationship Specialty Start Date End Date No Ref-Primary, Physician PCP - General 10/11/23 documented as of this encounter
--- OUTSIDE RECORDS SUMMARY | 2023-10-18 15:23 | XMS_ITS | Clinical Summary ---
Author Name Unknown Organization [facility] Address [place], [place] [address] Care Team Providers Care Amusement Park Entertainer Name Role Phone Margoth, Jerri Petty CNM Primary Care Provider [phone]- [phone] Allergies No known active allergies Medications Medication [...] Non-[facility] labs need to be entered in EPIC? Yes PERTINENT MEDS: bASA PROCEDURES: IF FGR <10% or EFW <2000 grams: Add FGRPCOM PLAN OF CARE: Original and updated POC Comments Yes Immunizations Name Administration Dates Next Due Tdap [...] ral N Brielle ng 9 9 LIANNA LLO,B SAGE BOY David servin MD Complications:-alen barbara hypertension [facility] Current Last Filed Vital Signs Vital [...] booster 01/13/2018 01/14/2008 Influenza for age 9-49 03/01/2024 Tdap Completed 01/14/2008 COVID-19 vaccine series Completed 05/17/20, 02/07/2022, 11/12/2020, Additional history exists Pneumococcal series for age 6-64 Aged Out No longer eligible based on patient's age to complete this topic Care Teams Amusement Park Entertainer Relationship Specialty Start Date End Date Jerri Justin CNM [address] [place] [phone] PCP - General Certified Nurse Client Care Specialist 05/30/23
--- OUTSIDE RECORDS SUMMARY | 2023-10-18 15:23 | XMS_ITS | Encounter Summary ---
Author Name Unknown Organization [place] Address [address] [place] [address] Care Team Providers Care Supervisor Throwing Department Name Role Phone Unavailable Primary Care Provider Unavailabl e Encounter Details Date Type Department Care Team (Late st Contact Info) Description 10/08/2023 Orders Only [facility] [address] [place] [phone] Brittany Cotto MD [address] [facility] [address] [place] [address] Chest pain (Primary Dx) Social History Tobacco [...] Type Priority Associated Diagnoses Orde r Schedule EKG 12-lead complete with read (future) EKG STAT Chest pain Expected: 10/08/2023 (Approximate), Expires: 10/07/2024 documented as of this encounter Visit Diagnoses Diagnosis Chest pain- Primary Chest pain, unspecified documented in this encounter
--- OUTSIDE RECORDS SUMMARY | 2023-10-18 15:23 | XMS_ITS | Encounter Summary ---
Author Name Unknown Organization [place] Address [address] [place] [address] Care Team Providers Care Enrollment Nurse Name Role Phone Unavailable Primary Care Provider Unavailabl e Reason for Referral * CV Testing (Urgent: 3-5 Days) - Closed Specialty Diagnoses / Procedures Referred By Contac t Referred To Contact Diagnoses Chest pain Procedures Echocardiogram Complete ZZHC TTE W/DOPPLER, COMPLETE ZZHC ECHO COMPLETE W DOPPLER W CONTRAST ZZHC ECHO COMPLETE W DOPPLER W/O CONTRAST ZZHC IV PUSH SINGLE, INITIAL SUBSTANCE ZZHC US GUIDE FOR PERICARDIOCENTESIS ZZHC ECHO MYOCARD BX ZZC INJECTION, PERFLUTREN LIPID MICROSPHERES, PER ML ZZHC STATISTIC IV PUSH SINGLE INITIAL SUBSTANCE IN ECHO MYOCARD BX IN INJECTION, PERFLUTREN LIPID MICROSPHERES, PER ML IN TTE W/DOPPLER, COMPLETE IN IV PUSH SINGLE, INITIAL SUBSTANCE IN TTE W/DOPPLER, COMPLETE IN TTE W/DOPPLER, COMPLETE HC US GUIDE FOR PERICARDIOCENTESIS HC ECHO MYOCARD BX HC IV PUSH SINGLE, INITIAL SUBSTANCE HC STATISTIC IV PUSH SINGLE INITIAL SUBSTANCE HC ECHO COMPLETE W DOPPLER W CONTRAST HC ECHO COMPLETE W DOPPLER W/O CONTRAST Melvina Fenton MD [address] [facility] [address] [place] [address] Referral ID Status Reason Start Date Expiration Date Visits Re quested Visits Authorized [id number] Closed 10/08/2023 10/07/2024 1 1 Reason for Visit * CV Testing (Urgent: 3-5 Days) - Closed Specialty Diagnoses / Procedures Referred By Contac t Referred To Contact Diagnoses Chest pain Procedures Echocardiogram Complete ZZHC TTE W/DOPPLER, COMPLETE ZZHC ECHO COMPLETE W DOPPLER W CONTRAST ZZHC ECHO COMPLETE W DOPPLER W/O CONTRAST ZZHC IV PUSH SINGLE, INITIAL SUBSTANCE ZZHC US GUIDE FOR PERICARDIOCENTESIS ZZHC ECHO MYOCARD BX ZZC INJECTION, PERFLUTREN LIPID MICROSPHERES, PER ML ZZHC STATISTIC IV PUSH SINGLE INITIAL SUBSTANCE IN ECHO MYOCARD BX IN INJECTION, PERFLUTREN LIPID MICROSPHERES, PER ML IN TTE W/DOPPLER, COMPLETE IN IV PUSH SINGLE, INITIAL SUBSTANCE IN TTE W/DOPPLER, COMPLETE IN TTE W/DOPPLER, COMPLETE HC US GUIDE FOR PERICARDIOCENTESIS HC ECHO MYOCARD BX HC IV PUSH SINGLE, INITIAL SUBSTANCE HC STATISTIC IV PUSH SINGLE INITIAL SUBSTANCE HC ECHO COMPLETE W DOPPLER W CONTRAST HC ECHO COMPLETE W DOPPLER W/O CONTRAST Melvina Fenton MD [address] [place] [address] Referral ID Status Reason Start Date Expiration Date Visits Re quested Visits Authorized [id number] Closed 10/08/2023 10/07/2024 1 1 Encounter Details Date Type Department Care Team (Latest Contact Info) Description 10/08/2023 12:13 PM CDT - 10/08/2023 1:29 PM CDT Hospital Encounter [facility] [id number] [facility] [address] [place] [address] Melvina Fenton MD [address] [place] [id number] Chest pain Discharge Disposition: Home or Self [...] Procedure Name Priority Date/Time Associated Diagnosis Comments ECHO COMPLETE STAT 10/08/2023 1:05 PM CDT Chest pain documented in this encounter Results * ECHO COMPLETE (10/08/2023 1:05 PM CDT) LVEF 55-60% CARDIOLOGY RESULTS Anatomical Region Laterality Modality Echocardiography 10/08/2023 12:2 7 PM CDT Narrative 10/08/2023 1:40 PM CDT [id number]^ELICEO^MELVINA^[facility] Echocardiography Laboratory [address] [place] [address] Name: BÁRBARA FULLER : 1985 Study Date: 10/08/2023 12:27 PM Age: 38 yrs Gender: Female Patient Location: [facility] Reason For Study: Chest pain Ordering Physician: MELVINA FENTON Referring Physician: MELVINA FENTON Performed By: Srini Laura RDCS BSA: [...] Procedure Note Shakeel Burrows MD - 10/08/2023 [id number]^ELICEO^MELVINA^[facility] Echocardiography Laboratory [address] [place] [address] Name: BRÁBARA FULLER : 1985 Study Date: 10/08/2023 12:27 PM Age: 38 yrs Gender: Female Patient Location: [facility] Reason For Study: Chest pain Ordering Physician: MELVINA FENTON Referring Physician: MELVINA FENTON Performed By: Srini Laura RDCS BSA: [...] approved by: Lizbeth Nieves 10/08/2023 01:40 PM Melvina Fenton MD CV ECHO ORDERABLES documented in this encounter Visit Diagnoses Diagnosis Chest pain Chest pain, unspecified documented in this encounter
--- OUTSIDE RECORDS SUMMARY | 2023-10-18 15:23 | XMS_ITS | Encounter Summary ---
Author Name Unknown Organization [place] Address [address] [place] [address] Care Team Providers Care Ballpoint Pens Assembler Name Role Phone No Ref-Primary, Physician Primary Care Provider Reason for Visit * Reason Comments Scheduled Section * Auth/Cert (Routine) Specialty Diagnoses / Procedures Referred By Contac t Referred To Contact cherry dipper Diagnoses Previous section Sterilization Previous section [Z98.891] Sterilization [Z30.2] Procedures NH LIGATION,FALLOPIAN TUBE W/ NH REMOVAL OF FALLOPIAN TUBE NH W/ASSIST SPLIT NH DELIVERY ONLY NH DELIVERY+ CARE Repeat Section, bilateral Salpingectomy [facility] Labor [facility] Delivery [address] [place] [address] Referral ID Status Reason Start Date Expiration Date Visits Re quested Visits Authorized [id number] 1 1 Encounter Details Date Type Department Care Team (Late st Contact Info) Description 10/11/2023 9:00 AM CDT - 10/11/2023 10:30 AM CDT Surgery [facility] [address] [place] [address] Brittany Cotto MD [address] [id number] Repeat Section, bilateral Salpingectomy Surgery Details Date/Time Status Location OR Service Patient Class Case Class Case Type Trauma Case? 10/11/23 9:00 AM Posted RH L+D LD 01 Obstetrics Surgery Admit Elective Panel 1 Procedure LRB Anes Op Region Wound Class Comments Repeat Section, bilateral Salpingectomy N/A Spinal Abdomen II-Clean Contamin ated Surgeon Surgeon Role Service Panel Brittany Cotto MD Primary Obstetrics 1 Special Needs 90min req documented in this encounter Social History Tobacco [...] Sign Reading Time Taken Comments Blood Pressure 95/53 10/11/2023 10:23 AM CDT Pulse - - Temperature 36.6 ??C (97.8 ??F) 10/11/2023 7:29 AM CD T Respiratory Rate 22 10/11/2023 7:29 AM CDT Oxygen Saturation 94% 10/11/2023 10:23 AM CDT Inhaled Oxygen Concentration - - Weight - - Height - - Body Mass Index - - documented in this encounter Discharge Instructions * [...] of your health care provider. Copyright 2020 [facility]. All rights reserved. Clinically reviewed by Maddy Vickers, RNC-OB, MSN. Bubbles [id number] - Rev 08/23. Section: What to Expect [...] your doctor if you can take an hesq-xsi-xkzvlcj medicine. If you think your pain medicine [...] Suicide and Crisis Lifeline at 988. Call 7-088-402-TALK ( ). Text HOME to 023148 to access the Crisis Text Line. Consider saving these numbers in your phone. Go to [employer] for more information or to chat online. Call your doctor or director of athletics now or seek immediate medical care if: [...] be sure to contact your doctor or director of athletics if: Your vaginal bleeding isn't decreasing. You feel sad, anxious, or hopeless for more than a few days. You are having problems with your breasts or . Where can you learn more? Go to https://www.BTR.net/patiented Enter M806 in the search box to learn more about Section: What to Expect at Home. Current as of: January 07, 2023 Content Version: 14.0 ?? [employer]. Care instructions adapted under license by your healthcare professional. If you have questions about a medical condition or this instruction, always ask your healthcare professional. [employer] disclaims any warranty or liability for your [...] Recent Labs Lab 10/12/23 0646 10/10/23 1239 // 1407 HGB 8.6* 11.5* 11.2* O POS [...] EFM: 130 +accels, no decels, mod variability Bay: quiet Assessment: 38 year old @ 38w0d [...] organs, hysterectomy, injury, risk of anesthesia including stroke/[place]/.All questions answered. Consent form signed. She is [...] Documentation Taken 10/13/2023 1037 by Kate Acosta smasher Interventions: medication (see MAR) Taken 10/13/2023 0730 by Kate Acosta smasher Interventions: medication (see MAR) Intervention: Provide Person-Centered [...] Documentation Taken 10/13/2023113 by Darya Knox RN Pain Management Interventions: medication (see MAR) Taken 10/12/20232205 by Darya Knox RN Pain Management Interventions: medication (see MAR) Intervention: Provide Person-Centered [...] or Manage Pain Recent Flowsheet Documentation Taken 10/13/2023113 by Darya Knox RN Pain Management Interventions: medication (see MAR) Taken 10/12/2023 2206 by Darya Knox RN Pain Management Interventions: medication (see MAR) Goal: Nausea and Vomiting Relief Outcome: Progressing Goal: Effective Urinary Elimination Outcome: Progressing Goal: Effective Oxygenation and Ventilation Outcome: Progressing Intervention: Optimize Oxygenation and Ventilation Recent Flowsheet Documentation Taken 10/13/2023 0114 by Darya Knox RN Head of Bed [...] and Ventilation Recent Flowsheet Documentation Taken 10/12/2023 1556 by Kate Acosta RN Head of Bed (HOB) Positioning: HOB at 30-45 degrees Taken 10/12/2023 0947 by Kate Acosta RN Head of Bed [...] Flowsheet Documentation Taken 10/11/20232236 by Darya Knox, smasher Interventions: medication (see MAR) cold applied Intervention: [...] op section Data: Bárbara Fuller transferred to 2 via wheelchair at 1255. Baby transferred via [...] Cotto MD - 10/11/2023 11:15 AM CDT [employer] Brief Operative Note Pre-operative diagnosis: Previous section [...] interview completed by pre-admitting RN or pre- op/GAS SCRUBBER OPERATOR. Reviewed by pharmacist, including [employer] dispense records, [facility] Care Everywhere, and chart review. Ru Jacobs, Pharm.D., BCPS Last Reviewed by Dionisio Sage, RN on 10/04/2023 at 12:15 PM BELL CAPTAIN Med List Medication Sig Last Dose aspirin [...] Brittany Cotto MD LAB - BLOOD ORDERA BLES LABORATORY [facility] Lab [address] [facility] Lab (1st floor, no room number) [place] [address] * Surgical Pathology Exam (10/11/2023 9:33 AM CDT) Case Report Surgical Pathology Report ? Case: [id number] ? Authorizing Provider: ??Brittany Cotto MD ?Collected: ? 10/11/2023 09:33 AM ? Ordering Location: ? [facility] ?? Received: ?10/11/2023 09:54 AM ? [facility] ? Pathologist: ? Rosa Alonzo MD ? Specimen: ?Fallopian Tube, Bilateral ? [facility]14[facility] Final Diagnosis A. Bilateral fallopian tubes, bilateral salpingectomy: -Complete cross section of both fallopian tubes identified. -Fimbriated ends of both fallopian tubes without histopathologic abnormality. -Benign paratubal cysts. 10/14/2023 1:46 PM CDT LABORATORY Clinical Information pt desires permanent sterilization [facility] Gross Description A(A). Fallopian Tube, Bilateral, [...] is sectioned and displays a stellate lumen. Surgical Garment Fitter sections of the specimen are submitted as follows: A1-first described unoriented fallopian tube (inked black-fimbriated end submitted entirely) F6-F5-calaps described unoriented fallopian tube to include paratubal cysts (paratubal cysts and fimbriated end submitted entirely) (ROBERT Smith (ASCP) 10/14/2023 1:46 PM CDT LABORATORY Microscopic Description Microscopic examination was performed. Results are incorporated into the final diagnosis. All controls stained appropriately. 10/14/2023 1:46 PM CDT LABORATORY Performing Labs The technical component of this testing was completed at [facility] Laboratory 10/14/2023 1:46 PM CDT LABORATORY Case Images 10/14/2023 1:46 PM CDT LABORATORY Tissue BOTH FALLOPIAN TUBES / Unknown Non-blood Collection / Unknown 10/11/2023 9:33 AM CDT 10/11/2023 9:54 AM CDT Brittany CLAUDIO [facility] Acute Care Lab [address] 1st floor, [address] [place] [address], [facility] Acute Care Lab [address] [facility] Lab (1st floor, no room number) [place] [address] * Symptomatic Influenza A/B, RSV, & SARS-CoV2 [...] the Xpert Xpress CoV2/Flu/RSV Assay on the [employer] Instrument. This test should be ordered for [...] validated by the [facility]. These laboratories are certified under the Clinical Laboratory Improvement Amendments of 1988 (CLIA-88) as qualified to perform high complexity laboratory testing. Brittany Cotto MD LAB - MICRO GENERA L ORDERABLES [facility] Acute Care Lab [address] [facility] Lab (1st floor, no room number) [place] [address] * Symptomatic COVID-19 Virus (Coronavirus) by PCR Nasopharyngeal (10/11/2023 8:25 AM CDT) [facility] SARS CoV2 PCR Negative Negative 10/11/2023 9:17 AM CDT LABORATORY Comment:NEGATIVE: SARS-CoV-2 (COVID-19) RNA not detected, presumed negative. Swab NASOPHARYNGEAL STRUCTURE / Unknown Non-blood Collection / Unknown 10/11/2023 8:25 AM CDT 10/11/2023 8:34 AM CDT [facility] LABORATORY - 10/11/2023 9:17 AM CDT Testing was performed using the Xpert Xpress SARS-CoV-2 Assay on the [employer]. Additional information about this Emergency [...] This test was validated by the [facility]. This laboratory is certified under the Clinical Laboratory Improvement Amendments (CLIA) as qualified to perform high complexity laboratory testing. Brittany Cotto MD LAB - MICRO GENERA L ORDERABLES [facility] Acute Care Lab [address] [facility] (1st floor, no room number) [place] [address], [facility] * HIV-1 Antibody (External Result) (03/07/2023 12:16 PM CDT) HIV 1&2 Antibody (External) Negative Nonreactive EXTERNAL LAB 03/07/2023 12:1 6 PM CDT Patient Reported LAB - HIM EXTERNAL R ESULT Performing Organization Address City/[facility]/ZIP Co de Phone Number EXTERNAL LAB External Lab * Hepatitis B Surface Antigen (External Result) (03/07/2023 12:16 PM CDT) Hepatitis B Surface Antigen (External) Negative Nonreactive EXTERNAL LAB 03/07/2023 12:1 6 PM CDT Patient Reported LAB - HIM EXTERNAL R ESULT EXTERNAL LAB External Lab * Rubella Antibody [...] Diagnosis S/P section- Primary Other postprocedural status Previous section Other postprocedural status Sterilization documented in this encounter Administered Medications Inactive [...] lock., Starting on Sat10/11/23 at 1130, Until 10/13/23 at 1414 $New Bag 10/11/2023 12:20 PM [...] $Given 10/12/2023 5:53 PM CDT 800 mg lanolin cream Topical, EVERY 1 HOUR PRN, [...] PRN, Starting on Sat10/11/23 at 1120, Until Sat10/13/23 at 1414 No Tdap Needed - Assessment: [...] or analgesic side effects. Hold while on PHOTO TECHNOLOGIST or with regular IV opioid dosing. Maximum [...] 75 mg/kg/day not to exceed 4 grams/day. 143 ($Given - Provider: Kate Acosta RN)2038 ($Given - Provider: Darya Knox RN) 0232 ($Given - Provider: Sonja Chávez RN)0855 ($Given - Provider: Kate Acosta, SAHARA)1556 ($Given - Provider: Kate Acosta RN)2206 ($Given [...] Acosta RN) 0113 ($Given - Provider: Darya Knox RN)0730 ($Given - Provider: Kate Acosta RN)1315 (Canceled [...] Kate Acosta RN)2241 ($Given - Provider: Darya Knox, SAHARA) 0452 ($Given - Provider: Sonja Chávez RN) lactated ringers BOLUS 500 mL (COMPLETED) Intravenous, 500 mL, ONCE, at 1,000 mL/hr, Administer over 30 Minutes, On Sat10/11/23 at 0800, For 1 dose, Initiate within 60 minutes of surgical procedure, Pre-procedure 0758 ($New Bag - Provider: Jordyn Espinosa RN) senna-docusate (SENOKOT-S/PERICOLACE) 8.6-50 MG per tablet 1 tablet(Linked Group 1) 1 tablet, Oral, 2 TIMES DAILY, First dose on Sat10/11/23 at 2100, If no bowel movement in 24 hours, increase to 2 tablets PO. Hold for loose stools. Preferred agent for constipation related to opioids. Hold for loose stools. 2038 ($Given - Provider: Darya Knox RN) 0855 ($Given - Provider: Kate Acosta, SAHARA)220 (See Alternative - Provider: Darya Knox RN) [...] line 1220 (Not Given - Provider: Jordyn Espinosa RN - Reason: IV Infusing)2241 ($Given - Provider: Darya Knox RN) 0040 ($Given - Provider: Sonja Chávez RN)0630 (Canceled Entry - Provider: Sonja Chávez RN)1538 [...] RN)0939 (Paused - Provider: Angie Beach APRN HAND RIGGER - Comment: Switch to gravity)0940 ($New Bag - Provider: Angie Beach APRN HAND RIGGER)1019 (Anesthesia Volume Adjustment - Provider: Angie Beach [...] or analgesic side effects. Hold while on PHOTO TECHNOLOGIST or with regular IV opioid dosing. Maximum [...] 12 HOURS PRN, nausea, vomiting, Starting on 10/11/23 at 1120, This is Step 3 of OB nausea and vomiting management. Give if nausea not resolved 15 minutes after giving ondansetron (ZOFRAN). If nausea is not resolved in 30 minutes, notify provider. documented in this encounter Additional Health Concerns Infection Onset Date Last Indicated Resolved Time Rule Out COVID-19 10/11/2023 10/11/2023 10/11/2023 9:17 AM CDT documented as of this encounter Care Teams Ballpoint Pens Assembler Relationship Specialty Start Date End Date No Ref-Primary, Physician PCP - General 10/11/23 documented as of this encounter
--- NOTE | 2023-10-18 17:00 | P.LACCB_ITS ---
Consult Note - Mom Date of Visit Date of visit: 10/18/23 wireless sales consultant: Sherrill Calle Visit Code: Visit Patient's Information Phone number: [phone] : 2 Para: 2 Allergies No Known Drug Allergies Allergy (Verified 09/30/23 14:37) Mother's Medical History: Medical History (Updated 08/15/23 @ 16:27 by Florina Johnson PA-C) CHTN Delivery Information Delivery type: Repeat Section Weeks Gestation: 38.0 Gestational Age: AGA Weight: 3.16 kg Discharge Weight: 2.98 kg Baby's Information Baby's Age at Visit: 7 days Baby's Provider or Clinic: Dr. Carpio Jaundice: No Reason for Consult Reason for Consult: not latching well, concern for weight gain Current Frequency of Day Feedings: every 2 - 3 hours around the clock Both Breasts: Yes Supplementing EMB Supplement: Yes (POC attempt) Formula Supplement: No Baby Elimination Number of Wet Diapers a Day: 6 - 8/day Number of BM a Day: 6 - 8/day Breast/Nipple Condition Breast Information: WNL Maternal Nipple Condition - Left: Common Nipple Maternal Nipple Condition - Right: Common Nipple Sore Nipples: No Onsite Pre-Feed weight: 2.85 kg Post-Feed weight: 2.928 kg Milk Transferred (mL): 78 Assessments/Interventions Assessments/Interventions: Met with mom and this now 7 day old ex- term AGA baby for consult. Mom reports for the past several days baby hasn?t been latching well and she doesn?t seem satisfied after nursing. Baby is nursing every 2 ? 3 hours and feedings can last up to 45 minutes. Nursing is a little painful as baby won?t open when mom tries to unlatch her. Baby often doesn?t seem satisfied so POC have attempted to offer a bottle of EBM but baby has a very hard time with this, especially if mom tries to offer the supplement. Mom is only pumping occasionally and gets 1 ? 2 o z total each time. Breasts WNL- symmetrical with rounded lower quadrants, intramammary distance is < 1.5 inches. Nipples are everted and don?t flatten or retract on compression, no damage noted. Baby hasn?t gained or lost weight since her NB visit on 10/15 and she?s still 10% below BW. Mom denies any caput/cephalohematoma at delivery. She states baby prefers to turn her head to the right but has equal ROM when moving her extremities. Baby?s palate is a little elevated. Her upper frenulum appears to be WNL. The tongue extends pas the gumline when sucking on a finger and baby has a strong suck. The tongue also has fairly good lateralization with some canoeing. Her lower frenulum wasn?t visualized, posterior? Mom latched baby to the left side in the cross cradle hold and the latch was fairly wide but mom thought it was a little pinchy. Demonstrated how to unlatch baby while protecting her nipple and then to exaggerate pointing her nipple to baby?s nose. When she attempted to latch baby again, it was wider and mom was more comfortable. For the first few minutes, swallowing was heard. Baby needed some stimulation to stay awake, gave mom some other things to look for that can be reassuring for a nutritive suckle if she doesn?t hear much swallowing. Baby nursed about 10 minutes then pulled back and mom became uncomfortable. She unlatched baby, woke her up, and offered that side again. Mom did the same thing on the right and after about at 30 minute session baby had transferred 70 ml. Baby was still giving hunger cues and mom wanted to try a bottle but we were unsuccessful. Baby couldn?t take the EBM for either mom?s bottle nipple or the hospital nipple. Suggested mom put her back to breast and mom nursed on the left side for 5 ? 7 more minutes. Baby transferred 8 ml for a total of 78 ml. Reviewed with mom that this is an appropriate amount for a baby her age. Plan: 1. Continue to nurse ALD or at least every three hours for now. Offer both sides like you did in clinic and work to keep baby awake and actively suckling. 2. If baby still seems hungry after nursing, can try supplementing but mom may need to leave the room or she could try to bait and switch her. Also suggested she just offer the breast again like she did in clinic. 3. Suggested mom pump to comfort if needed after nursing sessions. Pump to empty if she plans on trying to offer the bottle. 4. Will f/u with an RN weight check on 08/22 or 08/23 and she has a 2 week WCC at the end of next week. Will f/u by phone with mom on 10/24 to see how things are going. Meds Home Medications and Allergies Home Medications Medication Instructions Recorded Confirmed Type vitamin#30 30 mg iron-10 cap PO 03/07/23 09/30/23 History mg iron-folic acid 1 mg-omg3 capsule aspirin 81 mg tablet,delayed 81 mg PO QDAY 04/29/23 09/30/23 History release acetaminophen 325 mg tablet 325 mg PO ONCE PRN 07/22/23 09/30/23 History (Tylenol) magnesium 200 mg tablet 200 mg PO BID 09/19/23 09/30/23 History Allergies Allergy/AdvReac Type Severity Reaction Status Date / Time No Known Drug Allergies Allergy Verified 09/30/23 14:37
== END 2023-10-18 15:19 | disposition home or self-care (01) ==
LOC: OB LAC 15:20
PROVIDERS: Visit Provider Obstetrics & Gynecology
DX: Z39.1 Encounter for care and examination of lactating mother (principal)
CPT/HCPCS: G0463

== ENCOUNTER 2023-11-22 09:20 | Outpatient (CLI) | payer BC, SELFPAY ==
--- OUTSIDE RECORDS SUMMARY | 2023-11-26 20:59 | XMS_ITS | Clinical Summary ---
Author Organization [place] Address [address] [place] [address] Care Team Providers Care Associate Director Regulatory Affairs Name Role Phone No Ref-Primary, Physician Primary [...] mouth daily Active acetaminophen (TYLENOL) 325 MG tabletIndications:S/P section Take 3 tablets (975 mg) by mouth every 6 hours 10/13/2023 Active ibuprofen (ADVIL/MOTRIN) 800 MG tabletIndications:S/P section Take 1 tablet (800 mg) by mouth every 6 hours 10/13/2023 Active oxyCODONE (ROXICODONE) 5 MG tabletIndications:S/P section Take 1 tablet (5 mg) by mouth every 4 hours as needed 8 tablet 10/13/2023 Active Active Problems Problem Noted Date Diagnosed Date Chronic hypertension affecting 024 S/P 10/11/2023 Encounters Date Type Department Care Team Description 10/13/2023 Encounter [facility] [address] [place] [address] 10/11/2023 9:00 AM CDT - 10/11/2023 10:30 AM CDT Surgery [facility] [address] [place] [address] Brittany Fenton MD Repeat Section, bilateral Salpingectomy 10/11/2023 8:54 AM CDT Anesthesia Event [facility] [address] [place] [address] Mukesh Moralez MD Allen, Brian J, MD 10/11/2023 7:05 AM CDT - 10/13/2023 12:13 PM CDT Hospital Encounter [facility] [address] [place] [address] Brittany Fenton MD S/P section (Primary Dx) Discharge Disposition: Home or Self Care 10/08/2023 1:30 PM CDT - 10/08/2023 11:59 PM CDT Hospital Encounter [facility] [address] [place] [address] [address] [place] [address] Brittany Fenton MD Chest pain Discharge Disposition: Home or Self Care 10/08/2023 12:13 PM CDT - 10/08/2023 1:29 PM CDT Hospital Encounter [facility] [id number] [place] [address] [address] [place] [address] Brittany Fenton MD Chest pain Discharge Disposition: Home or Self Care 10/08/2023 Orders Only [address] [place] [address] Brittany Fenton MD Chest pain (Primary Dx) 10/08/2023 Orders Only [facility] [address] [place] [address] Brittany Fenton MD Chest pain (Primary Dx) 10/08/2023 Travel 10/07/2023 External Order Results [facility] [address] [place] [phone] Outside, Provider 10/04/2023 Travel 10/03/2023 Orders Only [facility] [address] [place] [address] Brittany Fenton MD Pre-op exam (Primary Dx) from Last 3 Months Social History Tobacco Use Types Packs/Day Years Used Date Smoking Tobacco: Former Cigarettes Tobacco Cessation:Counseling Given: Not Answered Alcohol Use Standard Drinks/Week Comments Not Currently 0 (1 standard drink = 0.6 oz pur e alcohol) [place] Depression Scale Answer Date Recorded Last EPDS [...] CDT Brittany Fenton MD LAB - BLOOD [facility] LABORATORY [facility] Acute Care Lab [address] [facility] (1st floor, no room number) [place] [address] * Surgical Pathology Exam (10/11/2023 9:33 AM CDT) Case Report Surgical Pathology Report ? Case: [id number] ? Authorizing Provider: ??Brittany Fenton MD ?Collected: ? 10/11/2023 09:33 AM ? Ordering Location: ? [facility] ?? Received: ?10/11/2023 09:54 AM ? Birthplace [...] is sectioned and displays a stellate lumen. Cash Checker sections of the specimen are submitted as follows: A1-first described unoriented fallopian tube (inked black-fimbriated end submitted entirely) U6-V8-sewaar described unoriented fallopian tube to include paratubal cysts (paratubal cysts and fimbriated end submitted entirely) (ROBERT Smith (ASCP) 10/14/2023 1:46 PM CDT LABORATORY Microscopic Description Microscopic examination was performed. Results are incorporated into the final diagnosis. All controls stained appropriately. 10/14/2023 1:46 PM CDT LABORATORY Performing Labs The technical component of this testing was completed at [facility] Laboratory 10/14/2023 1:46 PM CDT LABORATORY Case Images 10/14/2023 1:46 PM CDT LABORATORY Tissue BOTH FALLOPIAN TUBES / Unknown Non-blood Collection / Unknown 10/11/2023 9:33 AM CDT 10/11/2023 9:54 AM CDT Brittany [facility] LABORATORY [facility] Acute [facility] Lab [address]st floor, [address] [place] [address], [facility] LABORATORY [facility] Acute Care Lab [address] [facility] (1st floor, no room number) [place] [address] * Spinal Block (10/11/2023 9:01 AM CDT) Narrative Angie Beach APRN AUTO BODY SHOP MANAGER - 10/11/2023 9:01 AM CDT Angie Beach APRN AUTO BODY SHOP MANAGER ? 10/11/2023 ??9:02 AM Intrathecal injection Procedure [...] 0.15 mg - 10/11/2023 9:02:00 AM FOR [facility] ([facility]) ONLY: ?? Pain Team Contact information: please page the Pain Team Via FIGS. Search Pain. During daytime hours, please page the attending first. At night please page the resident first. Derrick Cottrell MD [place] ANESTHESIA * Symptomatic COVID-19 Virus (Coronavirus) by [...] the Xpert Xpress SARS-CoV-2 Assay on the [employer]. Additional information about this Emergency [...] COVID-19. This test was validated by the [facility]. This laboratory is certified under the Clinical Laboratory Improvement Amendments (CLIA) as qualified to perform high complexity laboratory testing. Brittany Fenton MD LAB - MICRO GENERA L ORDERABLES [facility] Acute Care Lab [address] [facility] (1st floor, no room number) [place] [address], [facility] * Symptomatic Influenza A/B, RSV, & SARS-CoV2 PCR (COVID-19) Nasopharyngeal (10/11/2023 8:25 AM CDT) Pathologist [facility] Influenza A PCR Negative Negative 10/11/2023 9:17 [...] the Xpert Xpress CoV2/Flu/RSV Assay on the [employer] GeneXpert Instrument. This test should be ordered [...] This test was validated by the [facility]. These laboratories are certified under the Clinical Laboratory Improvement Amendments of 1988 (CLIA-88) as qualified to perform high complexity laboratory testing. Brittany Fenton MD LAB - MICRO GENERA L ORDERABLES [facility] Acute Care Lab [address] Lab (1st floor, no room number) [place] [address], [facility] * Adult Type and Screen (10/10/2023 12:39 PM CDT) ABO/RH(D) O POS 10/10/2023 11:24 PM CDT [facility] BLOOD BANK Antibody Screen Negative Negative 10/10/2023 11:24 PM CDT [facility] BLOOD BANK SPECIMEN EXPIRATION DATE [id number] 10/10/2023 11:24 PM CDT [facility] BLOOD BANK Blood BLOOD SPECIMEN / Unknown Client Draw / Unknown 10/10/2023 12:39 PM CDT 10/10/2023 2:35 PM CDT Shanta Denis MD LAB - BLOOD BANK TE ST ORDER U BLOOD BANK [address] [place] [address], [facility] * Rapid Plasma Reagin with Reflex to Titer and Treponema Antibodies (10/10/2023 12:39 PM CDT) Pathologist [facility] Rapid Plasma Reagin Nonreactive Nonreactive 10/11/2023 10:28 [...] ORDERAB LES SPECIALTY CORE/PROT/ENDO Specialty Core/Prot/Endo [address] [facility] [address] [facility], Room 3-[address] * (ABNORMAL) CBC with platelets (10/10/2023 12:39 PM CDT) Only the most recent of3 resultswithin the time period is included. [facility] WBC Count 14.1(H) 4.0 - 11.0 10e3/uL [...] LAB - BLOOD ORDERAB LES UU LABORATORY [facility] Core Lab [address] [facility], Room [address] [place] [address] * EKG 12-lead, tracing only (10/08/2023 1:44 PM CDT) Systolic Blood Pressure mmHg RADIOLOGY RESULTS Diastolic Blood Pressure mmHg RADIOLOGY RESULTS Ventricular Rate 75 BPM RAD IOLOGY RESULTS Atrial Rate 75 BPM RADIOLOG Y RESULTS NC Interval 138 ms RADIOLOG Y RESULTS QRS Duration 80 ms RADIOLO GY RESULTS QT 388 ms RADIOLOGY RESULTS QTc 433 ms RADIOLOGY RESULTS P Enterprise 35 degrees RADIOLOGY RESULTS R AXIS 21 degrees RADIOLOGY RESULTS T Enterprise 8 degrees RADIOLOGY RESULTS Interpretation ECG Sinus rhythm Normal ECG Confirmed by MD YOLY, NOELLE ([id number]) on 10/11/2023 4:21:24 PM RADIOLOGY RESULTS 10/08/2023 1:44 PM CDT 10/11/2023 4:21 PM CDT Brittany Fetnon MD ECG ORDERABLES RADIOLOGY RESULTS * ECHO COMPLETE (10/08/2023 1:05 PM CDT) LVEF 55-60% CARDIOLOGY RESULTS Anatomical Region Laterality Modality Echocardiography 10/08/2023 12:2 7 PM CDT Narrative 10/08/2023 1:40 PM CDT [id number]^ELICEO^BRITTANY^[facility] Echocardiography Laboratory [address] [place] [address] Name: BÁRBARA EPREZ : 1985 Study Date: 10/08/2023 12:27 PM Age: 38 yrs Gender: Female Patient Location: [facility] Reason For Study: Chest pain Ordering [...] Procedure Note Shakeel Burrows MD - 10/08/2023 [id number]^ELICEO^BRITTANY^[facility] Echocardiography Laboratory [address] [place] [address] Name: BÁRBARA PEREZ : 1985 Study Date: 10/08/2023 12:27 PM Age: 38 yrs Gender: Female Patient Location: [facility] Reason For Study: Chest pain Ordering [...] T, High Sensitivity (10/07/2023 3:27 PM CDT) [facility] Troponin T, High Sensitivity <6 <=14 ng/L [...] - BLOOD ORDERA BLES Performing Organization Address City/[facility]/ZIP Co de Phone Number U LABORATORY [facility] Core Lab [address] [facility], [facility] [address] * Creatinine (10/07/2023 2:07 PM CDT) Only [...] MD LAB - BLOOD ORDERA BLES LABORATORY [facility] [address] [facility], [address] * AST (10/07/2023 2:07 PM CDT) Only the most recent of2 resultswithin the time period is included. AST 18 0 - 45 U/L 10/07/2023 4:1 7 PM CDT LABORATORY Blood BLOOD SPECIMEN / Unknown Client Draw / Unknown 10/07/2023 2:07 PM CDT 10/07/2023 3:46 PM CDT Brittany Fenton MD LAB - BLOOD ORDERA BLES LABORATORY [facility] [address] [facility], [address], [place] [address] [place] [address] * ALT (10/07/2023 2:07 PM CDT) Only the most recent of2 resultswithin the time period is included. ALT 11 0 - 50 U/L 10/07/2023 4:1 7 PM CDT LABORATORY Blood BLOOD SPECIMEN / Unknown Client Draw / Unknown 10/07/2023 2:07 PM CDT 10/07/2023 3:46 PM CDT Brittany Fenton MD LAB - BLOOD ORDERA BLES LABORATORY [facility] [address] [facility], [address] [address] [place] [address] * Extra Green Top Tube (LAB USE ONLY) (10/01/2023 11:21 AM CDT) Hold Specimen JIC 10/01/2023 4:08 PM CDT LABORATORY Blood BLOOD SPECIMEN / Unknown Client Draw / Unknown 10/01/2023 11:21 AM CDT 10/01/2023 3:03 PM CDT Hanna Jerome APRN, CNM LAB - BLOOD ORDE TIFFANIE LABORATORY [facility] [address] [facility], Room [address] [address] * Uric acid (10/01/2023 11:21 AM CDT) Pathologist [facility] Uric Acid 4.2 2.4 - 5.7 mg/dL 10/01/2023 6:53 PM CDT UU LABORATORY Blood BLOOD SPECIMEN / Unknown Client Draw / Unknown 10/01/2023 11:21 AM CDT 10/01/2023 3:03 PM CDT Hanna Jovanny Queenie CARVER [facility] LAB - BLOOD ORDE TIFFANIE UU LABORATORY [facility] [address] [facility], [address] [id number] * Protein random urine (10/01/2023 11:20 AM CDT) [facility] Total Protein Urine mg/dL 6.4 mg/dL 10/01/2023 [...] 10/01/2023 3:02 PM CDT Hanna Jerome APRN [facility] LAB - URINE ORDE TIFFANIE U LABORATORY [facility] [address] [facility], [address] [address] [place] [address] * HIV-1 Antibody (External Result) (03/07/2023 12:16 PM CDT) [facility] HIV 1&2 Antibody (External) Negative Nonreactive EXTERNAL [...] LABORATORY - 03/03/2022 12:07 AM CDT The [employer] Xpert GBS LB Assay, performed on the [employer], is a qualitative in vitro diagnostic [...] settings. The device is not intended for xoyvf-ip-eqdy use. Ruthie Spangler DO LAB - MICRO GE NERAL ORDERABLES UU IDD LABORATORY [facility] Inf. Diseases Diag. Lab [address] [facility], [address] [place] [address], [facility] [phone] * Glucose by meter (11/22/2015 12:56 PM CDT) Glucose 91 70 - 99 mg/dL POINT OF CARE TEST, GLUCOSE 11/22/2015 12:5 6 PM CDT 11/22/2015 1:00 PM CDT Provider Unknown LAB - BEAKER POCT POINT OF CARE TEST, GLUCOSE from Last 3 Months or Most Recently Relevant to Health Maintenance Advance Directives For more information, please contact: [phone] * Full Code (Latest Code Status on File) Date Activated Date Inactivated Comments 10/11/2023 11:20 AM 10/13/2023 2:14 PM All basic a nd advanced life-sustaining interventions are performed as appropriate Question Answer Comments Code status determined by: Discussion with patie nt/ legal decision maker Care Teams Associate Director Regulatory Affairs Relationship Specialty Start Date End Date No Ref-Primary, Physician PCP - General 10/11/23
--- OUTSIDE RECORDS SUMMARY | 2023-11-26 20:59 | XMS_ITS | Clinical Summary ---
Author Organization [facility] Address [address] [place] [address] Care Team Providers Care Underwriting Specialist Name Role Phone Unavailable Primary Care Provider Unavailabl e Source Comments Patient records contain information from all sites at [facility]. For routine questions regarding patient records, call [phone] during business hours, M-F 8:00 AM - 5:00 PM Central Time. Record requests for emergency care only can be directed to [phone] at any time.[facility] Active Problems Problem Noted Date Diagnosed Date Gestational Proteinuria First Trimester 09/30/19 24 Comments Yes Encounters Date Type Department Care Team Description 09/30/2023 2:30 PM CDT External Outreach Division of Nephrology and Hypertension in [place], [place] [address] [place] [address] Abhishek Bullock Jr., D.O. Gestational Proteinuria First Trimester (HCC) (Primary Dx) from Last 3 Months Social [...]
--- OUTSIDE RECORDS SUMMARY | 2023-11-26 20:59 | XMS_ITS | Encounter Summary ---
Author Organization [facility] Address [address] [place] [address] Care Team Providers Care Liquor Bridge Operator Helper Name Role Phone Unavailable Primary Care Provider Unavailabl e Reason for Visit * Appointment Request (Routine) - Closed Specialty Diagnoses / Procedures Referred By Sultana t Referred To Contact Nephrology and Hypertension Fallon Rueda M.D. [address] [place] [address] Referral ID Status Reason Start Date Expiration Date Visits Re quested Visits Authorized [id number] Closed 08/15/2023 08/14/2024 1 1 Encounter Details Date Type Department Care Team (Latest Contact Info) Description 08/20/2023 2:30 PM INSEAMER External Outreach Division of Nephrology and Hypertension in [place], [place] [address] [place] [phone] Liliana [place] M.D., Ph.D. [address] [place] [phone] Proteinuria (Primary Dx); With Personal History Gestational [...] Comments Blood Pressure 130/80 08/20/2023 3:24 PM INSEAMER Pulse 90 08/20/2023 3:24 PM INSEAMER Temperature - - Respiratory Rate - - [...] She is monitored by our colleagues in [employer]. 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 She is expected to deliver mid-September. [...] Correa M.D., Ph.D. CT CT Job ID: [id number] AMER documented in this encounter Plan of Treatment Not on file documented as of this encounter Visit Diagnoses Diagnosis Proteinuria- Primary With Personal History Gestational Hypertension (HCC) documented in this encounter
--- OUTSIDE RECORDS SUMMARY | 2023-11-26 20:59 | XMS_ITS | Encounter Summary ---
Author Organization [facility] Address [address] [place] [address] Care Team Providers Care Black Ash Worker Name Role Phone Unavailable Primary Care Provider Unavailabl e Reason for Visit * Appointment Request (Routine) - Closed Specialty Diagnoses / Procedures Referred By Contjulia t Referred To Contact Nephrology and Hypertension Referral ID Status Reason Start Date Expiration Date Visits Re quested Visits Authorized [id number] Closed 08/29/2023 08/28/2024 1 1 Encounter Details Date Type Department Care Team (Latest Contact Info) Description 09/30/2023 2:30 PM CDT External Outreach Division of Nephrology and Hypertension in [place], [place] [address] [place] [phone] Abhishek Bullock Jr., D.O. [address] [place] [phone] Gestational Proteinuria First Trimester (HCC) (Primary Dx) [...] Provider: DR Sam SUBJECTIVE REASON FOR VISIT [facility] Follow-up regards proteinuria [...] a on the 10 of October, likely [facility] where there is a intensive [...]
--- OUTSIDE RECORDS SUMMARY | 2023-11-26 20:59 | XMS_ITS ---
Author Organization [facility] Address [address] [place] [address] Care Team Providers Care Hotel Concierge Name Role Phone Unavailable Unavailable Unavailable Surgery Details Not on file Complications Check Surgery Details section. Procedure Estimated Blood Loss Check Surgery Details section. Procedure Findings Check Surgery Details section. Procedure Specimens Taken Check Surgery Details section.
--- OUTSIDE RECORDS SUMMARY | 2023-11-26 20:59 | XMS_ITS | Referral Summary ---
Author Organization [facility] Address [address] [place] [address] Care Team Providers Care Jewelry Racker Name Role Phone Unavailable Primary Care Provider Unavailabl e Source Comments Patient records contain information from all sites at [facility]. For routine questions regarding patient records, call [phone] during business hours, M-F 8:00 AM - 5:00 PM Central Time. Record requests for emergency care only can be directed to [phone] at any time.[facility] Encounters Date Type Department Care Team Description 09/30/2023 2:30 PM CDT External Outreach Division of Nephrology and Hypertension in [place], [place] [address] [place] [address] Abhishek Bullock Jr., D.O. Gestational Proteinuria First Trimester (HCC) (Primary Dx) from Last 3 Months Active Problems Problem [...]
--- OUTSIDE RECORDS SUMMARY | 2023-11-26 21:00 | XMS_ITS | Clinical Summary ---
Author Organization [facility] Address [place], [place] [address] Care Team Providers Care Land Classifier Name Role Phone Timmy Justinjohn Petty CNM Primary Care Provider [phone]- [phone] Allergies No known active allergies Medications Medication [...] at delivery) 2021 - Term LTCS for KEVONHT, ZEESHANTN, was on labetalol and stopped 6 weeks [...] Encounters Date Type Department Care Team Description 11/22/2023 Lab Requisition [facility] [phone] Darya Thomson MD from Last 3 Months Immunizations Name Administration [...] David servin MD Complications:-alen barbara hypertension Delivery Location:[facility] 1999) Current Last Filed Vital Signs Vital [...] Procedure Name Priority Date/Time Associated Diagnosis Comments LAB TRACKING EVENT Routine 11/22/2023 12:00 PM CDT from Last 3 Months Results * LAB TRACKING EVENT (11/22/2023 12:00 PM CDT) Other (Other) Client Collect / Unknown 11/22/2023 12:00 PM CDT 11/22/2023 3:04 PM CDT Darya Thomson MD LAB BILL ONLY [facility] [address] [place] [id number], from Last 3 Months Care Teams Land Classifier Relationship Specialty Start Date End Date Jerri Justin CNM [address] [place] [id number] PCP - General Certified Nurse Help Desk Administrator 05/30/23
--- OUTSIDE RECORDS SUMMARY | 2023-11-26 21:00 | XMS_ITS | Encounter Summary ---
Author Organization [facility] Address [address] [place] [address] Care Team Providers Care Shade Maker Name Role Phone Unavailable Primary Care Provider Unavailabl e Encounter Details Date Type Department Care Team (Late st Contact Info) Description 10/08/2023 Orders Only [facility] [id number] [facility] [address] [place] [phone] Brittany Cotto MD [address] [address] [place] [address] Chest pain (Primary Dx) Social History Tobacco [...] Atrial Rate 75 BPM RADIOLOG Y RESULTS AR Interval 138 ms RADIOLOG Y RESULTS QRS Duration 80 ms RADIOLO GY RESULTS QT 388 ms RADIOLOGY RESULTS QTc 433 ms RADIOLOGY RESULTS P [place] 35 degrees RADIOLOGY RESULTS R AXIS 21 degrees RADIOLOGY RESULTS T [place] 8 degrees RADIOLOGY RESULTS Interpretation ECG Sinus rhythm Normal ECG Confirmed by MD FREDERICK STEVEN ([id number]) on 10/11/2023 4:21:24 PM RADIOLOGY RESULTS 10/08/2023 1:44 PM CDT 10/11/2023 4:21 PM CDT Brittany Cotto MD ECG ORDERABLES RADIOLOGY RESULTS documented in this encounter Visit Diagnoses Diagnosis Chest pain- Primary Chest pain, unspecified documented in this encounter
--- OUTSIDE RECORDS SUMMARY | 2023-11-26 21:00 | XMS_ITS | Encounter Summary ---
Author Organization [facility] Address [address] [place] [id number] Care Team Providers Care Crm Campaign Manager Name Role Phone No Ref-Primary, Physician Primary Care Provider Encounter Details Date Type Department Care Team (Late st Contact Info) Description 10/07/2023 External Order Results [facility] [address] [place] [address] Outside, Provider Social History Tobacco Use Types [...] documented as of this encounter Care Teams Crm Campaign Manager Relationship Specialty Start Date End Date No Ref-Primary, Physician PCP - General 10/11/23 documented as of this encounter
--- OUTSIDE RECORDS SUMMARY | 2023-11-26 21:00 | XMS_ITS | Encounter Summary ---
Author Organization [facility] Address [address] [place] [id number] Care Team Providers Care Central Lab Technician Name Role Phone No Ref-Primary, Physician Primary Care Provider Encounter Details Date Type Department Care Team (Late st Contact Info) Description 10/13/2023 Encounter [facility] [address] [place] [address] Social History Tobacco Use Types Packs/Day Years Used Date Smoking Tobacco: Former Cigarettes Alcohol Use Standard Drinks/Week Comments Not Currently 0 (1 standard drink = 0.6 oz pur e alcohol) [place] Depression Scale Answer Date Recorded Last EPDS [...] encounter Miscellaneous Notes * Note - Gertrude Tello, SAHARA - 10/13/2023 12:13 PM CDT This note was copied from a baby's chart. visit prior to discharge. Infant at 10% weight loss at 48 hours [...] on filedocumented in this encounter Care Teams Central Lab Technician Relationship Specialty Start Date End Date No Ref-Primary, Physician PCP - General 10/11/23 documented as of this encounter
--- OUTSIDE RECORDS SUMMARY | 2023-11-26 21:00 | XMS_ITS | Encounter Summary ---
Author Organization [facility] Address [address] [place] [id number] Care Team Providers Care Non Clinical Advisor Name Role Phone No Ref-Primary, Physician Primary Care Provider Reason for Visit * Reason Comments Scheduled Section * Auth/Cert (Routine) Specialty Diagnoses / Procedures Referred By Sultana t Referred To Contact television picture tube rebuilder Diagnoses Previous section Sterilization Previous section [Z98.891] Sterilization [Z30.2] Procedures VT LIGATION,FALLOPIAN TUBE W/ VT REMOVAL OF FALLOPIAN TUBE VT W/ASSIST SPLIT VT DELIVERY ONLY VT DELIVERY+ CARE Repeat Section, bilateral Salpingectomy Rh Labor And Delivery [address] [place] [address] Referral ID Status Reason Start Date Expiration Date Visits Re quested Visits Authorized [id number] 1 1 Encounter Details Date Type Department Care Team (Latest Contact Info) Description 10/11/2023 7:05 AM CDT - 10/13/2023 12:13 PM CDT Hospital Encounter [facility] [address] [place] [id number] Brittany Cotto MD [address] [id number] S/P section (Primary Dx) Discharge Disposition: Home or Self Care Social History Tobacco Use Types Packs/Day Years Used Date Smoking Tobacco: Former Cigarettes Tobacco Cessation:Counseling Given: Not Answered Alcohol Use Standard Drinks/Week Comments Not Currently 0 (1 standard drink = 0.6 oz pur e alcohol) [place] Depression Scale Answer Date Recorded Last EPDS [...] AM CDT documented in this encounter Discharge Summaries * Brittany Cotto MD - 10/13/2023 12:13 PM CDT [facility] Discharge Summary Bárbara Fuller Age: [age] year old Date of : 1985 Date of Admission: 10/11/2023 Date of Discharge: 10/13/23 Admitting Physician: Brittany Cotto MD Discharge Physician: Lupe Fishman MD Admit Dx: - Intrauterine at 38w0d - CHTN - history of prior - GBS+ - proteinuira - AMA Discharge Dx: - Same as above, s/p repeat low transverse section - acute blood loss anemia- iron Procedures: - repeat low transverse section with 2 layer closure via Pfannenstiel incision - bilateral salpingectomy Admit HPI: Ms. Bárbara Fuller is a 38 year old at 38w0d who was admitted on 10/11/2023 for repeat section. Please see her admit H&P for full details of her PMH, PSH, Meds, Allergies and exam on admit. Hospital course: After discussion of risk and and benefits and signing informed consent the patient was taken to theoperating room for repeat section. EBL from the delivery was 1228ml. Please see her Section Operative Note for full details regarding her delivery. Her postoperative course was uncomplicated. On POD#2, she was meeting all of her goals and deemed stable for discharge. She was voiding without difficulty, tolerating a regular diet without nausea and vomiting, her pain was well controlled on oral pain medicines and her lochia was appropriate. Her hemoglobin prior to delivery was 11.5 and after delivery was 8.6. Her Rh status was positive and Rhogam was not indicated. Discharge Medications: Discharge Medication List as of 10/13/2023 10:57 AM START taking these medications Details acetaminophen (TYLENOL) 325 MG tablet Take 3 tablets (975 mg) by mouth every 6 hours, OTC ibuprofen (ADVIL/MOTRIN) 800 MG tablet Take 1 tablet (800 mg) by mouth every 6 hours, OTC oxyCODONE (ROXICODONE) 5 MG tablet Take 1 tablet (5 mg) by mouth every 4 hours as needed, Disp-8 tablet, R-0, Local Print CONTINUE these medications which have NOT CHANGED Details aspirin 81 MG EC tablet Take 81 mg by mouth daily, Historical magnesium oxide 400 MG CAPS Take 1 capsule by mouth daily, Historical Vit-Fe Fumarate-FA ( MULTIVITAMIN PLUS IRON) 27-1 MG TABS Take 1 tablet by mouth daily, Historical Discharge/Disposition: Bárbara Fuller was discharged to home in stable condition with the following instructions/medications: 1) Call for temperature > 100.4, bright red vaginal bleeding >1 pad an hour x 2 hours, foul smelling vaginal discharge, pain not controlled by usual oral pain meds, persistent nausea and vomiting not controlled on medications, drainage or redness from incision site 2) For feeding she decided to breastfeed. 3) She was instructed to follow-up with her primary OB in 6 weeks for a routine visit and In 1 wk for bp check. 4) Discharge activity: No heavy lifting >15 lbs or strenuous activity for 6 weeks, pelvic rest for 6 weeks, no driving or operating machinery while on narcotics. MD Matthew Valencia CPAS 10/24/2023 10:34 PM documented in this encounter Discharge Instructions * Discharge Instructions* Kate Acosta, RN - 10/13/2023 9:18 AM CDT Images [...] of your health care provider. Copyright 2020 [facility]. All rights reserved. Clinically reviewed by Maddy Vickers, RNC-OB, MSN. Bioniz [id number] - Rev 08/23. Section: What to Expect [...] your doctor if you can take an vidw-enw-unyshdm medicine. If you think your pain medicine [...] Call the Suicide and Crisis Lifeline at 828. Call 3-063-051-talk ( ). Text HOME to 221084 to access the Crisis Text Line. Consider saving these numbers in your phone. Go to [employer] for more information or to chat online. Call your doctor or hot car charger now or seek immediate medical care if: [...] be sure to contact your doctor or hot car charger if: Your vaginal bleeding isn't decreasing. You feel sad, anxious, or hopeless for more than a few days. You are having problems with your breasts or . Where can you learn more? Go to https://www.[employer].net/patiented Enter M806 in the search box to learn more about Section: What to Expect at Home. Current as of: January 07, 2023 Content Version: 14.0 ?? [employer]. Care instructions adapted under license by your healthcare professional. If you have questions about a medical condition or this instruction, always ask your healthcare professional. [employer] disclaims any warranty or liability for your [...] EFM: 130 +accels, no decels, mod variability Gu-Win: quiet Assessment: 38 year old @ 38w0d [...] organs, hysterectomy, injury, risk of anesthesia including stroke/[place]/.All questions answered. Consent form signed. She is [...] Prevent Skin Injury Recent Flowsheet Documentation Taken 10/13/2023729 by Kate cAosta RN Body Position: position changed independently Goal: Optimal Comfort and Wellbeing Outcome: Progressing Intervention: Monitor Pain and Promote Comfort Recent Flowsheet Documentation Taken 10/13/2023 1037 by Kate Acosta RN Pain Management Interventions: medication (see MAR) Taken 10/13/2023729 by Kate Acosta RN Pain Management Interventions: medication (see MAR) Intervention: Provide Person-Centered Care Recent Flowsheet Documentation Taken 10/13/2023729 by Kate Acosta RN Trust Relationship/Rapport: care [...] Pain Management Interventions: medication (see MAR) Taken 10/13/2023 0730 by Kate Acosta RN Pain Management Interventions: medication (see MAR) Goal: Nausea and Vomiting Relief Outcome: Progressing Goal: Effective Urinary Elimination Outcome: Progressing Goal: Effective Oxygenation and Ventilation Outcome: Progressing Intervention: Optimize Oxygenation and Ventilation Recent Flowsheet Documentation Taken 10/13/2023 0730 by Kate Acosta RN Head of Bed [...] Skin Injury Recent Flowsheet Documentation Taken 10/13/2023 0114 by Darya Knox RN Body Position: position changed independently Goal: Optimal Comfort and Wellbeing Outcome: Progressing Intervention: Monitor Pain and Promote Comfort Recent Flowsheet Documentation Taken 10/13/2023113 by Darya Knox RN Pain Management Interventions: medication (see AUG) Taken 10/12/20232205 by Darya Knox RN Pain Management Interventions: medication (see AUG) [...] Knox RN Pain Management Interventions: medication (see AUG) Taken 10/12/20232205 by Darya Knox RN Pain Management Interventions: medication (see AUG) Goal: Nausea and Vomiting Relief Outcome: Progressing Goal: Effective Urinary Elimination Outcome: Progressing Goal: Effective Oxygenation and Ventilation Outcome: Progressing Intervention: Optimize Oxygenation and Ventilation Recent Flowsheet Documentation Taken 10/13/2023113 by Darya Knox RN Head of Bed [...] Documentation Taken 10/12/2023 1556 by Kate Acosta pre k lead teacher Interventions: medication (see MAR) cold applied Taken 10/12/2023 0855 by Kate [...] Management Interventions: medication (see MAR) cold applied Taken 10/12/2023 0855 by Kate [...] your shift note. Outcome: Progressing Flowsheets (Taken 10/11/20232313) Plan of Care Reviewed With: patient spouse Overall Patient Progress: improving Goal: Absence of Hospital-Acquired Illness or Injury Outcome: Progressing Intervention: Prevent Skin Injury Recent Flowsheet Documentation Taken 10/11/20232236 by Darya Knox, RN Body Position: position changed independently Goal: Optimal Comfort and Wellbeing Outcome: Progressing Intervention: Monitor Pain and Promote Comfort Recent Flowsheet Documentation Taken 10/11/20232236 by Darya Knox pre k lead teacher Interventions: medication (see MAR) cold applied Intervention: [...] Flowsheet Documentation Taken 10/11/20232236 by Darya Knox, SAHARA Body Position: position changed independently Goal: Absence [...] WDL. Pt ambulated to bathroom at 1820, Sinclair removed. Adequate U/O. Tolerating a regular diet. [...] Cotto MD - 10/11/2023 11:15 AM CDT [facility] Brief Operative Note Pre-operative diagnosis: Previous section [Z98.891] Sterilization [Z30.2] Post-operative diagnosis Same Procedure: Procedure(s): Repeat Section, bilateral Salpingectomy Scar revision- excision of keloid scar Surgeon(s): Surgeons and Role: * Brittany Cotto MD - Primary Estimated blood loss: 1228 ml Specimens: ID Type Source Tests Collected by Time Destination A : Cord blood Umbilical Cord OR DOCUMENTATION ONLY Brittany Ctoto MD 10/11/2023 9:23 AM B : Tissue [...] Brittany Cotto MD 10/11/2023 11:16 AM * Op Note - Brittany Cotto MD - 10/11/2023 9:13 AM CDT [facility] Obstetrics Operative Report Surgery Date: October 11, 2023 Surgeon(s): Brittany Cotto MD Assistants: none Preoperative Diagnoses: Intrauterine at 38w0d CHTN with proteinuria at 28 weeks History of prior section AMA Desires sterilization Postoperative diagnoses: Same Procedure performed: repeat low segment transverse section 2 layer closure Bilateral salpingectomy Scar revision Anesthesia: Spinal with duramorph Est Blood Loss (mL): 1228 mL Fluid replacement: 1300 mL lactated Ringer's. Urine output: 100 ml clear yellow Specimens: cord blood Complications: PPH- brisk bleeding from hysterotomy post delivery, no atony Operative findings: 1. Single viable female at 0920 hours on 10/11/2023. Apgars of 8 and 9 at one and five minutes. weight:: 6# 16 oz. presentation: cephalic. Amniotic fluid: clear. Placenta intact with 3 vessel cord. 2. Normal appearing fallopian tubes, ovaries. Uterus with very thin lower uterine segment, comprised of mostly scar tissue, most notable on mid to left portion of hysterotomy. Extension into lower portion of CLAIRE on left where poor myometrium quality noted. 3. Moderate adhesions from bladder to CLAIRE, omental adhesion to anterior abdominal wall, moderate adhesions from rectus to fascia and some adhesions in subcutaneous layer. 4. Keloid skin incision- approximately 12 cm excised in elliptical fashion Indication: Bárbara Fuller is a 38 year old, , who was admitted at 38w0d for repeat section for history of chronic hypertension. The risks, benefits, and alternatives of delivery were explained and the patient agreed to proceed. Procedure details: After obtaining informed consent the patient was taken to the operating room. A safety patient time out was performed prior to the procedure. SCD's were placed. The patient received spinal anesthesia with duramoprh prior to the skin incision. A sinclair was placed. She was placed inthe dorsal supine position with a leftward tilt and prepped and draped in the usual sterile fashion. Nursing staff were present and available for baby. Following test of adequate anesthesia, the abdomen was marked in an elliptical fashion, approximately 12 cm, to fully excise the keloid scar. Using the scalpel, skin was incised on this marking and skin was undermined with bovie cautery and keloid was excised entirely. The skin incision was carriedthrough the subcutaneous tissue to the fascia with scalpel. Fascia was incised in the midline and extended laterally with the Mares scissors. The superior margin of the fascial incision was grasped with Fahad clamps and dissected from the underlying muscle with sharp and blunt dissecton, which was then repeated at the lower margin of the fascial incision. The muscle was in the midline. The peritoneum was entered bluntly and the opening extended by sharp and digital dissection with care to avoid the bladder. Omentum identified as adherent to bladder, this adhesion was cauterized withoptimal hemostasis, freeing the omentum. De retractor was placed. The vesicouterine peritoneum was entered sharply with Metzenbaum scissors and incision extended laterally. The bladder flap was created sharply. The lower uterine segmentwas very thin. The lower segment of the uterus was opened sharply in a transverse fashion and extended with digital pressure. The infant's head was elevated to the level of the hysterotomy and was delivered atraumatically. The 's body followed thereafter with fundal pressure. Oxytocin was given through the running IV. The cord was doubly clamped after delayed cord clamping of 60 seconds andcut and the was handed off to the waiting nursing staff. A segment of the cord was cut and set aside for cord gases if needed. Cord blood was obtained. The placenta was extracted with fundal massage and cord traction. The uterus was cleared of all clots and debris. The uterus was massaged and was noted to be firm. Ring forcep was placed on vascular areas to control bleeding. With vigorous massage as well as administration of oxytocin, good uterinetone was achieved. The hysterotomy was repaired with 0-vicryl suture in a running locked fashion. The left lateral LUSextension was repaired with a second suture in running/non- locked fashion and was tied off. The rest of the hysterotomy was closed with the initial suture. A 2nd layer of 0-vicryl in a running, non-locked fashion was used to imbricate the incision and good hemostasis was achieved. The bladder flap was inspected and found to be hemostatic. The bilateral pericolic gutters were cleared of all clots.The hysterotomy was again inspected and found to have no active sites of bleeding. The attention was then turned to the fallopian tubes. Confirmation of desire for permanent sterilization completed. Right fallopian tube was grasped and carried to the fimbriated end. Using the handheld ligasure, the mesosalpinx inferior to the fallopian tube was grasped and cauterized and ligated up to the cornua. The cornua was cauterized and transected and fallopian tube sent to pathology. The left fallopian tube was similarly identified, grasped and carried out to the fimbriated end and mesosalpinx inferior to the tube was cauterized and transected up to the cornua. The cornua was cauterized and transected and the fallopian tube sent to pathology. Mesosalpinx was inspected and found to be hemostatic. The attention was turned to the hysterotomy which was hemostatic. Several serosal edges were made hemostatic with bovie. The attention then was turned to adnexa, where hemostasis was confirmed. De retractor was removed. The abdominal wall was examined and found to have no active sites of bleeding. The fascia was closed with a running suture of 0-vicryl. Subcutaneous tissue was irrigated. Areas that were oozing were controlled with cautery. The subcutaneous tissue was reapproximated with 3-0 plain suture. The skin was closed with 4-0 monocryl and exofin skin glue. The patient tolerated the procedure well and was taken to the recovery room in stable condition. All sponge, needle and instrument counts were correct x2. MD Matthew Valencia CPAS 10/11/2023 11:17 AM * Pharmacy-Admission Medication History - Ru Jacobs RPH - 10/08/2023 2:52 PM CDT Pre-Admission Medication History Medication history and patient interview completed by pre-admitting RN or pre- op/HELP DESK ASSISTANT. Reviewed by pharmacist, including [facility] dispense records, [facility] Everywhere, and chart review. Ru Jacobs, Pharm.D., BCPS Last Reviewed by Dionisio Sage, RN on 10/04/2023 at 12:15 PM FORM SETTER Med List Medication Sig Last Dose aspirin [...] MD LAB - BLOOD ORDERA BLES LABORATORY [facility] [address] [facility] Lab (1st floor, no room number) [place] [address] * Surgical Pathology Exam (10/11/2023 9:33 AM CDT) Case Report Surgical Pathology Report ? Case: [id number] ? Authorizing Provider: ??Brittany Cotto MD ?Collected: ? 10/11/2023 09:33 AM ? Ordering Location: ? [facility] ?? Received: ?10/11/2023 09:54 AM [...] is sectioned and displays a stellate lumen. Spray Applicator sections of the specimen are submitted as follows: A1-first described unoriented fallopian tube (inked black-fimbriated end submitted entirely) E0-H8-klrari described unoriented fallopian tube to include paratubal cysts (paratubal cysts and fimbriated end submitted entirely) (ROBERT Smith ([facility]) 10/14/2023 1:46 PM CDT LABORATORY Microscopic Description Microscopic examination was performed. Results are incorporated into the final diagnosis. All controls stained appropriately. 10/14/2023 1:46 PM CDT LABORATORY Performing Labs The technical component of this testing was completed at [facility] 10/14/2023 1:46 PM CDT LABORATORY Case Images 10/14/2023 1:46 PM CDT LABORATORY Tissue BOTH FALLOPIAN TUBES / Unknown Non-blood Collection / Unknown 10/11/2023 9:33 AM CDT 10/11/2023 9:54 AM CDT Brittany CLAUDIO - [facility] [address] 1st floor, [address] [place] [address], [facility] LABORATORY [facility] [address] [facility] ([facility], no room number) [place] [address], [facility] * Symptomatic Influenza A/B, RSV, [...] the Xpert Xpress CoV2/Flu/RSV Assay on the [employer]pe[employer]pert Instrument. This test should be ordered for [...] management. This test was validated by the [facility]. These laboratories are certified under the Clinical Laboratory Improvement Amendments of 1988 (CLIA-88) as qualified to perform high complexity laboratory testing. Brittany Cotto MD LAB - MICRO GENERA L ORDERABLES LABORATORY [facility] [address] Lab (1st floor, no room number) [place] [address], [facility] * Symptomatic COVID-19 Virus (Coronavirus) by PCR [...] the Xpert Xpress SARS-CoV-2 Assay on the Data[employer]itroXpert Instrument Systems. Additional information about this Emergency [...] COVID-19. This test was validated by the [facility]. This laboratory is certified under the Clinical Laboratory Improvement Amendments (CLIA) as qualified to perform high complexity laboratory testing. Brittany Cotto MD LAB - MICRO GENERA L ORDERABLES LABORATORY [facility] [address] [facility] Lab (1st floor, no room number) [place] [address] * HIV-1 Antibody (External Result) (03/07/2023 12:16 PM CDT) HIV 1&2 Antibody (External) Negative Nonreactive EXTERNAL LAB 03/07/2023 12:1 6 PM CDT Patient Reported LAB - HIM EXTERNAL R ESULT EXTERNAL LAB External Lab * Hepatitis B [...] HIM EXTERNAL R ESULT Performing Organization Address City/[facility]/ZIP Co de Phone Number EXTERNAL LAB External Lab * (ABNORMAL) Group [...] or analgesic side effects. Hold while on LINING PRINTER or with regular IV opioid dosing. Maximum [...] Kate Acosta RN)2039 ($Given - Provider: Darya Knox RN) 0232 ($Given - Provider: Sonja Chávez RN)0855 ($Given - Provider: Kate Acosta RN)1556 ($Given - Provider: Kate Acosta RN)2206 ($Given - Provider: Darya Knox RN) 0431 ($Given - Provider: Darya Knox RN)1037 ($Given - Provider: Kate Acosta RN) ceFAZolin Sodium (ANCEF) injection 2 g (COMPLETED) Routine, 2 g, Intravenous, PRE-OP/PRE-PROCEDURE, Starting on Sat10/11/23 at 0756, For 1 dose, Give no sooner than 60 minutes prior to incision., Indications: Perioperative Pharmacoprophylaxis, Pre-procedure 0854 ($Given - Provider: Angie Beach APRN BASKET TURNER) ibuprofen (ADVIL/MOTRIN) tablet 800 mg 800 mg, [...] Knox RN) 0452 ($Given - Provider: Sonja Chávez RN) [...] stools. 2038 (See Alternative - Provider: Darya T Abilio, RN) 0855 (See Alternative - Provider: Kate Acosta RN)2206 ($Given - Provider: Darya Knox, RN) 1038 (See Alternative - Provider: Kate Acosta RN) sodium chloride (PF) 0.9% PF flush 3 mL (CANCELED) 3 mL, Intracatheter, EVERY 8 HOURS, First dose on Sat10/11/23 at 1130, to lock peripheral IV dormant line 1220 (Not Given - Provider: Jordyn Espinosa RN - Reason: IV Infusing)2241 ($Given - Provider: Darya Knox, RN) 0040 ($Given - Provider: Sonja Chávez, RN)0630 (Canceled Entry - Provider: Sonja Chávez, RN)1538 (Not Given - Provider: Kate Acosta [...] RN)0939 (Paused - Provider: Angie Beach APRN BASKET TURNER - Comment: Switch to gravity)0940 ($New Bag - Provider: nAgie Beach APRN BASKET TURNER)1019 (Anesthesia Volume Adjustment - Provider: Angie Beach, WEN PALACIOS) PRN Medication Order 10/11/2023 10/12/2023 10/13/2023 bisacodyl [...] or analgesic side effects. Hold while on LINING PRINTER or with regular IV opioid dosing. Maximum [...] documented as of this encounter Care Teams Non Clinical Advisor Relationship Specialty Start Date End Date No Ref-Primary, Physician PCP - General 10/11/23 documented as of this encounter
--- OUTSIDE RECORDS SUMMARY | 2023-11-26 21:00 | XMS_ITS | Encounter Summary ---
Author Organization [facility] Address [address] [place] [address] Care Team Providers Care Motor And Chassis Inspector Name Role Phone No Ref-Primary, Physician Primary Care Provider Reason for Visit * Reason Comments Scheduled Section * Auth/Cert (Routine) Specialty Diagnoses / Procedures Referred By Sultana t Referred To Contact solid plasterer Diagnoses Previous section Sterilization Previous section [Z98.891] Sterilization [Z30.2] Procedures GA LIGATION,FALLOPIAN TUBE W/ GA REMOVAL OF FALLOPIAN TUBE GA W/ASSIST SPLIT GA DELIVERY ONLY GA DELIVERY+ CARE Repeat Section, bilateral Salpingectomy [facility] Delivery [address] [place] [address] Referral ID Status Reason Start Date Expiration Date Visits Re quested Visits Authorized [id number] 1 1 Encounter Details Date Type Department Care Team (Late st Contact Info) Description 10/11/2023 9:00 AM CDT - 10/11/2023 10:30 AM CDT Surgery [facility] [address] [place] [address] Brittany Cotto MD [address] [address] [place], [place] [id number] Repeat Section, bilateral Salpingectomy Surgery Details Date/Time [...] - - documented in this encounter Discharge Summaries * Brittany Cotto MD - 10/13/2023 12:13 PM CDT [facility] Discharge Summary Bárbara Fuller Age: [age] year [...] machinery while on narcotics. MD Matthew Valencia HEAT TREAT INSPECTOR 10/24/2023 10:34 PM documented in this encounter [...] of your health care provider. Copyright 2020 [facility]. All rights reserved. Clinically reviewed by Maddy Vickers, SAHARAC-OB, MSN. Livestation [id number] - Rev 08/23. Section: What to Expect [...] your doctor if you can take an gaaq-riy-vpmxezu medicine. If you think your pain medicine [...] help you watch for warning signs. Call 489 anytime you think you may need emergency [...] Call the Suicide and Crisis Lifeline at 740. Call 4-558-987-TALK ( ). Text HOME to 395984 to access the Crisis Text Line. Consider saving these numbers in your phone. Go to [employer]zeTalk[employer]Network18 for more information or to chat online. Call your doctor or blanker press operator now or seek immediate medical care if: [...] be sure to contact your doctor or blanker press operator if: Your vaginal bleeding isn't decreasing. You feel sad, anxious, or hopeless for more than a few days. You are having problems with your breasts or . Where can you learn more? Go to https://www.Moodswiing.net/patiented Enter M806 in the search box to learn more about Section: What to Expect at Home. Current as of: January 07, 2023 Content Version: 14.0 ?? [employer]. Care instructions adapted under license by your healthcare professional. If you have questions about a medical condition or this instruction, always ask your healthcare professional. [employer] disclaims any warranty or liability for your [...] in this encounter H&P Notes * Brittany oCtto MD - 10/11/2023 8:23 AM CDT OB [...] EFM: 130 +accels, no decels, mod variability [place]: quiet Assessment: 38 year old @ 38w0d [...] organs, hysterectomy, injury, risk of anesthesia including stroke/[place]/.All questions answered. Consent form signed. She is [...] Documentation Taken 10/12/2023 1556 by Kate Acosta specimen processor Interventions: medication (see MAR) cold applied Taken [...] Flowsheet Documentation Taken 10/11/20232236 by Darya Knox, specimen processor Interventions: medication (see MAR) cold applied Intervention: [...] Cotto MD - 10/11/2023 11:15 AM CDT [facility] Brief Operative Note Pre-operative diagnosis: Previous [...] Cotto MD - 10/11/2023 9:13 AM CDT [facility] Obstetrics Operative Report Surgery Date: October 11, [...] fashion and extended with digital pressure. The 's head was elevated to the level of the hysterotomy and was delivered atraumatically. The 's body followed thereafter with fundal pressure. Oxytocin was given through the running IV. The cord was doubly clamped after delayed cord clamping of 60 seconds andcut and the infant was handed off to the waiting nursing [...] counts were correct x2. MD Matthew Valencia HEAT TREAT INSPECTOR 10/11/2023 11:17 AM * Pharmacy-Admission Medication History - Ru Jacobs RPH - 10/08/2023 2:52 PM CDT Pre-Admission Medication History Medication history and patient interview completed by pre-admitting RN or pre- op/WET PRIMER POWDER BLENDER. Reviewed by pharmacist, including [facility] dispense records, [facility] Everywhere, and chart review. Ru Jacobs, Pharm.D., BCPS Last Reviewed by Dionisio Sage, RN on 10/04/2023 at 12:15 PM READING PROFESSOR Med List Medication Sig Last Dose aspirin [...] MD LAB - BLOOD ORDERA BLES LABORATORY [facility] Acute Care Lab [address] [facility] (1st floor, no room number) [place] [address], [facility] * Surgical Pathology Exam (10/11/2023 9:33 AM CDT) Case Report Surgical Pathology Report ? Case: [id number] ? Authorizing Provider: ??Brittany Cotto MD ?Collected: [...] is sectioned and displays a stellate lumen. Brand Leader sections of the specimen are submitted as follows: A1-first described unoriented fallopian tube (inked black-fimbriated end submitted entirely) J5-I3-bmnywl described unoriented fallopian tube to include paratubal cysts (paratubal cysts and fimbriated end submitted entirely) (ROBERT Smith (ASCP) 10/14/2023 1:46 PM CDT LABORATORY Microscopic Description Microscopic examination was performed. Results are incorporated into the final diagnosis. All controls stained appropriately. 10/14/2023 1:46 PM CDT LABORATORY Performing Labs The technical component of this testing was completed at [facility] 10/14/2023 1:46 PM CDT LABORATORY Case Images 10/14/2023 1:46 PM CDT LABORATORY Tissue BOTH FALLOPIAN TUBES / Unknown Non-blood Collection / Unknown 10/11/2023 9:33 AM CDT 10/11/2023 9:54 AM CDT Brittany CLAUDIO - [facility] Acute Care Lab [address] 1st floor, [address] [place] [address], [facility] LABORATORY [facility] Acute Care Lab [address] [facility] (1st floor, no room number) [place] [address], [facility] * Symptomatic Influenza A/B, RSV, [...] the Xpert Xpress CoV2/Flu/RSV Assay on the [employer] GeneXpert Instrument. This test should be ordered [...] management. This test was validated by the [facility]. These laboratories are certified under the Clinical Laboratory Improvement Amendments of 1988 (CLIA-88) as qualified to perform high complexity laboratory testing. Brittany Cotto MD LAB - MICRO GENERA L ORDERABLES [facility] Acute Care Lab [address] [facility] (1st floor, no room number) [place] [address], [facility] * Symptomatic COVID-19 Virus (Coronavirus) [...] the Xpert Xpress SARS-CoV-2 Assay on the [employer]rengthXpert Instrument Systems. Additional information about this Emergency [...] COVID-19. This test was validated by the [facility]. This laboratory is certified under the Clinical Laboratory Improvement Amendments (CLIA) as qualified to perform high complexity laboratory testing. Brittany Cotto MD LAB - MICRO GENERA L ORDERABLES [facility] [address] Lab (1st floor, no room number) [place] [address] * HIV-1 Antibody (External [...] HIM EXTERNAL R ESULT Performing Organization Address [facility]/ZIP Co de Phone Number EXTERNAL LAB External Lab * (ABNORMAL) Group B Streptococcus (External Result) (09/26/2022 3:00 PM CDT) Group B Streptococcus (External) Positive( A) Negative EXTERNAL LAB 09/26/2022 3:00 PM CDT Patient Reported LAB - HIM EXTERNAL R ESULT Performing Organization Address City/[facility] [place] Co de Phone Number EXTERNAL LAB External Lab documented in this [...] or analgesic side effects. Hold while on PSYCHIATRIC ATTENDANT or with regular IV opioid dosing. Maximum [...] 4 grams/day. 1433 ($Given - Provider: Kate Acosta, SAHARA)2039 ($Given - Provider: Darya Knox, RN) 0232 ($Given - Provider: Sonja Chávez RN)0855 ($Given - Provider: Kate Acosta RN)1556 ($Given - Provider: Kate Acosta, SAHARA)2206 ($Given - Provider: Darya Knox, SAHARA) 0431 ($Given - Provider: Darya Knox RN)1037 ($Given - Provider: Kate Acosta RN) ceFAZolin Sodium (ANCEF) injection 2 g (COMPLETED) Routine, 2 g, Intravenous, PRE-OP/PRE-PROCEDURE, Starting on Sat10/11/23 at 0756, For 1 dose, Give no sooner than 60 minutes prior to incision., Indications: Perioperative Pharmacoprophylaxis, Pre-procedure 0854 ($Given - Provider: Angie Beach APRN TIRE DESIGN ENGINEER) ibuprofen (ADVIL/MOTRIN) tablet 800 mg 800 mg, Oral, EVERY 6 HOURS, First dose on Sat10/12/23 at 1130, Give with food. 1129 ($Given - Provider: Rahel Cruz RN)1753 ($Given - Provider: Kate Acosta, SAHARA) 0113 ($Given - Provider: Darya Knox, SAHARA)0730 [...] RN) 0855 ($Given - Provider: Kate Acosta RN)220 (See Alternative - Provider: Darya Knox RN) [...] IV Infusing)2241 ($Given - Provider: Darya Knox, SAHARA) 0040 ($Given - Provider: Sonja Chávez, RN)0630 (Canceled Entry - Provider: Sonja Chávez [...] ($New Bag - Provider: Angie Beach APRN TIRE DESIGN ENGINEER)1019 (Anesthesia Volume Adjustment - Provider: Angie Beach [...] or analgesic side effects. Hold while on PSYCHIATRIC ATTENDANT or with regular IV opioid dosing. Maximum [...] documented as of this encounter Care Teams Motor And Chassis Inspector Relationship Specialty Start Date End Date No Ref-Primary, Physician PCP - General 10/11/23 documented as of this encounter
--- OUTSIDE RECORDS SUMMARY | 2023-11-26 21:00 | XMS_ITS | Encounter Summary ---
Author Organization [facility] Address [address] [place] [address] Care Team Providers Care Paper Machine Backtender Name Role Phone Unavailable Primary Care Provider Unavailabl e Encounter Details Date Type Department Care Team (Latest Contact Info) Description 10/08/2023 1:30 PM CDT - 10/08/2023 11:59 PM CDT Hospital Encounter [facility] [address] [facility] [address] [place] [address] Brittany Cotto MD [address] [place] [address] Chest pain Discharge Disposition: Home or Self [...] Atrial Rate 75 BPM RADIOLOG Y RESULTS TX Interval 138 ms RADIOLOG Y RESULTS QRS Duration 80 ms RADIOLO GY RESULTS QT 388 ms RADIOLOGY RESULTS QTc 433 ms RADIOLOGY RESULTS P [place] 35 degrees RADIOLOGY RESULTS R AXIS 21 degrees RADIOLOGY RESULTS T [place] 8 degrees RADIOLOGY RESULTS Interpretation ECG Sinus rhythm Normal ECG Confirmed by MD YOLY, NOELLE ([id number]) on 10/11/2023 4:21:24 PM RADIOLOGY RESULTS 10/08/2023 1:44 PM CDT 10/11/2023 4:21 PM CDT Brittany Cotto MD ECG ORDERABLES RADIOLOGY RESULTS documented in this encounter Visit Diagnoses Diagnosis Chest pain Chest pain, unspecified documented in this encounter
--- OUTSIDE RECORDS SUMMARY | 2023-11-26 21:00 | XMS_ITS | Referral Summary ---
Author Organization [place] Address [address] [place] [address] Care Team Providers Care End User Consultant Name Role Phone No Ref-Primary, Physician Primary Care Provider Encounters Date Type Department Care Team Description 10/13/2023 Encounter [facility] [address] [place] [address] 10/11/2023 7:05 AM CDT - 10/13/2023 12:13 PM CDT Hospital Encounter [facility] [address] [place] [address] Brittany Fenton MD S/P section (Primary Dx) Discharge Disposition: Home or Self Care 10/11/2023 8:54 AM CDT Anesthesia Event [facility] [address] [place] [address] Mukesh Moralez MD Allen, Brian J, MD 10/11/2023 9:00 AM CDT - 10/11/2023 10:30 AM CDT Surgery [facility] [address] [place] [address] Brittany Fenton MD Repeat Section, bilateral Salpingectomy 10/08/2023 1:30 PM CDT - 10/08/2023 11:59 PM CDT Hospital Encounter [facility] [address] [facility] [address] [place] [phone] Brittany Fenton MD Chest pain Discharge Disposition: Home or Self Care 10/08/2023 Orders Only [facility] [address] [facility] [address] [place] [address] Brittany Fenton MD Chest pain (Primary Dx) 10/08/2023 Orders Only [facility] [address] [place] [address] Brittany Fenton MD Chest pain (Primary Dx) 10/08/2023 Travel 10/08/2023 12:13 PM CDT - 10/08/2023 1:29 PM CDT Hospital Encounter [facility] [address] [facility] [address] [place] [address] Brittany Fenton MD Chest pain Discharge Disposition: Home or Self Care 10/07/2023 External Order Results [facility] [address] [place] [address] Outside, Provider 10/04/2023 Travel 10/03/2023 Orders Only [facility] [address] [place] [address] Brittany Fenton MD Pre-op exam (Primary Dx) [...] drink = 0.6 oz pur e alcohol) Eglon Depression Scale Answer Date Recorded Last EPDS [...] Fenton MD LAB - BLOOD ORDERA BLES [facility] Acute Care Lab [address] [facility] Lab (1st floor, no room number) [place] [address], [facility] * Surgical Pathology Exam (10/11/2023 9:33 AM CDT) Case Report Surgical Pathology Report ? Case: [id number] ? Authorizing Provider: ??Brittany Fenton MD ?Collected: ? 10/11/2023 09:33 AM ? Ordering Location: ? [facility] ?? Received: ?10/11/2023 09:54 AM ? [facility] ? Pathologist: ? Rosa Alonzo MD ? Specimen: ?Fallopian Tube, Bilateral ? 10/14/2023 1:46 PM CDT LABORATORY Final Diagnosis A. Bilateral fallopian tubes, bilateral salpingectomy: -Complete cross section of both fallopian tubes identified. -Fimbriated ends of both fallopian tubes without histopathologic abnormality. -Benign paratubal cysts. 10/14/2023 1:46 PM [facility] Clinical Information pt desires permanent sterilization 10/14/2023 1:46 PM T LABORATORY Gross Description A(A). Fallopian Tube, Bilateral, [...] is sectioned and displays a stellate lumen. Wood Type Cutter sections of the specimen are submitted as follows: A1-first described unoriented fallopian tube (inked black-fimbriated end submitted entirely) N0-P9-aqesma described unoriented fallopian tube to include paratubal cysts (paratubal cysts and fimbriated end submitted entirely) (ROBERT Smith (ASCP) 10/14/2023 1:46 PM T LABORATORY Microscopic Description Microscopic examination was performed. Results are incorporated into the final diagnosis. All controls stained appropriately. 10/14/2023 1:46 PM [facility] Performing Labs The technical component of this testing was completed at [facility] Laboratory 10/14/2023 1:46 PM CDT LABORATORY Case Images 10/14/2023 1:46 PM T LABORATORY Tissue BOTH FALLOPIAN TUBES / Unknown Non-blood Collection / Unknown 10/11/2023 9:33 AM CDT 10/11/2023 9:54 AM CDT Brittany CLAUDIO - [facility] LABORATORY [facility] Acute Care Lab [address] 1st floor, [address] [place] [phone], [facility] Acute Care Lab [address] [facility] Lab (1st floor, no room number) [place] [address] * Spinal Block (10/11/2023 9:01 AM CDT) Narrative Angie Beach APRN LEAD APPLIER - 10/11/2023 9:01 AM CDT Angie Beach APRN LEAD APPLIER ? 10/11/2023 ??9:02 AM Intrathecal injection Procedure [...] 0.15 mg - 10/11/2023 9:02:00 AM FOR [facility] ([facility]) ONLY: ?? Pain Team Contact information: please page the Pain Team Via CTQuanom. Search Pain. During daytime hours, please page the attending first. At night please page the resident first. Derrick Cottrell MD [place] ANESTHESIA * Symptomatic COVID-19 Virus (Coronavirus) by PCR Nasopharyngeal (10/11/2023 8:25 AM CDT) SARS CoV2 PCR Negative Negative 10/11/2023 9:17 AM CDT LABORATORY Comment:NEGATIVE: SARS-CoV-2 (COVID-19) RNA not detected, presumed negative. Swab NASOPHARYNGEAL STRUCTURE / Unknown Non-blood Collection / Unknown 10/11/2023 8:25 AM CDT 10/11/2023 8:34 AM CDT [facility] LABORATORY - 10/11/2023 9:17 AM CDT Testing was performed using the Xpert Xpress SARS-CoV-2 Assay on the [employer] Systems. Additional information about this Emergency [...] This test was validated by the [facility]. This laboratory is certified under the Clinical Laboratory Improvement Amendments (CLIA) as qualified to perform high complexity laboratory testing. Brittany Fenton MD LAB - MICRO GENERA L ORDERABLES [facility] Acute Care Lab [address] [facility] Lab (1st floor, no room number) [place] [address], [facility] * Symptomatic Influenza A/B, RSV, & SARS-CoV2 PCR (COVID-19) Nasopharyngeal (10/11/2023 8:25 AM CDT) Pathologist [facility] Influenza A PCR Negative Negative 10/11/2023 9:17 [...] AM CDT 10/11/2023 8:34 AM CDT Narrative [facility] LABORATORY - 10/11/2023 9:17 AM CDT Testing was performed using the Xpert Xpress CoV2/Flu/RSV Assay on the [employer]Xpert Instrument. This test should be ordered for [...] management. This test was validated by the [facility] [place] [facility]. These laboratories are certified under the Clinical Laboratory Improvement Amendments of 1988 (CLIA-88) as qualified to perform high complexity laboratory testing. Brittany Fenton MD LAB - MICRO GENERA L ORDERABLES LABORATORY [facility] Acute Care Lab [address] [facility] Lab (1st floor, no room number) [place] [address], [facility] * Adult Type and Screen (10/10/2023 12:39 PM CDT) ABO/RH(D) O POS 10/10/2023 11:24 PM CDT [facility] BLOOD BANK Antibody Screen Negative Negative 10/10/2023 11:24 PM CDT [facility] BLOOD BANK SPECIMEN EXPIRATION DATE [id number] 10/10/2023 11:24 PM CDT [facility] BLOOD BANK Blood BLOOD SPECIMEN / Unknown Client Draw / Unknown 10/10/2023 12:39 PM CDT 10/10/2023 2:35 PM CDT Shanta Denis MD LAB - BLOOD BANK ST ORDER [facility] BLOOD BANK [address] [place] [address] * Rapid Plasma Reagin with Reflex to Titer and Treponema Antibodies (10/10/2023 12:39 PM CDT) Pathologist [facility] Rapid Plasma Reagin Nonreactive Nonreactive 10/11/2023 10:28 [...] LES [facility] SPECIALTY CORE/PROT/ENDO Specialty Core/Prot/Endo [address] [facility] [address] Building, Room [address] * (ABNORMAL) CBC with platelets (10/10/2023 [...] LAB - BLOOD ORDERAB LES [facility] LABORATORY [facility] Core Lab [address] [facility], [address] [phone] * EKG 12-lead, tracing only (10/08/2023 1:44 PM CDT) Systolic Blood Pressure mmHg RADIOLOGY RESULTS Diastolic Blood Pressure mmHg RADIOLOGY RESULTS Ventricular Rate 75 BPM RAD IOLOGY RESULTS Atrial Rate 75 BPM RADIOLOG Y RESULTS NM Interval 138 ms RADIOLOG Y RESULTS QRS Duration 80 ms RADIOLO GY RESULTS QT 388 ms RADIOLOGY RESULTS QTc 433 ms RADIOLOGY RESULTS P [place] 35 degrees RADIOLOGY RESULTS R AXIS 21 degrees RADIOLOGY RESULTS T [place] 8 degrees RADIOLOGY RESULTS Interpretation ECG Sinus rhythm Normal ECG Confirmed by MD YOLY, NOELLE ([id number]) on 10/11/2023 4:21:24 PM RADIOLOGY RESULTS 10/08/2023 1:44 PM CDT 10/11/2023 4:21 PM CDT Brittany Fenton MD ECG ORDERABLES RADIOLOGY RESULTS * ECHO COMPLETE (10/08/2023 1:05 PM CDT) LVEF 55-60% CARDIOLOGY RESULTS Anatomical Region Laterality Modality Echocardiography 10/08/2023 12:2 7 PM CDT Narrative 10/08/2023 1:40 PM CDT [id number]^ELICEO^BRITTANY^Jannet [facility] Echocardiography Laboratory [address] [place] [address] Name: BÁRBARA PEREZ : 1985 Study Date: 10/08/2023 12:27 PM Age: 38 yrs Gender: Female Patient Location: [facility] Reason For Study: Chest pain Ordering Physician: [...] Procedure Note Shakeel Burrows MD - 10/08/2023 [id number]^ELICEO^BRITTANY^Jannet [facility] Echocardiography Laboratory [address] [place] [address] Name: BÁRBARA PEREZ : 1985 Study Date: 10/08/2023 12:27 PM Age: 38 yrs Gender: Female Patient Location: [facility] Reason For Study: Chest pain Ordering Physician: [...] LAB - BLOOD ORDERA BLES [facility] LABORATORY [facility] [address] [facility], [address] [place] [address] * Creatinine (10/07/2023 2:07 PM CDT) Only [...] LAB - BLOOD ORDERA BLES U LABORATORY [facility] [address] [facility], [address] [address] * AST (10/07/2023 2:07 PM CDT) Only the most recent of2 resultswithin the time period is included. AST 18 0 - 45 U/L 10/07/2023 4:1 7 PM CDT LABORATORY Blood BLOOD SPECIMEN / Unknown Client Draw / Unknown 10/07/2023 2:07 PM CDT 10/07/2023 3:46 PM CDT Brittany Fenton MD LAB - BLOOD ORDERA BLESimeon Performing Organization Address City/[facility]/ZIP Co de Phone Number U LABORATORY [facility] [address] [facility], [address] * ALT (10/07/2023 2:07 PM CDT) Only the most recent of2 resultswithin the time period is included. ALT 11 0 - 50 U/L 10/07/2023 4:1 7 PM CDT LABORATORY Blood BLOOD SPECIMEN / Unknown Client Draw / Unknown 10/07/2023 2:07 PM CDT 10/07/2023 3:46 PM CDT Brittany Fenton MD LAB - BLOOD ORDERA BLES U LABORATORY [facility] [address] [facility] Building, [address] [address] * Extra Green Top Tube (LAB USE ONLY) (10/01/2023 11:21 AM CDT) Hold Specimen JIC 10/01/2023 4:08 PM CDT UU LABORATORY Blood BLOOD SPECIMEN / Unknown Client Draw / Unknown 10/01/2023 11:21 AM CDT 10/01/2023 3:03 PM CDT Hanna Jerome APRN [facility] LAB - BLOOD ORDMary MORENO U LABORATORY [facility] [address] [facility], [address] [address] [place] [address] * Uric acid (10/01/2023 11:21 AM CDT) Pathologist [facility] Uric Acid 4.2 2.4 - 5.7 mg/dL 10/01/2023 6:53 PM CDT UU LABORATORY Blood BLOOD SPECIMEN / Unknown Client Draw / Unknown 10/01/2023 11:21 AM CDT 10/01/2023 3:03 PM CDT Hanna Petty Queenie WEN [facility] LAB - BLOOD ORDMary MORENO Performing Organization Address City/[facility]/ZIP Co de Phone Number U LABORATORY [facility] Core Lab [address] [facility], [address] [phone] * Protein random urine (10/01/2023 11:20 [...] Queenie CARVER CNM LAB - URINE ORDE RABLES [facility] LABORATORY [facility] [address] [facility], [address] [address] * HIV-1 Antibody (External Result) (03/07/2023 12:16 [...] LABORATORY - 03/03/2022 12:07 AM CDT The [employer] Xpert GBS LB Assay, performed on the [employer]?? [employer], is a qualitative in vitro diagnostic [...] settings. The device is not intended for nfpez-pd-uetl use. Ruthie Spangler DO LAB - MICRO GE NERAL ORDERABLES UU IDD LABORATORY [facility] Inf. Diseases Diag. Lab [address] [facility], [address] [place] [address], [facility] [phone] * Glucose by meter (11/22/2015 12:56 PM CDT) Glucose 91 70 - 99 mg/dL POINT OF CARE TEST, GLUCOSE 11/22/2015 12:5 6 PM CDT 11/22/2015 1:00 PM CDT Provider Unknown LAB - BEAKER POCT POINT OF CARE TEST, GLUCOSE from Last 3 Months or Most Recently Relevant to Health Maintenance Advance Directives For more information, please contact: [phone] * Full Code (Latest Code Status on File) Date Activated Date Inactivated Comments 10/11/2023 11:20 AM 10/13/2023 2:14 PM All basic a nd advanced life-sustaining interventions are performed as appropriate Question Answer Comments Code status determined by: Discussion with patie nt/ legal decision maker Care Teams End User Consultant Relationship Specialty Start Date End Date No Ref-Primary, Physician PCP - General 10/11/23
--- OUTSIDE RECORDS SUMMARY | 2023-11-26 21:00 | XMS_ITS | Encounter Summary ---
Author Organization [place] Address [address] [place] [address] Care Team Providers Care Sales Relationship Manager Name Role Phone No Ref-Primary, Physician Primary Care Provider Encounter Details Date Type Department Care Team (Late st Contact Info) Description 10/03/2023 Orders Only [facility] [address] [place] [address] Brittany Cotto MD [address] [address] [place] [address] Pre-op exam (Primary Dx) Social History Tobacco [...] documented as of this encounter Care Teams Sales Relationship Manager Relationship Specialty Start Date End Date No Ref-Primary, Physician PCP - General 10/11/23 documented as of this encounter
--- OUTSIDE RECORDS SUMMARY | 2023-11-26 21:00 | XMS_ITS | Encounter Summary ---
Author Organization [facility] Address [address] [place] [address] Care Team Providers Care Roof Panel Hanger Name Role Phone Unavailable Primary Care Provider Unavailabl e Reason for Referral * CV Testing (Urgent: 3-5 Days) - Closed Specialty Diagnoses / Procedures Referred By Sultana teague Referred To Contact Diagnoses Chest pain Procedures Echocardiogram Complete ZZHC TTE W/DOPPLER, COMPLETE ZZHC ECHO COMPLETE W DOPPLER W CONTRAST ZZHC ECHO COMPLETE W DOPPLER W/O CONTRAST ZZHC IV PUSH SINGLE, INITIAL SUBSTANCE ZZHC US GUIDE FOR PERICARDIOCENTESIS ZZHC ECHO MYOCARD BX ZZC INJECTION, PERFLUTREN LIPID MICROSPHERES, PER ML ZZHC STATISTIC IV PUSH SINGLE INITIAL SUBSTANCE OK ECHO MYOCARD BX OK INJECTION, PERFLUTREN LIPID MICROSPHERES, PER ML OK TTE W/DOPPLER, COMPLETE OK IV PUSH SINGLE, INITIAL SUBSTANCE OK TTE W/DOPPLER, COMPLETE OK TTE W/DOPPLER, COMPLETE HC US GUIDE FOR PERICARDIOCENTESIS HC ECHO MYOCARD BX HC IV PUSH SINGLE, INITIAL SUBSTANCE HC STATISTIC IV PUSH SINGLE INITIAL SUBSTANCE HC ECHO COMPLETE W DOPPLER W CONTRAST HC ECHO COMPLETE W DOPPLER W/O CONTRAST Melvina Fenton MD [address] [place] [address] [address] [place] [address] Referral ID Status Reason Start Date Expiration Date Visits Re quested Visits Authorized [id number] Closed 10/08/2023 10/07/2024 1 1 Reason for [...] ZZHC STATISTIC IV PUSH SINGLE INITIAL SUBSTANCE OK ECHO MYOCARD BX OK INJECTION, PERFLUTREN LIPID MICROSPHERES, PER ML OK TTE W/DOPPLER, COMPLETE OK IV PUSH SINGLE, INITIAL SUBSTANCE OK TTE W/DOPPLER, COMPLETE OK TTE W/DOPPLER, COMPLETE HC US GUIDE FOR PERICARDIOCENTESIS HC ECHO MYOCARD BX HC IV PUSH SINGLE, INITIAL SUBSTANCE HC STATISTIC IV PUSH SINGLE INITIAL SUBSTANCE HC ECHO COMPLETE W DOPPLER W CONTRAST HC ECHO COMPLETE W DOPPLER W/O CONTRAST Melvina Fenton MD [address] [place] [address] Referral ID Status Reason Start Date Expiration Date Visits Re quested Visits Authorized [id number] Closed 10/08/2023 10/07/2024 1 1 Encounter Details Date Type Department Care Team (Latest Contact Info) Description 10/08/2023 12:13 PM CDT - 10/08/2023 1:29 PM CDT Hospital Encounter [facility] Specialty Care [address] [facility] [address] [place] [address] Melvina Fenton MD [address] [place] [phone] Chest pain Discharge Disposition: Home or Self [...] PM CDT Narrative 10/08/2023 1:40 PM CDT [id number]^ELICEO^MELVINA^Jannet [facility] Echocardiography Laboratory [address] [place] [address] Name: BÁRBARA FULLER : 1985 Study Date: 10/08/2023 12:27 PM Age: 38 yrs Gender: Female Patient Location: [facility] Reason For Study: Chest pain Ordering [...] Procedure Note Shakeel Burrows MD - 10/08/2023 [id number]^ELICEO^MELVINA^Jannet [facility] Echocardiography Laboratory [address] [place] [address] Name: BÁRBARA FULLER : 1985 Study Date: 10/08/2023 12:27 PM Age: 38 yrs Gender: Female Patient Location: [facility] Reason For Study: Chest pain Ordering [...] max selwyn: 84.4 cm/sec MV A max sewlyn: 78.6 cm/sec MV E/A: 1.1 MV max [...]
--- OUTSIDE RECORDS SUMMARY | 2023-11-26 21:00 | XMS_ITS | Encounter Summary ---
Author Organization [place] Address [address] [place] [address] Care Team Providers Care Voyage Management System Operator Name Role Phone No Ref-Primary, Physician Primary Care Provider Reason for Visit * Auth/Cert (Routine) Specialty Diagnoses / Procedures Referred By Contac t Referred To Contact clinical outcomes manager Diagnoses Previous section Sterilization Previous section [Z98.891] Sterilization [Z30.2] Procedures RI LIGATION,FALLOPIAN TUBE W/ RI REMOVAL OF FALLOPIAN TUBE RI W/ASSIST SPLIT RI DELIVERY ONLY RI DELIVERY+ CARE Repeat Section, bilateral Salpingectomy [facility] [address] [place] [address] Referral ID Status Reason Start Date Expiration Date Visits Re quested Visits Authorized [id number] 1 1 Encounter Details Date Type Department Care Team (Late st Contact Info) Description 10/11/2023 8:54 AM CDT Anesthesia Event [facility] [address] [place] [address] Mukesh Moralez MD [facility] ANESTHESIA [address] [place], [place] [phone] Derrick Cottrell MD [facility] ANESTHESIA NETWORK [address] [place], [place] [address] Anesthesia Record Procedure Summary Procedure Name Responsible [...] recorded are pre- induction. Angie Beach APRN SOAP SLABBER 0854 Anesthesia Ready for Procedu re 0854 MD Present 0854 MD Present 0859 MD Present 0903 MD Present 0907 MD Present 0914 MD Present 0920 Uterine Incision 0921 MD Present 0921 Baby Delivered 0922 MD Present 0923 Placenta Delivered 09 SOAP SLABBER Ready for Procedure 0929 MD Present 0931 MD Present 0938 MD Present 1019 an stop data 1023 An Stop Electronically signed by Angie Beach APRN SOAP SLABBER on October 11, 2023 10:26 AM Meds [...] Anesthesia Procedure Notes - Angie Beach APRN SOAP SLABBER - 10/11/2023 9:01 AM CDTAssociated Order(s): Spinal [...] 0.15 mg - 10/11/2023 9:02:00 AM FOR [facility] ([facility]) ONLY: Pain Team Contact information: please page the Pain Team Via GTxcel.Search Pain. During daytime hours, please page the [...] 89 PLT [phone] Lab Test 10/07/23 10/01/2322 1407 1121 1551 CR 0.61 0.63 0.67 [...] and realistic alternatives discussed. Questions answered and patient/internet sales representative(s) expressed understanding. - Discussed: - Discussed [...] 0.15 mg - 10/11/2023 9:02:00 AM FOR [facility] ([facility]) ONLY: ?? Pain Team Contact information: please page the Pain Team Via GTxcel. Search Pain. During daytime hours, please page the attending first. At night please page the resident first. Derrick Cottrell MD [place] ANESTHESIA documented in this encounter Visit Diagnoses [...] documented as of this encounter Care Teams Voyage Management System Operator Relationship Specialty Start Date End Date No Ref-Primary, Physician PCP - General 10/11/23 documented as of this encounter
--- OUTSIDE RECORDS SUMMARY | 2023-11-26 21:00 | XMS_ITS | Encounter Summary ---
Author Organization [place] Address [address] [place] [address] Care Team Providers Care Frame Nailer Name Role Phone Unavailable Primary Care Provider Unavailabl e Encounter Details Date Type Department Care Team (Late st Contact Info) Description 10/08/2023 Orders Only [facility] Heart Care [address] [place] [phone] Brittany Cotto MD [address] [place] [address] Chest pain (Primary Dx) Social History Tobacco [...]
--- OUTSIDE RECORDS SUMMARY | 2023-11-26 21:00 | XMS_ITS | Encounter Summary ---
Author Organization [place] Address [address] [place] [address] Care Team Providers Care Tallow Refiner Name Role Phone Unavailable Primary Care Provider [...]
--- OUTSIDE RECORDS SUMMARY | 2023-11-26 21:00 | XMS_ITS | Encounter Summary ---
Author Organization [place] Address [address] [place] [address] Care Team Providers Care Laborer Tan House Name Role Phone Unavailable Primary Care Provider [...]
== END 2023-11-22 09:21 | disposition home or self-care (01) ==
LOC: NFLDREF 11-26 20:58
PROVIDERS: Visit Provider Obstetrics & Gynecology
DX: R35.0 Frequency of micturition (principal); R30.0 Dysuria
CPT/HCPCS: 87086

== ENCOUNTER 2023-12-16 10:06 | Outpatient (CLI) | payer BC, SELFPAY ==
--- OUTSIDE RECORDS SUMMARY | 2023-12-20 17:49 | XMS_ITS | Clinical Summary ---
Author Organization [facility] Address [address] [place] [address] Care Team Providers Care Registered Associate Name Role Phone Unavailable Primary Care Provider Unavailabl e Source Comments Patient records contain information from all sites at [facility]. For routine questions regarding patient records, call [phone] during business hours, M-F 8:00 AM - 5:00 PM Central Time. Record requests for emergency care only can be directed to [phone] at any time.[facility] Active Problems Problem Noted Date Diagnosed Date Gestational Proteinuria First Trimester 09/30/19 24 Comments Yes Encounters Date Type Department Care Team Description 09/30/2023 2:30 PM CDT External Outreach Division of Nephrology and Hypertension in [place], [place] [address] [place] [address] Abhishek Bullock Jr., D.O. Gestational Proteinuria First [...] C Screening 1985 Lipid (Cholesterol) Screening 1985 Depression Screening (Annual PHQ-2) 07/01/2023 Cervical Cancer Screening 11/21/2026 11/22/2023, 05/2019 DTaP,Tdap,and Td Vaccines (11 - Td or Tdap) 08/15/2033 08/15/2023, [...]
--- OUTSIDE RECORDS SUMMARY | 2023-12-20 17:49 | XMS_ITS | Referral Summary ---
Author Organization [facility] Address [address] [place] [address] Care Team Providers Care Escalator Constructor Name Role Phone Unavailable Primary Care Provider Unavailabl e Source Comments Patient records contain information from all sites at [facility]. For routine questions regarding patient records, call [phone] during business hours, M-F 8:00 AM - 5:00 PM Central Time. Record requests for emergency care only can be directed to [phone] at any time.[facility] Encounters Date Type Department Care Team Description 09/30/2023 2:30 PM CDT External Outreach Division of Nephrology and Hypertension in [place], [place] [address] [place] [address] Abhishek Bullock Jr., D.O. Gestational Proteinuria First [...]
--- OUTSIDE RECORDS SUMMARY | 2023-12-20 17:50 | XMS_ITS | Referral Summary ---
Author Organization [place] Address [address] [place] [address] Care Team Providers Care Commercial Account Officer Name Role Phone No Ref-Primary, Physician Primary Care Provider Encounters Date Type Department Care Team Description 10/13/2023 Encounter [facility] [address] [place] [address] 10/11/2023 7:05 AM CDT - 10/13/2023 12:13 PM CDT Hospital Encounter [facility] [address] [place] [address] Brittany Fenton MD S/P section (Primary Dx) Discharge Disposition: Home or Self Care 10/11/2023 8:54 AM CDT Anesthesia Event [facility] [address] [place] [address] Mukesh Moralez MD Allen, Brian J, MD 10/11/2023 9:00 AM CDT - 10/11/2023 10:30 AM CDT Surgery [facility] [address] [place] [address] Brittany Fenton MD Repeat Section, bilateral Salpingectomy 10/08/2023 1:30 PM CDT - 10/08/2023 11:59 PM CDT Hospital Encounter [facility] [address] [place] [phone] Brittany Fenton MD Chest pain Discharge Disposition: Home or Self Care 10/08/2023 Orders Only [facility] [address] [place] [address] Brittany Fenton MD Chest pain (Primary Dx) 10/08/2023 Orders Only [facility] [address] [place] [address] Brittany Fenton MD Chest pain (Primary Dx) 10/08/2023 Travel 10/08/2023 12:13 PM CDT - 10/08/2023 1:29 PM CDT Hospital Encounter [facility] [address] [place] [address] Brittany Fenton MD Chest pain Discharge Disposition: Home or Self Care 10/07/2023 External Order Results [facility] [address] [place] [address] Outside, Provider 10/04/2023 Travel 10/03/2023 Orders Only [facility] [address] [place] [address] Brittany Fenton MD Pre-op exam (Primary Dx) [...] drink = 0.6 oz pur e alcohol) [place] Depression Scale Answer Date Recorded Last EPDS [...] Fenton MD LAB - BLOOD ORDERA BLES [facility] Acute Care Lab [address] [facility] Lab (1st floor, no room number) [place] [address], [facility] * Surgical Pathology Exam (10/11/2023 9:33 AM CDT) Case Report Surgical Pathology Report ? Case: [id number] ? Authorizing Provider: ??Brittany Fenton MD ?Collected: ? 10/11/2023 09:33 AM ? Ordering Location: ? [facility] ?? Received: ?10/11/2023 09:54 AM ? [facility] ? Pathologist: ? Rosa Alonzo MD ? Specimen: ?Fallopian Tube, Bilateral ? 10/14/2023 1:46 PM CDT LABORATORY Final Diagnosis A. Bilateral fallopian tubes, bilateral salpingectomy: -Complete cross section of both fallopian tubes identified. -Fimbriated ends of both fallopian tubes without histopathologic abnormality. -Benign paratubal cysts. 10/14/2023 1:46 PM [facility] Clinical Information pt desires permanent sterilization [...] is sectioned and displays a stellate lumen. Acrylic Fabricator sections of the specimen are submitted as follows: A1-first described unoriented fallopian tube (inked black-fimbriated end submitted entirely) W8-L1-yryuve described unoriented fallopian tube to include paratubal cysts (paratubal cysts and fimbriated end submitted entirely) (ROBERT Smith (ASCP) 10/14/2023 1:46 PM T LABORATORY Microscopic Description Microscopic examination was performed. Results are incorporated into the final diagnosis. All controls stained appropriately. 10/14/2023 1:46 PM [facility] LABOR[facility]ORY Performing Labs The technical component of this testing was completed at [facility] 10/14/2023 1:46 PM CDT LABORATORY Case Images 10/14/2023 1:46 PM T LABORATORY Tissue BOTH FALLOPIAN TUBES / Unknown Non-blood Collection / Unknown 10/11/2023 9:33 AM CDT 10/11/2023 9:54 AM CDT Brittany CLAUDIO - [facility] LABORAT[facility] Acute [facility] Lab [address] 1st floor, [address] [place] [phone], [facility] Acute Care Lab [address] [facility] Lab (1st floor, no room number) [place] [address] * Spinal Block (10/11/2023 9:01 AM CDT) Narrative Angie Beach APRN MATTRESS FINISHER - 10/11/2023 9:01 AM CDT Angie Beach APRN MATTRESS FINISHER ? 10/11/2023 ??9:02 AM Intrathecal injection Procedure [...] 0.15 mg - 10/11/2023 9:02:00 AM FOR [facility] ([facility]) ONLY: ?? Pain Team Contact information: please page the Pain Team Via [employer]. Search Pain. During daytime hours, please page the attending first. At night please page the resident first. Derrick Cottrell MD DC ANESTHESIA * Symptomatic COVID-19 Virus (Coronavirus) by PCR Nasopharyngeal (10/11/2023 8:25 AM CDT) SARS CoV2 PCR Negative Negative 10/11/2023 9:17 AM CDT LABORATORY Comment:NEGATIVE: SARS-CoV-2 (COVID-19) RNA not detected, presumed negative. Swab NASOPHARYNGEAL STRUCTURE / Unknown Non-blood Collection / Unknown 10/11/2023 8:25 AM CDT 10/11/2023 8:34 AM CDT [facility] LABORATORY - 10/11/2023 9:17 AM CDT Testing was performed using the Xpert Xpress SARS-CoV-2 Assay on the [employer]. Additional information about this Emergency [...] MD LAB - MICRO GENERA L ORDERABLES [facility] [address] [facility] Lab (1st floor, no room number) [place] [address], [facility] * Symptomatic Influenza A/B, RSV, & SARS-CoV2 PCR (COVID-19) Nasopharyngeal (10/11/2023 8:25 AM CDT) Pathologist [facility] Influenza A PCR Negative Negative 10/11/2023 [...] the Xpert Xpress CoV2/Flu/RSV Assay on the [facility] Instrument. This test should be ordered for [...] management. This test was validated by the [facility]. These laboratories are certified under the Clinical Laboratory Improvement Amendments of 1988 (CLIA-88) as qualified to perform high complexity laboratory testing. Brittany Fenton MD LAB - MICRO GENERA L ORDERABLES LABORATORY [facility] Acute Care Lab [address] [facility] Lab (1st floor, no room number) [place] [address], [facility] * Adult Type and Screen (10/10/2023 12:39 PM CDT) ABO/RH(D) O POS 10/10/2023 11:24 PM CDT [facility] Antibody Screen Negative Negative 10/10/2023 11:24 PM CDT [facility] BLOOD BANK SPECIMEN EXPIRATION DATE [id number] 10/10/2023 11:24 PM CDT [facility] BLOOD BANK Blood BLOOD SPECIMEN / Unknown Client Draw / Unknown 10/10/2023 12:39 PM CDT 10/10/2023 2:35 PM CDT Shanta Denis MD LAB - BLOOD BANK ST ORDER [facility] [address] [place] [address] * Rapid Plasma Reagin with Reflex to Titer and Treponema Antibodies (10/10/2023 12:39 PM CDT) Pathologist [facility] Rapid Plasma Reagin Nonreactive Nonreactive 10/11/2023 [...] LES [facility] SPECIALTY CORE/PROT/ENDO Specialty Core/Prot/Endo [address] [facility] J Building, Room [phone] * (ABNORMAL) CBC with platelets (10/10/2023 [...] LAB - BLOOD ORDERAB LES [facility] LABORATORY [facility] [place] [facility] [address] [facility], [address] [address] * EKG 12-lead, tracing only (10/08/2023 1:44 PM CDT) Systolic Blood Pressure mmHg RADIOLOGY RESULTS Diastolic Blood Pressure mmHg RADIOLOGY RESULTS Ventricular Rate 75 BPM RAD IOLOGY RESULTS Atrial Rate 75 BPM RADIOLOG Y RESULTS DC Interval 138 ms RADIOLOG Y RESULTS QRS Duration 80 ms RADIOLO GY RESULTS QT 388 ms RADIOLOGY RESULTS QTc 433 ms RADIOLOGY RESULTS P [place] 35 degrees RADIOLOGY RESULTS R AXIS 21 degrees RADIOLOGY RESULTS T [place] 8 degrees RADIOLOGY RESULTS Interpretation ECG Sinus rhythm Normal ECG Confirmed by MD YOLY, NOELLE ([id number]) on 10/11/2023 4:21:24 PM RADIOLOGY RESULTS 10/08/2023 1:44 PM CDT 10/11/2023 4:21 PM CDT Brittany Fenton MD ECG ORDERABLES RADIOLOGY RESULTS * ECHO COMPLETE (10/08/2023 1:05 PM CDT) LVEF 55-60% CARDIOLOGY RESULTS Anatomical Region Laterality Modality Echocardiography 10/08/2023 12:2 7 PM CDT Narrative 10/08/2023 1:40 PM CDT [id number]^ELICEO^BRITTANY^Jannet [facility] Echocardiography Laboratory [address] [place] [address] Name: BÁRBARA PEREZ : 1985 Study Date: 10/08/2023 12:27 PM Age: 38 yrs Gender: Female Patient Location: [facility] Reason For Study: Chest pain Ordering [...] Procedure Note Shakeel Burrows MD - 10/08/2023 [id number]^ELICEO^BRITTANY^Jannet [facility] Echocardiography Laboratory [address] [place] [address] Name: BÁRBARA PEREZ : 1985 Study Date: 10/08/2023 12:27 PM Age: 38 yrs Gender: Female Patient Location: [facility] Reason For Study: Chest pain Ordering [...] LAB - BLOOD ORDERA BLES [facility] LABORATORY [facility] [place] [facility] [address] [facility], [address] [place] [address] * Creatinine (10/07/2023 2:07 PM CDT) Only [...] LAB - BLOOD ORDERA BLES U LABORATORY [facility] [place] [facility] [address] [facility], [address] [address] * AST (10/07/2023 2:07 PM CDT) Only the most recent of2 resultswithin the time period is included. AST 18 0 - 45 U/L 10/07/2023 4:1 7 PM CDT LABORATORY Blood BLOOD SPECIMEN / Unknown Client Draw / Unknown 10/07/2023 2:07 PM CDT 10/07/2023 3:46 PM CDT Brittany Fenton MD LAB - BLOOD ORDERA BLESimeon Performing Organization Address City/[facility]/ZIP Co de Phone Number U LABORATORY [facility] [place] [facility] [address] [facility], [address] * ALT (10/07/2023 2:07 PM CDT) Only the most recent of2 resultswithin the time period is included. ALT 11 0 - 50 U/L 10/07/2023 4:1 7 PM CDT LABORATORY Blood BLOOD SPECIMEN / Unknown Client Draw / Unknown 10/07/2023 2:07 PM CDT 10/07/2023 3:46 PM CDT Brittany Fenton MD LAB - BLOOD ORDERA BLES U LABORATORY [facility] [place] [facility] [address] [facility] Unit Building, Room [address] [address] * Extra Green Top Tube (LAB USE ONLY) (10/01/2023 11:21 AM CDT) Hold Specimen JIC 10/01/2023 4:08 PM CDT U[facility] LABORATORY Blood BLOOD SPECIMEN / Unknown Client Draw / Unknown 10/01/2023 11:21 AM CDT 10/01/2023 3:03 PM CDT Hanna Jerome APRN [facility] LAB - BLOOD ORDMary MORENO U LABORATORY [facility] [place] [facility] [address] [facility], [address] [address] [place] [address] * Uric acid (10/01/2023 11:21 AM CDT) Pathologist [facility] Uric Acid 4.2 2.4 - 5.7 mg/dL 10/01/2023 6:53 PM CDT UU LABORATORY Blood BLOOD SPECIMEN / Unknown Client Draw / Unknown 10/01/2023 11:21 AM CDT 10/01/2023 3:03 PM CDT Hanna Petty Queenie WEN [facility] LAB - BLOOD ORDMary MORENO Performing Organization Address City/[facility]/ZIP Co de Phone Number U LABORATORY [facility] Core Lab [address] [facility], [address] [phone] * Protein random urine (10/01/2023 11:20 [...] LAB - URINE ORDE RABLES [facility] LABORATORY [facility] [place] [facility] [address] [facility], [address] [address] * HIV-1 Antibody (External Result) (03/07/2023 [...] LABORATORY - 03/03/2022 12:07 AM CDT The [employer] Xpert GBS LB Assay, performed on the [employer], is a qualitative in vitro diagnostic [...] settings. The device is not intended for [id number] use. Ruthie Spangler DO LAB - MICRO GE NERAL ORDERABLES [facility] IDD LABORATORY [facility] Inf. Diseases Diag. Lab [address] [facility], [address] [place] [address], [facility] [phone] * Glucose by meter (11/22/2015 12:56 PM CDT) Glucose 91 70 - 99 mg/dL POINT OF CARE TEST, GLUCOSE 11/22/2015 12:5 6 PM CDT 11/22/2015 1:00 PM CDT Provider Unknown LAB - BEAKER POCT POINT OF CARE TEST, GLUCOSE from Last 3 Months or Most Recently Relevant to Health Maintenance Advance Directives For more information, please contact: [phone] * Full Code (Latest Code Status on File) Date Activated Date Inactivated Comments 10/11/2023 11:20 AM 10/13/2023 2:14 PM All basic a nd advanced life-sustaining interventions are performed as appropriate Question Answer Comments Code status determined by: Discussion with patie nt/ legal decision maker Care Teams Commercial Account Officer Relationship Specialty Start Date End Date No Ref-Primary, Physician PCP - General 10/11/23
--- OUTSIDE RECORDS SUMMARY | 2023-12-20 17:50 | XMS_ITS | Encounter Summary ---
Author Organization [place] Address [address] [place] [address] Care Team Providers Care Damascener Name Role Phone Unavailable Primary Care Provider Unavailabl e Encounter Details Date Type Department Care Team (Latest Contact Info) Description 10/08/2023 1:30 PM CDT - 10/08/2023 11:59 PM CDT Hospital Encounter [facility] [address] [facility] [facility] [address] [place] [address] Brittany Cotto MD [address] [place] [address] Chest pain Discharge Disposition: Home or Self [...] Atrial Rate 75 BPM RADIOLOG Y RESULTS [place] Interval 138 ms RADIOLOG Y RESULTS QRS Duration 80 ms RADIOLO GY RESULTS QT 388 ms RADIOLOGY RESULTS QTc 433 ms RADIOLOGY RESULTS P [place] 35 degrees RADIOLOGY RESULTS R AXIS 21 degrees RADIOLOGY RESULTS T [place] 8 degrees RADIOLOGY RESULTS Interpretation ECG Sinus rhythm Normal ECG Confirmed by MD YOLY, NOELLE ([id number]) on 10/11/2023 4:21:24 PM RADIOLOGY RESULTS 10/08/2023 1:44 PM CDT 10/11/2023 4:21 PM CDT Brittany Cotto MD ECG ORDERABLES RADIOLOGY RESULTS documented in this encounter Visit Diagnoses Diagnosis Chest pain Chest pain, unspecified documented in this encounter
--- OUTSIDE RECORDS SUMMARY | 2023-12-20 17:50 | XMS_ITS ---
Author Organization [facility] Address [address] [place] [address] Care Team Providers Care Grape Cutter Name Role Phone Unavailable Unavailable Unavailable Surgery Details Not on file Complications Check Surgery Details section. Procedure Estimated Blood Loss Check Surgery Details section. Procedure Findings Check Surgery Details section. Procedure Specimens Taken Check Surgery Details section.
--- OUTSIDE RECORDS SUMMARY | 2023-12-20 17:50 | XMS_ITS | Encounter Summary ---
Author Organization [facility] Address [address] [place] [address] Care Team Providers Care Book Coverer Name Role Phone Unavailable Primary Care Provider Unavailabl e Reason for Visit * Appointment Request (Routine) - Closed Specialty Diagnoses / Procedures Referred By Contjulia t Referred To Contact Nephrology and Hypertension Referral ID Status Reason Start Date Expiration Date Visits Re quested Visits Authorized [id number] Closed 08/29/2023 08/28/2024 1 1 Encounter Details Date Type Department Care Team (Latest Contact Info) Description 09/30/2023 2:30 PM CDT External Outreach Division of Nephrology and Hypertension in [place], [place] [address] [place] [phone] Abhishek Bullock Jr., D.O. [address] [place] [phone] Gestational Proteinuria First Trimester (HCC) (Primary Dx) [...] Provider: DR Sam SUBJECTIVE REASON FOR VISIT [facility] Follow-up regards proteinuria [...] a on the 10 of October, likely [facility] where there is a intensive care unit. [...]
--- OUTSIDE RECORDS SUMMARY | 2023-12-20 17:50 | XMS_ITS | Encounter Summary ---
Author Organization [place] Address [address] [place] [address] Care Team Providers Care Therapist Respiratory Name Role Phone No Ref-Primary, Physician Primary Care Provider Reason for Visit * Reason Comments Scheduled Section * Auth/Cert (Routine) Specialty Diagnoses / Procedures Referred By Sultana t Referred To Contact physician primary care sports medicine Diagnoses Previous section Sterilization Previous section [Z98.891] Sterilization [Z30.2] Procedures MA LIGATION,FALLOPIAN TUBE W/ MA REMOVAL OF FALLOPIAN TUBE MA W/ASSIST SPLIT MA DELIVERY ONLY MA DELIVERY+ CARE Repeat Section, bilateral Salpingectomy Rh Labor And Delivery [address] [place] [address] Referral ID Status Reason Start Date Expiration Date Visits Re quested Visits Authorized [id number] 1 1 Encounter Details Date Type Department Care Team (Latest Contact Info) Description 10/11/2023 7:05 AM CDT - 10/13/2023 12:13 PM CDT Hospital Encounter [facility] [address] [place] [phone] Brittany Cotto MD [address] [id number] S/P section (Primary Dx) Discharge Disposition: Home or Self Care Social History Tobacco Use Types Packs/Day Years Used Date Smoking Tobacco: Former Cigarettes Tobacco Cessation:Counseling Given: Not Answered Alcohol Use Standard Drinks/Week Comments Not Currently 0 (1 standard drink = 0.6 oz pur e alcohol) Wilmer Depression Scale Answer Date Recorded Last EPDS [...] Cotto MD - 10/13/2023 12:13 PM CDT [facility] Discharge Summary Bárbara Fuller Age: [age] [...] machinery while on narcotics. MD Matthew Valencia RADIO PROGRAM DIRECTOR 10/24/2023 10:34 PM documented in this encounter [...] of your health care provider. Copyright 2020 [facility]. All rights reserved. Clinically reviewed by Maddy Vickers, RNC-OB, MSN. [employer] [id number] - Rev 08/23. Section: What to Expect [...] your doctor if you can take an pcid-lal-xyzolzs medicine. If you think your pain medicine [...] Call the Suicide and Crisis Lifeline at 058. Call 5-823-989-talk ( ). Text HOME to 118948 to access the Crisis Text Line. Consider saving these numbers in your phone. Go to Neurescue[employer]Enventum for more information or to chat online. Call your doctor or engine room helper now or seek immediate medical care if: [...] be sure to contact your doctor or engine room helper if: Your vaginal bleeding isn't decreasing. You feel sad, anxious, or hopeless for more than a few days. You are having problems with your breasts or . Where can you learn more? Go to https://www.Limitlesslane.net/patiented Enter M806 in the search box to learn more about Section: What to Expect at Home. Current as of: January 07, 2023 Content Version: 14.0 ?? [employer]. Care instructions adapted under license by your healthcare professional. If you have questions about a medical condition or this instruction, always ask your healthcare professional. [employer] disclaims any warranty or liability for your [...] EFM: 130 +accels, no decels, mod variability Hanahan: quiet Assessment: 38 year old @ 38w0d [...] Documentation Taken 10/12/2023 1556 by Kate Acosta furnace combustion tester Interventions: medication (see MAR) cold applied Taken [...] Flowsheet Documentation Taken 10/11/20232236 by Darya Knox furnace combustion tester Interventions: medication (see MAR) cold applied Intervention: [...] Cotto MD - 10/11/2023 11:15 AM CDT [facility] Brief Operative Note Pre-operative diagnosis: Previous [...] Cotto MD - 10/11/2023 9:13 AM CDT [facility] Obstetrics Operative Report Surgery Date: October [...] was cauterized withoptimal hemostasis, freeing the omentum. Ed retractor was placed. The vesicouterine peritoneum was entered sharply with Metzenbaum scissors and incision extended laterally. The bladder flap was created sharply. The lower uterine segmentwas very thin. The lower segment of the uterus was opened sharply in a transverse fashion and extended with digital pressure. The infant's head was elevated to the level of the hysterotomy and was delivered atraumatically. The infant's body followed thereafter with fundal pressure. Oxytocin [...] counts were correct x2. MD Matthew Valencia RADIO PROGRAM DIRECTOR 10/11/2023 11:17 AM * Pharmacy-Admission Medication History - Ru Jacobs RPH - 10/08/2023 2:52 PM CDT Pre-Admission Medication History Medication history and patient interview completed by pre-admitting RN or pre- op/COMPANY MANAGER. Reviewed by pharmacist, including [facility] dispense records, [facility] Everywhere, and chart review. Ru Jacobs, Pharm.D., BCPS Last Reviewed by Dionisio Sage, RN on 10/04/2023 at 12:15 PM WRINGER AND SETTER Med List Medication Sig Last Dose [...] [facility] [address] [facility] (1st floor, no room number) [place] [address] * Surgical Pathology Exam (10/11/2023 9:33 AM CDT) Case Report Surgical Pathology Report ? Case: [id number] ? Authorizing Provider: ??Brittany Cotto MD ?Collected: [...] is sectioned and displays a stellate lumen. Quality Assurance Lead sections of the specimen are submitted as follows: A1-first described unoriented fallopian tube (inked black-fimbriated end submitted entirely) C1-T1-qawgov described unoriented fallopian tube to include paratubal cysts (paratubal cysts and fimbriated end submitted entirely) (ROBERT Smith ([facility]) 10/14/2023 1:46 PM CDT LABORATORY Microscopic Description Microscopic examination was performed. Results are incorporated into the final diagnosis. All controls stained appropriately. 10/14/2023 1:46 PM CDT LABORATORY Performing Labs The technical component of this testing was completed at [facility] 10/14/2023 1:46 PM CDT LABORATORY Case Images 10/14/2023 1:46 PM CDT LABORATORY Tissue BOTH FALLOPIAN TUBES / Unknown Non-blood Collection / Unknown 10/11/2023 9:33 AM CDT 10/11/2023 9:54 AM CDT Brittany CLAUDIO - [facility] [address] 1st floor, [address] [place] [address], [facility] [address] [facility], no room number) [place] [address], [facility] * Symptomatic Influenza A/B, RSV, & SARS-CoV2 [...] the Xpert Xpress CoV2/Flu/RSV Assay on the sellpointsXpert Instrument. This test should be ordered for [...] management. This test was validated by the [facility]. These laboratories are certified under the Clinical Laboratory Improvement Amendments of 1988 (CLIA-88) as qualified to perform high complexity laboratory testing. Brittany Cotto MD LAB - MICRO GENERA L ORDERABLES LABORATORY [facility] [address] [facility] (1st floor, no room number) [place] [address], [facility] * Symptomatic COVID-19 Virus (Coronavirus) by PCR [...] the Xpert Xpress SARS-CoV-2 Assay on the [employer]pert Instrument Systems. Additional information about this Emergency [...] COVID-19. This test was validated by the [facility]. This laboratory is certified under the Clinical Laboratory Improvement Amendments (CLIA) as qualified to perform high complexity laboratory testing. Brittany Cotto MD LAB - MICRO GENERA L ORDERABLES LABORATORY [facility] [address] [facility] (1st floor, no room number) [place] [address] * HIV-1 Antibody (External Result) [...] HIM EXTERNAL R ESULT Performing Organization Address City/[facility] [address]/ZIP Co de Phone Number EXTERNAL LAB External [...] or analgesic side effects. Hold while on APPAREL FASHION DESIGNER or with regular IV opioid dosing. Maximum [...] 0854 ($Given - Provider: Angie Beach APRN BEAD FORMING MACHINE OPERATOR) ibuprofen (ADVIL/MOTRIN) tablet 800 mg 800 mg, [...] RN)0939 (Paused - Provider: Angie Beach APRN BEAD FORMING MACHINE OPERATOR - Comment: Switch to gravity)0940 ($New Bag - Provider: Angie Beach APRN BEAD FORMING MACHINE OPERATOR)1019 (Anesthesia Volume Adjustment - Provider: Angie Beach, [...] or analgesic side effects. Hold while on APPAREL FASHION DESIGNER or with regular IV opioid dosing. Maximum [...] documented as of this encounter Care Teams Therapist Respiratory Relationship Specialty Start Date End Date No Ref-Primary, Physician PCP - General 10/11/23 documented as of this encounter
--- OUTSIDE RECORDS SUMMARY | 2023-12-20 17:50 | XMS_ITS | Encounter Summary ---
Author Organization [place] Address [address] [place] [address] Care Team Providers Care Binder Coverstitch Name Role Phone No Ref-Primary, Physician Primary Care Provider Reason for Visit * Auth/Cert (Routine) Specialty Diagnoses / Procedures Referred By Contac t Referred To Contact adjunct history instructor Diagnoses Previous section Sterilization Previous section [Z98.891] Sterilization [Z30.2] Procedures GA LIGATION,FALLOPIAN TUBE W/ GA REMOVAL OF FALLOPIAN TUBE GA W/ASSIST SPLIT GA DELIVERY ONLY GA DELIVERY+ CARE Repeat Section, bilateral Salpingectomy Rh Labor And Delivery [address] [place] [address] Referral ID Status Reason Start Date Expiration Date Visits Re quested Visits Authorized [id number] 1 1 Encounter Details Date Type Department Care Team (Late st Contact Info) Description 10/11/2023 8:54 AM CDT Anesthesia Event [facility] [address] [place] [address] Mukesh Moralez MD [facility] [address] [place], [place] [address] Derrick Cottrell MD [facility] [address] [place], [place] [phone] Anesthesia Record Procedure Summary Procedure Name Responsible [...] first vital signs recorded are pre- induction. Anige Beach APRN SMOKE CHASER 0854 Anesthesia Ready for Procedu re 0854 MD Present 0854 MD Present 0859 MD Present 0903 MD Present 0907 MD Present 0914 MD Present 0920 Uterine Incision 0921 MD Present 0921 Baby Delivered 0922 MD Present 0923 Placenta Delivered 09 SMOKE CHASER Ready for Procedure 0929 MD Present 0931 MD Present 0938 MD Present 1019 an stop data 1023 An Stop Electronically signed by Angie Beach APRN SMOKE CHASER on October 11, 2023 10:26 AM Meds [...] Anesthesia Procedure Notes - Angie Beach APRN SMOKE CHASER - 10/11/2023 9:01 AM CDTAssociated Order(s): Spinal [...] 0.15 mg - 10/11/2023 9:02:00 AM FOR [facility] ([facility]) ONLY: Pain Team Contact information: please page the Pain Team Via [employer].Search Pain. During daytime hours, please page the [...] and realistic alternatives discussed. Questions answered and patient/client service representative(s) expressed understanding. - Discussed: - Discussed [...] 0.15 mg - 10/11/2023 9:02:00 AM FOR [facility] ([facility]) ONLY: ?? Pain Team Contact information: please page the Pain Team Via [employer]. Search [employer]. During daytime hours, please page the attending first. At night please page the resident first. Derrick Cottrell MD [facility] documented in this encounter Visit Diagnoses [...] documented as of this encounter Care Teams Binder Coverstitch Relationship Specialty Start Date End Date No Ref-Primary, Physician PCP - General 10/11/23 documented as of this encounter
--- OUTSIDE RECORDS SUMMARY | 2023-12-20 17:50 | XMS_ITS | Encounter Summary ---
Author Organization [facility] Address [address] [place] [address] Care Team Providers Care Structural Metal Fabricator Apprentice Name Role Phone No Ref-Primary, Physician Primary Care Provider Encounter Details Date Type Department Care Team (Late st Contact Info) Description 10/13/2023 Encounter [facility] [address] [place] [address] Social History Tobacco Use Types Packs/Day Years Used Date Smoking Tobacco: Former Cigarettes Alcohol Use Standard Drinks/Week Comments Not Currently 0 (1 standard drink = 0.6 oz pur e alcohol) Pulteney Depression Scale Answer Date Recorded Last EPDS [...] on filedocumented in this encounter Care Teams Structural Metal Fabricator Apprentice Relationship Specialty Start Date End Date No Ref-Primary, Physician PCP - General 10/11/23 documented as of this encounter
--- OUTSIDE RECORDS SUMMARY | 2023-12-20 17:50 | XMS_ITS | Clinical Summary ---
Author Organization [place] Address [address] [place] [address] Care Team Providers Care Etched Circuit Processor Name Role Phone No Ref-Primary, Physician Primary [...] Type Department Care Team Description 10/13/2023 Encounter [facility] [address] [place] [address] 10/11/2023 9:00 AM CDT - 10/11/2023 10:30 AM CDT Surgery [facility] [address] [place] [address] Brittany Fenton MD Repeat Section, bilateral Salpingectomy 10/11/2023 8:54 AM CDT Anesthesia Event [facility] [address] [place] [address] Mukesh Moralez MD Allen, Brian J, MD 10/11/2023 7:05 AM CDT - 10/13/2023 12:13 PM CDT Hospital Encounter [facility] [address] [place] [address] Brittany Fenton MD S/P section (Primary Dx) Discharge Disposition: Home or Self Care 10/08/2023 1:30 PM CDT - 10/08/2023 11:59 PM CDT Hospital Encounter [facility] [address] [place] [address] [address] [place] [address] Brittany Fenton MD Chest pain Discharge Disposition: Home or Self Care 10/08/2023 12:13 PM CDT - 10/08/2023 1:29 PM CDT Hospital Encounter [facility] [address] [place] [address] [address] [place] [address] Brittany Fenton MD Chest pain Discharge Disposition: Home or Self Care 10/08/2023 Orders Only [address] [place] [address] Brittany Fenton MD Chest pain (Primary Dx) 10/08/2023 Orders Only [facility] [address] [place] [address] Brittany Fenton MD Chest pain (Primary Dx) 10/08/2023 Travel 10/07/2023 External Order Results [facility] [address] [place] [phone] Outside, Provider 10/04/2023 Travel 10/03/2023 Orders Only [facility] [address] [place] [address] Brittany Fenton MD Pre-op exam (Primary Dx) from Last 3 Months Social History Tobacco Use Types Packs/Day Years Used Date Smoking Tobacco: Former Cigarettes Tobacco Cessation:Counseling Given: Not Answered Alcohol Use Standard Drinks/Week Comments Not Currently 0 (1 standard drink = 0.6 oz pur e alcohol) Dingess Depression Scale Answer Date Recorded Last EPDS [...] LAB - [facility]OD [facility] Acute Care Lab [address] [facility] Lab (1st floor, no room number) [place] [address] * Surgical Pathology Exam (10/11/2023 9:33 AM CDT) Case Report Surgical Pathology Report ? Case: [id number] ? Authorizing Provider: ??Brittany Fenton MD ?Collected: ? 10/11/2023 09:33 AM ? Ordering Location: ? [facility] ?? Received: ?10/11/2023 09:54 AM [...] is sectioned and displays a stellate lumen. E Merchant sections of the specimen are submitted as follows: A1-first described unoriented fallopian tube (inked black-fimbriated end submitted entirely) [id number] described unoriented fallopian tube to include paratubal cysts (paratubal cysts and fimbriated end submitted entirely) (ROBERT Smith (ASCP) 10/14/2023 1:46 PM CDT LABORATORY Microscopic Description Microscopic examination was performed. Results are incorporated into the final diagnosis. All controls stained appropriately. 10/14/2023 1:46 PM CDT LABORATORY Performing Labs The technical component of this testing was completed at [facility] 10/14/2023 1:46 PM CDT LABORATORY Case Images 10/14/2023 1:46 PM CDT LABORATORY Tissue BOTH FALLOPIAN TUBES / Unknown Non-blood Collection / Unknown 10/11/2023 9:33 AM CDT 10/11/2023 9:54 AM CDT Brittany CLAUDIO - [facility] LABORATORY [facility] Lab [address] 1st floor, [address] [place] [address], [facility] LABORATORY [facility] Acute Care Lab [address] [facility] Lab (1st floor, no room number) [place] [address] * Spinal Block (10/11/2023 9:01 AM CDT) Narrative Angie Beach APRN GEOLOGY PROFESSOR - 10/11/2023 9:01 AM CDT Angie Beach APRN GEOLOGY PROFESSOR ? 10/11/2023 ??9:02 AM Intrathecal injection Procedure [...] 0.15 mg - 10/11/2023 9:02:00 AM FOR [facility] ([facility]) ONLY: ?? Pain Team Contact information: please page the Pain Team Via CartRescuer. Search Pain. During daytime hours, please page the attending first. At night please page the resident first. Derrick Cottrell MD AR ANESTHESIA * Symptomatic COVID-19 Virus (Coronavirus) by [...] the Xpert Xpress SARS-CoV-2 Assay on the [employer] Instrument Systems. Additional information about this Emergency [...] MD LAB - MICRO GENERA L ORDERABLES [facility] Acute Care Lab [address] [facility] Lab (1st floor, no room number) [place] [address], [facility] * Symptomatic Influenza A/B, RSV, & SARS-CoV2 PCR (COVID-19) Nasopharyngeal (10/11/2023 8:25 AM CDT) Pathologist [facility] Influenza A PCR Negative Negative 10/11/2023 [...] the Xpert Xpress CoV2/Flu/RSV Assay on the [employer] GeneXpert Instrument. This test should be ordered [...] management. This test was validated by the [facility]. These laboratories are certified under the Clinical Laboratory Improvement Amendments of 1988 (CLIA-88) as qualified to perform high complexity laboratory testing. Brittany Fenton MD LAB - MICRO GENERA L ORDERABLES [facility] Acute Care Lab [address] [facility] Lab (1st floor, no room number) [place] [address], [facility] * Adult Type and Screen (10/10/2023 12:39 PM CDT) ABO/RH(D) O POS 10/10/2023 11:24 PM CDT [facility] BLOOD BANK Antibody Screen Negative Negative 10/10/2023 11:24 PM CDT [facility] BLOOD BANK SPECIMEN EXPIRATION DATE [id number] 10/10/2023 11:24 PM CDT [facility] BLOOD BANK Blood BLOOD SPECIMEN / Unknown Client Draw / Unknown 10/10/2023 12:39 PM CDT 10/10/2023 2:35 PM CDT Shanta Denis MD LAB - BLOOD BANK TE ST ORDER U BLOOD BANK [address] [place] [address], [facility] * Rapid Plasma Reagin with Reflex to Titer and Treponema Antibodies (10/10/2023 12:39 PM CDT) Pathologist [facility] Rapid Plasma Reagin Nonreactive Nonreactive 10/11/2023 [...] ORDERAB LES SPECIALTY CORE/PROT/ENDO Specialty Core/Prot/Endo [address] [facility] [address] [facility], Room 3-[address] * (ABNORMAL) CBC with platelets (10/10/2023 12:39 PM CDT) Only the most recent of3 resultswithin the time period is included. [facility] WBC Count 14.1(H) 4.0 - 11.0 10e3/uL [...] 12:39 PM CDT 10/10/2023 2:35 PM CDT Shnata Denis MD LAB - BLOOD ORDERAB LES [facility] LABORATORY [facility] Core Lab [address] [facility], Room [address] [place] [address] * EKG 12-lead, tracing only (10/08/2023 1:44 PM CDT) Systolic Blood Pressure mmHg RADIOLOGY RESULTS Diastolic Blood Pressure mmHg RADIOLOGY RESULTS Ventricular Rate 75 BPM RAD IOLOGY RESULTS Atrial Rate 75 BPM RADIOLOG Y RESULTS AR Interval 138 ms RADIOLOG Y RESULTS QRS Duration 80 ms RADIOLO GY RESULTS QT 388 ms RADIOLOGY RESULTS QTc 433 ms RADIOLOGY RESULTS P [place] 35 degrees RADIOLOGY RESULTS R AXIS 21 degrees RADIOLOGY RESULTS T [place] 8 degrees RADIOLOGY RESULTS Interpretation ECG Sinus rhythm Normal ECG Confirmed by MD YOLY, NOELLE ([id number]) on 10/11/2023 4:21:24 PM RADIOLOGY RESULTS 10/08/2023 1:44 PM CDT 10/11/2023 4:21 PM CDT Brittany Fenton MD ECG ORDERABLES RADIOLOGY RESULTS * ECHO COMPLETE (10/08/2023 1:05 PM CDT) LVEF 55-60% CARDIOLOGY RESULTS Anatomical Region Laterality Modality Echocardiography 10/08/2023 12:2 7 PM CDT Narrative 10/08/2023 1:40 PM CDT [id number]^ELICEO^BRITTANY^[facility] Echocardiography Laboratory [address] [place] [address] Name: BÁRBARA PEREZ : 1985 Study Date: 10/08/2023 12:27 PM Age: 38 yrs Gender: Female Patient Location: [facility] Reason For Study: Chest pain Ordering Physician: [...] Procedure Note Shakeel Burrows MD - 10/08/2023 [id number]^ELICEO^BRITTANY^[facility] Echocardiography Laboratory [address] [place] [address] Name: BÁRBARA PEREZ : 1985 Study Date: 10/08/2023 12:27 PM Age: 38 yrs Gender: Female Patient Location: [facility] Reason For Study: Chest pain Ordering Physician: [...] T, High Sensitivity (10/07/2023 3:27 PM CDT) [facility] Troponin T, High Sensitivity <6 <=14 ng/L [...] - BLOOD ORDERA BLES Performing Organization Address City/[facility]/ZIP Co de Phone Number U LABORATORY [facility] Core Lab [address] [facility], [facility] [address] * Creatinine (10/07/2023 2:07 PM CDT) [...] MD LAB - BLOOD ORDERA BLES LABORATORY [facility] Lab [address] [facility], [address] * AST (10/07/2023 2:07 PM CDT) Only the most recent of2 resultswithin the time period is included. AST 18 0 - 45 U/L 10/07/2023 4:1 7 PM CDT LABORATORY Blood BLOOD SPECIMEN / Unknown Client Draw / Unknown 10/07/2023 2:07 PM CDT 10/07/2023 3:46 PM CDT Brittany Fenton MD LAB - BLOOD ORDERA BLES LABORATORY [facility] Lab [address] [facility], [address], [place] [address] [place] [address] * ALT (10/07/2023 2:07 PM CDT) Only the most recent of2 resultswithin the time period is included. ALT 11 0 - 50 U/L 10/07/2023 4:1 7 PM CDT LABORATORY Blood BLOOD SPECIMEN / Unknown Client Draw / Unknown 10/07/2023 2:07 PM CDT 10/07/2023 3:46 PM CDT Brittany Fenton MD LAB - BLOOD ORDERA BLES LABORATORY [facility] Lab [address] [facility], [address] [address] [place] [address] * Extra Green Top Tube (LAB USE ONLY) (10/01/2023 11:21 AM CDT) Hold Specimen JIC 10/01/2023 4:08 PM CDT LABORATORY Blood BLOOD SPECIMEN / Unknown Client Draw / Unknown 10/01/2023 11:21 AM CDT 10/01/2023 3:03 PM CDT Hanna Jerome APRN, CNM LAB - BLOOD ORDE TIFFANIE LABORATORY [facility] Core Lab [address] [facility] Unit [facility], Room [address] [phone] * Uric acid (10/01/2023 11:21 AM CDT) Pathologist [facility] Uric Acid 4.2 2.4 - 5.7 mg/dL 10/01/2023 6:53 PM CDT [facility] LABORATORY Blood BLOOD SPECIMEN / Unknown Client Draw / Unknown 10/01/2023 11:21 AM CDT 10/01/2023 3:03 PM CDT Hanna Jovanny Queenie CARVER [facility] LAB - BLOOD ORDE TIFFANIE [facility] LABORATORY [facility] Core Lab [address] [facility], [address] [phone] * Protein random urine (10/01/2023 11:20 AM CDT) [facility] Total Protein Urine mg/dL 6.4 mg/dL 10/01/2023 [...] 10/01/2023 3:02 PM CDT Hanna Jerome APRN [facility] LAB - URINE ORDE TIFFANIE U LABORATORY [facility] Lab [address] [facility], [address] [address] [place] [address] * HIV-1 Antibody (External Result) (03/07/2023 12:16 PM CDT) [facility] HIV 1&2 Antibody (External) Negative Nonreactive EXTERNAL [...] LABORATORY - 03/03/2022 12:07 AM CDT The Cepsciencebiteid Xpert GBS LB Assay, performed on the [employer]?? [employer], is a qualitative in vitro diagnostic [...] settings. The device is not intended for gbnlb-dv-ueyi use. Ruthie Spangler DO LAB - MICRO GE NERAL ORDERABLES [facility] IDD LABORATORY [facility] Inf. Diseases Diag. Lab [address] [facility], [address] [place] [address], [facility] [phone] * Glucose by meter (11/22/2015 12:56 PM CDT) Glucose 91 70 - 99 mg/dL POINT OF CARE TEST, GLUCOSE 11/22/2015 12:5 6 PM CDT 11/22/2015 1:00 PM CDT Provider Unknown LAB - BEAKER POCT POINT OF CARE TEST, GLUCOSE from Last 3 Months or Most Recently Relevant to Health Maintenance Advance Directives For more information, please contact: [phone] * Full Code (Latest Code Status on File) Date Activated Date Inactivated Comments 10/11/2023 11:20 AM 10/13/2023 2:14 PM All basic a nd advanced life-sustaining interventions are performed as appropriate Question Answer Comments Code status determined by: Discussion with patie nt/ legal decision maker Care Teams Etched Circuit Processor Relationship Specialty Start Date End Date No Ref-Primary, Physician PCP - General 10/11/23
--- OUTSIDE RECORDS SUMMARY | 2023-12-20 17:50 | XMS_ITS | Encounter Summary ---
Author Organization [place] Address [facility] [place] [address] Care Team Providers Care Electrical Controls Technician Name Role Phone Unavailable Primary Care Provider Unavailabl e Encounter Details Date Type Department Care Team (Late st Contact Info) Description 10/08/2023 Orders Only [facility] [address] [place] [phone] Brittany Cotto MD [address] [place] [address] Chest pain (Primary Dx) Social History Tobacco [...]
--- OUTSIDE RECORDS SUMMARY | 2023-12-20 17:50 | XMS_ITS | Encounter Summary ---
Author Organization [facility] Address [address] [place] [address] Care Team Providers Care Machine Preservative Filler Name Role Phone Unavailable Primary Care Provider Unavailabl e Encounter Details Date Type Department Care Team (Late st Contact Info) Description 10/08/2023 Orders Only [facility] Care [address] [facility] [address] [place] [address] Brittany Cotto MD [address] [address] [place] [address] Chest pain (Primary Dx) Social History Tobacco [...] Atrial Rate 75 BPM RADIOLOG Y RESULTS RI Interval 138 ms RADIOLOG Y RESULTS QRS Duration 80 ms RADIOLO GY RESULTS QT 388 ms RADIOLOGY RESULTS QTc 433 ms RADIOLOGY RESULTS P [place] 35 degrees RADIOLOGY RESULTS R AXIS 21 degrees RADIOLOGY RESULTS T [place] 8 degrees RADIOLOGY RESULTS Interpretation ECG Sinus rhythm Normal ECG Confirmed by MD FREDERICK STEVEN ([id number]) on 10/11/2023 4:21:24 PM RADIOLOGY RESULTS 10/08/2023 1:44 PM CDT 10/11/2023 4:21 PM CDT Brittany Cotto MD ECG ORDERABLES RADIOLOGY RESULTS documented in this encounter Visit Diagnoses Diagnosis Chest pain- Primary Chest pain, unspecified documented in this encounter
--- OUTSIDE RECORDS SUMMARY | 2023-12-20 17:50 | XMS_ITS | Encounter Summary ---
Author Organization [place] Address [address] [place] [address] Care Team Providers Care Chip Mucker Name Role Phone No Ref-Primary, Physician Primary Care Provider Reason for Visit * Reason Comments Scheduled Section * Auth/Cert (Routine) Specialty Diagnoses / Procedures Referred By Sultana t Referred To Contact protein purification scientist Diagnoses Previous section Sterilization Previous section [Z98.891] Sterilization [Z30.2] Procedures AL LIGATION,FALLOPIAN TUBE W/ AL REMOVAL OF FALLOPIAN TUBE AL W/ASSIST SPLIT AL DELIVERY ONLY AL DELIVERY+ CARE Repeat Section, bilateral Salpingectomy Rh Labor And Delivery [address] [place] [address] Referral ID Status Reason Start Date Expiration Date Visits Re quested Visits Authorized [id number] 1 1 Encounter Details Date Type Department Care Team (Late st Contact Info) Description 10/11/2023 9:00 AM CDT - 10/11/2023 10:30 AM CDT Surgery [facility] [address] [place] [address] Brittany Cotto MD [address] 100 [place], [place] [id number] Repeat Section, bilateral Salpingectomy Surgery Details Date/Time [...] Cotto MD - 10/13/2023 12:13 PM CDT [facility] Discharge Summary Bárbara Fuller Age: [age] [...] machinery while on narcotics. MD Matthew Valencia CHOIRMASTER 10/24/2023 10:34 PM documented in this encounter [...] of your health care provider. Copyright 2020 [facility]. All rights reserved. Clinically reviewed by Maddy Vickers, SAHARAC-OB, MSN. [employer] [id number] - Rev 08/23. Section: What to Expect [...] your doctor if you can take an srhz-tze-tkclrfr medicine. If you think your pain medicine [...] help you watch for warning signs. Call 688 anytime you think you may need emergency [...] Call the Suicide and Crisis Lifeline at 333. Call 0-748-609-TALK ( ). Text HOME to 104200 to access the Crisis Text Line. Consider saving these numbers in your phone. Go to [employer] for more information or to chat online. Call your doctor or data warehousing specialist now or seek immediate medical care if: [...] be sure to contact your doctor or data warehousing specialist if: Your vaginal bleeding isn't decreasing. You feel sad, anxious, or hopeless for more than a few days. You are having problems with your breasts or . Where can you learn more? Go to https://www.[employer].net/patiented Enter M806 in the search box to learn more about Section: What to Expect at Home. Current as of: January 07, 2023 Content Version: 14.0 ?? [employer]. Care instructions adapted under license by your healthcare professional. If you have questions about a medical condition or this instruction, always ask your healthcare professional. [employer] disclaims any warranty or liability for your [...] EFM: 130 +accels, no decels, mod variability [place]: quiet Assessment: 38 year old @ 38w0d [...] organs, hysterectomy, injury, risk of anesthesia including stroke/ID/.All questions answered. Consent form signed. She is [...] Wellbeing Recent Flowsheet Documentation Taken 10/13/2023729 by aKte Acosta RN Body Position: position changed independently [...] Recent Flowsheet Documentation Taken 10/13/2023113 by Darya Knxo RN Head of Bed (HOB) Positioning: HOB [...] Documentation Taken 10/12/2023 1556 by Kate Acosta commercial green retrofit architect Interventions: medication (see MAR) cold applied Taken [...] Flowsheet Documentation Taken 10/11/20232236 by Darya Knox, commercial green retrofit architect Interventions: medication (see MAR) cold applied Intervention: [...] Cotto MD - 10/11/2023 11:15 AM CDT [facility] Brief Operative Note Pre-operative diagnosis: Previous [...] Cotto MD - 10/11/2023 9:13 AM CDT [facility] Obstetrics Operative Report Surgery Date: October [...] counts were correct x2. MD Matthew Valencia CHOIRMASTER 10/11/2023 11:17 AM * Pharmacy-Admission Medication History - Ru Jacobs RPH - 10/08/2023 2:52 PM CDT Pre-Admission Medication History Medication history and patient interview completed by pre-admitting RN or pre- op/DIP TANKER. Reviewed by pharmacist, including [facility] dispense records, [facility] Everywhere, and chart review. Ru Jacobs, Pharm.D., BCPS Last Reviewed by Dionisio Sage, RN on 10/04/2023 at 12:15 PM ENVIRONMENTAL PROTECTION SPECIALIST Med List Medication Sig Last Dose aspirin [...] MD LAB - BLOOD ORDERA BLES LABORATORY [facility] Acute Care Lab [address] [facility] Lab (1st floor, no room number) [place] [address], [facility] * Surgical Pathology Exam (10/11/2023 9:33 AM CDT) Case Report Surgical Pathology Report ? Case: [id number] ? Authorizing Provider: ??Brittany Cotto MD ?Collected: ? 10/11/2023 09:33 AM ? Ordering Location: ? [facility] ?? Received: ?10/11/2023 09:54 AM ? [...] is sectioned and displays a stellate lumen. Alternative Energy Engineer sections of the specimen are submitted as follows: A1-first described unoriented fallopian tube (inked black-fimbriated end submitted entirely) [id number] described unoriented fallopian tube to include paratubal cysts (paratubal cysts and fimbriated end submitted entirely) (ROBERT Smith (ASCP) 10/14/2023 1:46 PM CDT LABORATORY Microscopic Description Microscopic examination was performed. Results are incorporated into the final diagnosis. All controls stained appropriately. 10/14/2023 1:46 PM CDT LABORATORY Performing Labs The technical component of this testing was completed at [facility] Laboratory 10/14/2023 1:46 PM CDT LABORATORY Case Images 10/14/2023 1:46 PM CDT LABORATORY Tissue BOTH FALLOPIAN TUBES / Unknown Non-blood Collection / Unknown 10/11/2023 9:33 AM CDT 10/11/2023 9:54 AM CDT Brittany CLAUDIO - [facility] LABORATORY [facility] Acute Care Lab [address] 1st floor, [address] [place] [address], [facility] LABORATORY [facility] Acute Care Lab [address] [facility] Lab (1st floor, no room number) [place] [address], [facility] * Symptomatic Influenza A/B, RSV, [...] the Xpert Xpress CoV2/Flu/RSV Assay on the [employer] GeneXpert Instrument. This test should be ordered [...] management. This test was validated by the [facility]. These laboratories are certified under the Clinical Laboratory Improvement Amendments of 1988 (CLIA-88) as qualified to perform high complexity laboratory testing. Brittany Cotto MD LAB - MICRO GENERA L ORDERABLES [facility] Acute Care Lab [address] [facility] Lab (1st floor, no room number) [place] [address], [facility] * Symptomatic COVID-19 Virus (Coronavirus) [...] the Xpert Xpress SARS-CoV-2 Assay on the [employer] The[employer]Xpert Instrument Systems. Additional information about this Emergency [...] MD LAB - MICRO GENERA L ORDERABLES [facility] Acute Care Lab [address] Lab (1st floor, no room number) [place] [address] * HIV-1 Antibody (External [...] HIM EXTERNAL R ESULT Performing Organization Address [facility]/ZIP Co de Phone Number EXTERNAL LAB External Lab * (ABNORMAL) Group B Streptococcus (External Result) (09/26/2022 3:00 PM CDT) Group B Streptococcus (External) Positive( A) Negative EXTERNAL LAB 09/26/2022 3:00 PM CDT Patient Reported LAB - HIM EXTERNAL R ESULT Performing Organization Address City/[facility] Co de Phone Number EXTERNAL LAB External [...] or analgesic side effects. Hold while on PROTECTIVE SERVICE SPECIALIST or with regular IV opioid dosing. Maximum [...] 0854 ($Given - Provider: Angie Beach APRN BOILER TENDERS SUPERVISOR) ibuprofen (ADVIL/MOTRIN) tablet 800 mg 800 mg, [...] ($New Bag - Provider: Angie Beach APRN BOILER TENDERS SUPERVISOR)1019 (Anesthesia Volume Adjustment - Provider: Angie Beach [...] or analgesic side effects. Hold while on PROTECTIVE SERVICE SPECIALIST or with regular IV opioid dosing. Maximum [...] documented as of this encounter Care Teams Chip Mucker Relationship Specialty Start Date End Date No Ref-Primary, Physician PCP - General 10/11/23 documented as of this encounter
--- OUTSIDE RECORDS SUMMARY | 2023-12-20 17:51 | XMS_ITS | Clinical Summary ---
Author Organization [facility] Address [place], [place] [address] Care Team Providers Care Driver Manager Name Role Phone Timmy Justinjohn Petty CNM Primary Care Provider [phone]- [phone] Allergies No known active allergies Medications Medication [...] MPP Supervision of high-risk 3 Overview: Bárbara John Blackwoodo : 1985 MPP ULTRASOUND/TESTING PATIENT MPP CONSULT [...] delivery) 2021 - Term LTCS for NRFHT, ZEESHANTN, was on labetalol and stopped 6 [...] Department Care Team Description 11/22/[address] [facility] [phone] Darya Thomson MD from Last 3 Months [...] Outcome GA Total Labor Labor/2nd/3rd Weight Sex Type Anes PTL Raina A1 A5 Name Clin IAB SAB 2021 Term 37w 1d 0h 02m 0h 02m 2.42 kg (5 lb 5.4 oz) M CS-Un spec Epidur al N Livin g 9 9 LIANNA LLO,B SAGE BOY Albert diaz MD Complications:-alen barbara hypertension Delivery Location:[facility]) Current Last Filed Vital Signs Vital [...] Hepatitis C screening for age 18-79 2003 Tetanus booster 01/13/2018 01/14/2008 Influenza for age 9-49 03/01/2024 Pap test for age 21-65 11/21/2026 11/22/2023, 2023 Tdap Completed 01/14/2008 COVID-19 vaccine series Completed 05/17/20 23, 02/07/2022, 11/12/2020, Additional history exists Pneumococcal series for age 6-64 Aged Out No longer eligible based on patient's age to complete this topic Procedures Procedure Name Priority Date/Time Associated Diagnosis Comments LAB TRACKING EVENT Routine 11/22/2023 12 :00 PM CDT ALTERATION WORKER THIN PREP PAP SCREEN IMAGED Routine 11/22/2023 9:15 AM CDT HPV THIN PREP Routine 11/22/2023 9:15 AM CDT from Last 3 Months Results * LAB TRACKING EVENT (11/22/2023 12:00 PM CDT) Other (Other) Client Collect / Unknown 11/22/2023 12:00 PM CDT 11/22/2023 3:04 PM CDT Darya Thomson MD LAB BILL ONLY [facility] [address] [place] [address], * ALTERATION WORKER THIN PREP PAP SCREEN IMAGED (11/22/2023 9:15 AM CDT) Case Report Gynecologic Cytology Report ? Case: [id number] ? Authorizing Provider: ??Darya Thomson MD ??Collected: ? 11/22/2023 0915 ? Ordering Location: ? [facility] ?Received: ?11/24/2023 1131 ? First Screen: ?Andria Charles ? Specimen: ?ALTERATION WORKER ThinPrep Vial Screening, Cervical ? 12/05/2023 5:18 PM [facility] INTERPRETATION/ RESULT NEGATIVE FOR INTRAEPITHELIAL LESION OR MALIGNANCY (NIL) (none) 12/05/2023 5:18 PM CDT [facility] IMEN ADEQUACY Satisfactory for evaluation Endocervical component present Scant cellularity 12/05/2023 5:18 PM CDT [facility] HPV REQUEST HPV and PAP 12/05/2023 5:18 PM CDT [facility] Last Pap Date 03/11/2019 12/05/2023 5:18 PM CDT [facility] Last Pap Result NIL 5:18 PM CDT [facility] Abnormal Pap or [place] Bx in last 5 years No 12/05/2023 5:18 PM CDT [facility] Menstrual Status 12/05/2023 5:18 PM CDT [facility] [place] Bx Done Today No 12/05/2023 5:[address] [facility] Additional Information delivery 10/11/23 12/05/2023 5:[address] [facility] Comment: Interpreted at [facility] - [address] [facility] [address], [place] [address] Automated Review Successful 12/05/2023 5:[address] [facility] Comment:Specimen processed s uccessfully by automated jute bag clipper device, ThinPrep Imaging System, [employer] ANCILLARY TESTING ALTERATION WORKER HPV Ordered, Please see separate report 12/05/2023 5:[address] [facility] Note The pap test is a screening technique, not a diagnostic procedure. It is used primarily to screen for squamous cancers and precursor lesions. Published studies have shown that it is subject to both false negative and false positive results. The pap test should not be used as the sole means to diagnose or exclude pre-malignant and malignant lesions. 12/05/2023 5:[address] [facility] Other (Cervical) 11/22/2023 9:15 AM CDT 11/24/2023 11:31 AM CDT Darya Thomson MD PATHOLOGY/CYTOLO GY [facility] [address] [place] [address], * HPV HIGH RISK (11/22/2023 9:15 AM CDT) TYPE 16 Negative Negative 11/28/2023 2:22 PM CDT [facility] TYPE 18 Negative Negative 11/28/2023 2:22 PM CDT [facility] OTHER HIGH RISK TYPES Negative Negative 11/28/2023 2:22 PM CDT [facility] Other (Cervical) 11/22/2023 9:15 AM CDT 11/24/2023 11:31 AM CDT Narrative [facility] - 11/28/2023 2:22 PM CDT HPV types 16, 18, 31, 33, 35, 39, 45, 51, 52, 56, 58, 59, 66 and 68 DNA were undetectable or below the pre-set threshold. Methodology: Rosie Carlos 4800 HPV Test Darya Thomson MD MICROBIOLOGY [facility] [address] [place] [address], from Last 3 Months Care Teams Driver Manager Relationship Specialty Start Date End Date Jerri Justin CNM [address] [place] [address] PCP - General Certified Nurse Concierge Receptionist 05/30/23
--- OUTSIDE RECORDS SUMMARY | 2023-12-20 17:51 | XMS_ITS | Encounter Summary ---
Author Organization [facility] Address [address] [place] [address] Care Team Providers Care End Trimmer Name Role Phone No Ref-Primary, Physician Primary Care Provider Encounter Details Date Type Department Care Team (Late st Contact Info) Description 10/07/2023 External Order Results [facility] [address] [place] [address] Outside, Provider Social History Tobacco Use Types [...] documented as of this encounter Care Teams End Trimmer Relationship Specialty Start Date End Date No Ref-Primary, Physician PCP - General 10/11/23 documented as of this encounter
--- OUTSIDE RECORDS SUMMARY | 2023-12-20 17:51 | XMS_ITS | Encounter Summary ---
Author Organization [facility] Address [address] [place] [address] Care Team Providers Care Port Surveyor Name Role Phone Unavailable Primary Care Provider [...]
--- OUTSIDE RECORDS SUMMARY | 2023-12-20 17:51 | XMS_ITS | Encounter Summary ---
Author Organization [facility] Address [address] [place] [address] Care Team Providers Care Almond Paste Molder Name Role Phone No Ref-Primary, Physician Primary Care Provider Encounter Details Date Type Department Care Team (Late st Contact Info) Description 10/03/2023 Orders Only [facility] [address] [place] [address] Brittany Cotto MD [address] [address] [place] [address] Pre-op exam (Primary Dx) Social History Tobacco [...] documented as of this encounter Care Teams Almond Paste Molder Relationship Specialty Start Date End Date No Ref-Primary, Physician PCP - General 10/11/23 documented as of this encounter
--- OUTSIDE RECORDS SUMMARY | 2023-12-20 17:51 | XMS_ITS | Encounter Summary ---
Author Organization [facility] Address [address] [place] [address] Care Team Providers Care Associate Professor Of Engineering Name Role Phone Unavailable Primary Care Provider [...] [facility] STATISTIC IV PUSH SINGLE INITIAL SUBSTANCE CT ECHO MYOCARD BX CT INJECTION, PERFLUTREN LIPID MICROSPHERES, PER ML CT TTE W/DOPPLER, COMPLETE CT IV PUSH SINGLE, INITIAL SUBSTANCE CT TTE W/DOPPLER, COMPLETE CT TTE W/DOPPLER, COMPLETE HC US GUIDE FOR PERICARDIOCENTESIS HC ECHO MYOCARD BX HC IV PUSH SINGLE, INITIAL SUBSTANCE HC STATISTIC IV PUSH SINGLE INITIAL SUBSTANCE HC ECHO COMPLETE W DOPPLER W CONTRAST HC ECHO COMPLETE W DOPPLER W/O CONTRAST Melvina Fenton MD [address] [place] [address] [address] [place] [address] Referral ID Status Reason Start Date Expiration Date Visits Re quested Visits Authorized [id number] Closed 10/08/2023 10/07/2024 1 1 Reason for [...] [facility] STATISTIC IV PUSH SINGLE INITIAL SUBSTANCE CT ECHO MYOCARD BX CT INJECTION, PERFLUTREN LIPID MICROSPHERES, PER ML CT TTE W/DOPPLER, COMPLETE CT IV PUSH SINGLE, INITIAL SUBSTANCE CT TTE W/DOPPLER, COMPLETE CT TTE W/DOPPLER, COMPLETE HC US GUIDE FOR PERICARDIOCENTESIS HC ECHO MYOCARD BX HC IV PUSH SINGLE, INITIAL SUBSTANCE HC STATISTIC IV PUSH SINGLE INITIAL SUBSTANCE HC ECHO COMPLETE W DOPPLER W CONTRAST HC ECHO COMPLETE W DOPPLER W/O CONTRAST Melvina Fenton MD [address] [place] [id number] Referral ID Status Reason Start Date Expiration Date Visits Re quested Visits Authorized [id number] Closed 10/08/2023 10/07/2024 1 1 Encounter Details Date Type Department Care Team (Latest Contact Info) Description 10/08/2023 12:13 PM CDT - 10/08/2023 1:29 PM CDT Hospital Encounter [facility] [address] [facility] [address] [place] [address] Melvina Fenton MD [address] [place] [address] [id number] Chest pain Discharge Disposition: Home or Self [...] PM CDT Narrative 10/08/2023 1:40 PM CDT [id number]^ELICEO^MELVINA^Jannet [facility] [address] [place] [address] Name: BÁRBARA FULLER : 1985 Study Date: 10/08/2023 12:27 PM Age: 38 yrs Gender: Female Patient Location: [facility] Reason For Study: Chest pain [...] Procedure Note Shakeel Burrows MD - 10/08/2023 [id number]^ELICEO^MELVINA^Jannet [facility] [address] [place] [address] Name: BÁRBARA FULLER : 1985 Study Date: 10/08/2023 12:27 PM Age: 38 yrs Gender: Female Patient Location: [facility] Reason For Study: Chest pain [...]
--- OUTSIDE RECORDS SUMMARY | 2023-12-20 17:51 | XMS_ITS | Encounter Summary ---
Author Organization [facility] Address [address] [place] [address] Care Team Providers Care Soccer Referee Name Role Phone Unavailable Primary Care Provider [...]
== END 2023-12-16 10:07 | disposition home or self-care (01) ==
LOC: NFLDREF 12-20 17:48
PROVIDERS: Visit Provider Internal Medicine Nephrology
DX: O12.10 Gestational proteinuria, unspecified trimester (principal)
CPT/HCPCS: 80069; 82043; 82570; 84156